=== PATIENT | female | born 1945 | race Caucasian/White ===

== ENCOUNTER → 2017-07-20 09:05 | Outpatient (CLI) | payer MEDICARE, OTHER, SELFPAY ==
[2017-07-20 10:31] LABS: Hemoglobin 14.6 g/dl (12.0-15.0); Mean Corp Hgb Conc 34.8 g/gl (32-36); Mean Corpuscular Hgb 29.7 pg (27.0-32.0); Mean Corpuscular Volume 85.4 fL (81-99); Mean Platelet Vol. 10.3 fl (6.2-12.0); Platelet Count 289 K/mm3 (150-450); RBC Distribution Width CV 12.9 % (11.6-14.6); RBC Distribution Width SD 39.8 fl (35.1-43.9); Red Blood Count 4.92 M/mm3 (4.2-5.4); White Blood Count 4.9 K/mm3 (4.4-11.0)
[2017-07-20 10:41] LABS: Scan Indicated on CBC? Y/N NO
[2017-07-20 10:46] LABS: Microalbumin,Random Urine 11.8 mg/L (NO RANGE EST.); Microalbumin:Creatinine Ratio 19.4 mg/g CRE (<30 mg/g CRE)
[2017-07-20 11:09] LABS: ALB/GLOB Ratio 1.1 RATIO (0.9-2.4); AST(SGOT) 16 U/L (15-37); Alanine Aminotransfer ALT/SGPT 22 U/L (13-56); Alkaline Phosphatase 84 U/L (45-117); Anion Gap 7 (5-15); BUN 14 mg/dL (7-18); BUN/Creat Ratio 17.1 RATIO (10-20); Calcium,Total 8.9 mg/dL (8.5-10.1); Chloride 107 mmol/L (98-107); Cholesterol 189 mg/dL (200); Creatinine, Serum 0.82 mg/dL (0.55-1.02); EST Glomerular Filtration Rate 73 mL/min (>60); Est Glom Filt Rate - Afr Amer 89 mL/min (>60); Globulin 3.8 g/dL (2.2-4.2); Glucose 94 mg/dL (74-106); High Density Lipoprotein 56 mg/dL; Potassium 3.6 mmol/L (3.5-5.1); Protein, Total 7.8 g/dL (6.4-8.2); Sodium Level 140 mmol/L (136-145); Thyroid Stim Hormone (TSH) 3.98 uIU/mL (0.358-3.74); Triglycerides 124 mg/dL; Very Low Density Lipoprotein 25 mg/dL (5-40)
[2017-07-21 10:49] LABS: Vitamin D,25 Hydroxy 72.8 ng/mL (29.95-100.01)
== END ==
PROVIDERS: Family Provider Family Medicine; PCP Family Medicine; Visit Provider Family Medicine
DX: Z00.00 Encounter for general adult medical examination without abnormal findings (principal); M85.80 Other specified disorders of bone density and structure, unspecified site
CPT/HCPCS: 36415; 80053; 80061; 82043; 82306; 82570; 84443; 85027

== ENCOUNTER → 2017-08-26 08:15 | Outpatient (CLI) | payer MEDICARE, OTHER, SELFPAY ==
--- NOTE | 2017-08-26 08:19 | US_ITS ---
STUDY: ABDOMINAL ULTRASOUND - RIGHT UPPER QUADRANT REASON FOR VISIT: Female, 72 years old. Epigastric pain. TECHNIQUE: Ultrasound evaluation of the right upper quadrant was performed with real-time and static post-scale imaging. TECHNICAL QUALITY: Adequate. COMPARISON: Comparison is made with prior examination dated February 05, 2009. FINDINGS: Liver: The liver measures 14.6 cm. There is normal echogenicity of the liver. The bile ducts are within normal limits. There is hepatic color flow. The direction of portal flow is hepatopetal. 2 cysts are seen in the right lobe. The larger measures 7.8 cm x 6.2 cm x 7 cm. This has increased in size as compared to prior study.. Gallbladder: Normal distended gallbladder. The gallbladder wall measures 2.1 mm. There is a negative sonographic Rondon's sign. There is no pericholecystic fluid. There are no gallstones. Sludge is seen within the gallbladder lumen. There is evidence of a 5 mm x 5 mm x 4 mm polyp. Common Bile Duct (C.B.D.): The common bile duct measures 8.2 mm. Pancreas: Normal size of the head, body and tail of the pancreas. There is normal echogenicity of the pancreas. There is no demonstrated pancreatic mass or cyst. Right Kidney: Normal size of the right kidney. The right kidney measures 11.1 cm x 4.1 cm x 3.7 cm. Normal renal cortex. The right cortex measures 1.4 cm. There is a 1 cm x 1 cm x 1 cm cyst. There is no right hydronephrosis. US/Abdomen Limited IMPRESSION: Dominant cyst in the right lobe of the liver. Small amount of sludge within the gallbladder lumen. Gallbladder polyp. Small right renal cyst. Mild dilatation of the common bile duct. Electronically Signed: Carlos Manuel Jamison MD at 15:33 EDT Tel [phone], Service support ,
== END ==
PROVIDERS: Family Provider Family Medicine; PCP Family Medicine; Visit Provider Family Medicine
DX: R10.13 Epigastric pain (principal)
CPT/HCPCS: 76705

== ENCOUNTER 2017-09-09 09:24 | Day surgery (SDC) | payer MEDICARE, OTHER, SELFPAY ==
[2017-09-09] VITALS (10 sets, daily range): BP systolic 147–172; BP diastolic 80–92; PULSE 51–66; RESP 14–18; TEMP 36.1–36.4; O2SAT 95–100; BMI 26.6
--- NOTE | 2017-09-09 | GALL_PTH ---
PATIENT: ZAID ALARCON LOC: [facility] [place] U#:[id number] AGE/SX: 72/F ROOM: RE09/09/[address]: Dr. Jean Velazquez MD : [id number] BED: DIS: 09/09/2017 SPEC #: [id number] RECD: 09/10/17 08:52 STATUS: NOE EUGENIO #: [id number] JOHN: 09/09/17 00:[address]: Jean Velazquez DEPT: SURGICAL PATHOLOGY RECD BY: Castillo Lou ENTERED: 09/10/17 08:52 SP TYPE: CHLOÉ VERGARA DR: Dr. Juvencio Velazquez MD Tissues: Gallbladder, NOS Procedures: Surgery Specimen Level III HEADER OPERATION: Laparoscopic cholecystectomy PRE-OP DIAGNOSIS: Sludge in gallbladder, polyp of gallbladder, right upper quadrant abdominal pain TISSUE SUBMITTED: Gallbladder MICROSCOPIC DIAGNOSIS Gallbladder: Chronic cholecystitis, cholelithiasis and focal cholesterolosis. SJ:abran 09/13/17 COMMENT The polypoid lesion is consistent with cholesterolosis. MICROSCOPIC DESCRIPTION Slides are reviewed. GROSS DESCRIPTION Received is one container labeled with the patient's name and designated gallbladder. The specimen consists of a gallbladder measuring 8 cm in length and 3 cm in diameter. The external surface is pink-brady, smooth and glistening for the most part. Focally it is granular, hemorrhagic and contains cautery artifact. The gallbladder contains green-yellow mucoid bile and multiple black stones and sludge material measuring in aggregate 1 x 1 x 0.3 cm and 0.1 to 0.3 cm in greatest dimension. The mucosa shows a polypoid lesion measuring 0.2 cm in greatest dimension consistent with cholesterolosis. The gallbladder wall measures up to 0.2 cm in thickness. Brass Burnisher sections from the gallbladder and the cystic duct are submitted in one cassette. / SJ:rg 09/10/17 TC:3 CPT: 88906
--- NOTE | 2017-09-09 09:36 | EKG12_ITS ---
Test Reason : POST OP Blood Pressure : / mmHG Vent. Rate : 056 BPM Atrial Rate : 056 BPM P-R Int : 152 ms QRS Dur : 114 ms QT Int : 522 ms P-R-T Axes : 030 -07 100 degrees QTc Int : 503 ms Sinus bradycardia Left ventricular hypertrophy with repolarization abnormality Prolonged QT Abnormal ECG When compared with ECG of 09-SEP-2017 09:50, MANUAL COMPARISON REQUIRED, DATA IS UNCONFIRMED Confirmed by STEVO ENGEL, PONCE ([id number]), scientific editor NATALIE TOUSSAINT ([id number]) on 09/13/2017 2:18:26 PM Referred By: Jean Velazquez Confirmed By:PONCE WHITESIDE MD
[2017-09-09] MEDS: Bupivacaine Mpf 0.5% 30 ML VIAL (10:42)
[2017-09-09] MEDS: Cefazolin 2 GM in 0.9% Normal Saline 100 ML IV (11:00)
--- NOTE | 2017-09-09 11:11 | OP.PCM_ITS ---
Problem List (1) Sludge in gallbladder Status: Acute (2) Gallbladder polyp Status: Acute (3) Right upper quadrant pain Status: Acute Report of Operation Date of Procedure: 09/09/17 Pre-Operative Diagnosis: r82.8 sludge in gall bladder. k82.4 gallbladder polyp. r10.11 ruq abd pain Post-Operative Diagnosis: same Surgery/Procedure Performed:: Laparoscopic cholecystectomy Type of Anesthesia:: General Anesthesiologist: Juvencio Arellano Description of Procedure: Patient was brought into the operating room. Placed in supine position. Under excellent general endotracheal intubation the abdomen was sterilely prepped and draped in the usual fashion. Local was injected infraumbilically. Previous incision was opened. Dissection was carried down to the fascia. Fascia was grasped with Mariama. Varies needle was placed inside the abdomen. The abdomen was insufflated to 15 torr. A 10/12 trocar was placed. Patient was placed in the head up and rotated to the left position. A subxiphoid #5 trocar was placed , inferior to this another #5 trocar was placed, and laterally a #5 trocar was placed. All these under direct visualization without injury to underlying structures. Fundus of the gallbladder was grasped and retracted in a cephalad direction. Moderate amount of adhesions were taken down with electrocautery. I grasped the infundibulum and retracted laterally dissected out the cystic duct and the cystic artery. I placed hemoclips proximally and distally on the duct and proximally and distally on the artery and ligated in between. I deliver the gallbladder from the gallbladder bed with use of electrocautery at small spillage of bile which I was able to retrieve very easily. I placed a specimen a specimen bag delivered through the umbilical port with out difficulty. I irrigated the right upper quadrant used electrocautery for good hemostasis on the liver bed once I had achieved this and retrieved all the irrigant I then remove the trochars under direct visualization. The fascia the umbilical port was closed with figure 8 stitch of 0 Vicryl. Skin incisions were closed with subcuticular stitches of 4-0 Monocryl. Steri-Strips are applied sterile dressings were applied and the patient tolerated the procedure well. - Admit VTE Documentation VTE Present on Admission: No VTE Mechan Device Prophylaxis: SCD's VTE Pharm Prophylaxis ordered?: No Reason prophylaxis not ordered:: Treatment Not Indicated
--- NOTE | 2017-09-09 11:11 | PCM.DC.GB ---
Discharge Diet: Light diet - advance as tolerated Discharge Activity: May Not Drive - for 2-3 days or while taking narcotic pain medications., - - Do not drive, work heavy equipment or sign legal documents for 24 hours. May shower in (days): 1 - with the bandage in place. Additional Activity Instructions:: Pain medication may cause nausea. You should typically eat light foods as you take your pain medications. Pain medication may also cause constipation. If this is a problem for you, please discuss with your doctor. Call your doctor if your incision/area has: Continuous Slow Oozing, Sudden Increased Bleeding, Increased Pain/ Swelling, Increased Redness, Foul Smelling Discharge Call your doctor if you observe: Fever of 101 or Higher Suture Line Care: Avoid Pulling/Pushing, Avoid Pinching/Bending Additional Dressing/Incision Instructions:: Leave operative bandaids on for 2 days. When you remove dressing, leave Steri-Strips on until your follow-up appointment, or until the Steri-Strips fall off on their own. Allergies/Adverse Reactions: Allergies adhesive Allergy (Verified 09/08/17 08:17) Rash hydrocodone bitartrate [From Vicodin] Allergy (Verified 09/07/17 08:34) Other NUMBNESS ON ONE SIDE OF BODY shellfish derived Allergy (Verified 09/08/17 08:17) Swelling Sulfa (Sulfonamide Antibiotics) Allergy (Verified 09/08/17 08:17) Swelling aspartame Adverse Reaction (Verified 09/08/17 08:17) Other MIGRAINE MORLEY Medications to take at Discharge Aspirin E.C. [Ecotrin] 81 mg PO DAILY 01/16/13 Multivitamins,Ther W-Minerals [Multivitamin With Minerals] 1 tab PO DAILY 01/16/13 calcium citrate 200 mg (950 mg) tablet 200 mg PO BID tab 09/07/17 carvedilol 6.25 mg tablet 6.25 mg PO BID 09/07/17 cholecalciferol (vitamin D3) 1,000 unit capsule 1,000 unit PO QDAY 09/07/17 irbesartan 150 mg tablet 75 mg PO QDAY 09/07/17 magnesium oxide 400 mg capsule 400 mg PO DAILY cap 09/07/17 Ascorbic Acid [Vitamin C] 1,000 mg PO DAILY 09/08/17 Anastrozole [Arimidex] 1 mg PO DAILY 09/09/17 L. Acidophilus/Pectin, [place] [Acidophilus-Pectin Captab] 1 each PO DAILY 09/09/17 Oxycodone HCl/Acetaminophen [Percocet 5/325] 1 - 2 tab PO Q4H PRN PRN 5 Days #30 tab 09/09/17 The following prescriptions were given: Oxycodone HCl/Acetaminophen [Percocet 5/325] 1 - 2 tab PO Q4H PRN PRN 5 Days #30 tab PRN Reason: Pain Primary Care Physician: Juvencio Velazquez MD [Primary Care Provider] - Test Results: Test results from this visit will be discussed in further detail at your follow-up appointment, if applicable. Please Follow Up With: Jean Velazquez MD - Please call [phone] to schedule an appointment. When: 7 days after your surgery.
--- NOTE | 2017-09-09 12:41 | EKG12_ITS ---
Test Reason : PRE OP Blood Pressure : / mmHG Vent. Rate : 050 BPM Atrial Rate : 050 BPM P-R Int : 146 ms QRS Dur : 104 ms QT Int : 506 ms P-R-T Axes : 013 -06 096 degrees QTc Int : 461 ms Sinus bradycardia Left ventricular hypertrophy with repolarization abnormality Abnormal ECG When compared with ECG of 16-JAN-2013 15:19, Nonspecific T wave abnormality, improved in Anterior leads Confirmed by STEVO ENGEL, PONCE ([id number]), film editor NATALIE TOUSSAINT ([id number]) on 09/13/2017 2:18:58 PM Referred By: Jean Velazquez Confirmed By:PONCE WHITESIDE MD
[2017-09-09] MEDS: oxyCODONE 5 MG Tablet PO (15:02)
== END 2017-09-09 18:03 | disposition home or self-care (01) ==
LOC: SDC 09:24 → AC 09:25
PROVIDERS: Anesthesiology; Family Provider Family Medicine; PCP Family Medicine; Visit Provider Surgery
PROC: (CPT 47562; principal; 2017-09-09 11:10)
DX: K80.10 Calculus of gallbladder with chronic cholecystitis without obstruction (principal); K82.8 Other specified diseases of gallbladder; K21.9 Gastro-esophageal reflux disease without esophagitis; M79.7 Fibromyalgia; I10 Essential (primary) hypertension; M10.9 Gout, unspecified; Z85.3 Personal history of malignant neoplasm of breast; Z79.82 Long term (current) use of aspirin; Z79.899 Other long term (current) drug therapy
CPT/HCPCS: 47562; 84484; 88304; 93005; J7120; J2405

== ENCOUNTER → 2018-06-23 12:42 | Outpatient (CLI) | payer MEDICARE, OTHER, SELFPAY ==
--- NOTE | 2018-06-23 13:04 | BI_ITS ---
MAMMOGRAPHY - BILATERAL SCREENING 3-D TOMOSYNTHESIS REASON FOR EXAM: Female, 73 years old. Bilateral Screening 3-D tomosynthesis PERTINENT HISTORY: Personal history of breast cancer with previous left lumpectomy. TECHNIQUE: 2-D mammograms and 3-D Tomosynthesis of the breast (s) were performed. CAD was performed. COMPARISON: 03/05/2017 FINDINGS: The breast composition is heterogeneously dense that can obscure small breast masses. Stable architectural distortion in the left breast from previous surgery stable popcorn like calcification in the lower inner left breast. Scattered benign calcifications are seen. No dense spiculated masses or suspicious microcalcifications are identified. No architectural distortion is identified in the right breast. There is no skin thickening or retraction. There has been no significant change since the prior study. BI/SCREENING MAMM (CAD), BILAT IMPRESSION: No mammographic signs of malignancy. Routine yearly mammograms recommended. ASSESSMENT CATEGORY: BIRADS Category 2: Benign. A letter regarding these results will be sent to the patient by the facility within 30 days. FOLLOW UP RECOMMENDATION: Yearly follow up mammogram recommended. (A) Approximately 10% of breast cancers are not detected by mammography. A normal mammogram should not delay biopsy of a clinically suspicious abnormality. Electronically Signed: Mariano Puri MD at 14:51 EDT , Service support ,
== END ==
PROVIDERS: Family Provider Family Medicine; PCP Family Medicine; Referring Provider Family Medicine; Visit Provider Family Medicine
DX: Z12.31 Encounter for screening mammogram for malignant neoplasm of breast (principal); C50.912 Malignant neoplasm of unspecified site of left female breast
CPT/HCPCS: 77063; 77067

== ENCOUNTER → 2019-03-14 11:13 | Outpatient (CLI) | payer MEDICARE, OTHER, SELFPAY ==
[2017-09-09 09:49] VITALS: BMI 26.6
--- NOTE | 2019-03-14 11:21 | RAD_ITS ---
STUDY: X-RAY CHEST REASON FOR EXAM: Female, 73 years old. Hypertension. Breast cancer. TECHNIQUE: Frontal and lateral views of the chest. COMPARISON: None. FINDINGS: The lungs are clear and expanded. There is no demonstrated pleural abnormality. Normal size heart. Normal mediastinum and rick. Normal visualized pulmonary arteries. There is atherosclerotic tortuosity of the aortic arch and descending thoracic aorta. Normal visualized thoracic spine. Normal visualized ribs, clavicles, and shoulders. There is no demonstrated abnormality of the visualized soft tissue structures of the upper abdomen. RAD/Chest PA and Lateral IMPRESSION: No acute chest disease. Electronically Signed: Rafi Plaza MD at 22:51 EST , Service support ,
== END ==
PROVIDERS: Family Provider Family Medicine; PCP Family Medicine; Referring Provider Family Medicine; Visit Provider Family Medicine
DX: I10 Essential (primary) hypertension (principal)
CPT/HCPCS: 71046

== ENCOUNTER → 2019-03-17 08:03 | Outpatient (CLI) | payer MEDICARE, OTHER, SELFPAY ==
[2019-03-17 10:20] LABS: Absolute Neutrophil Count 4.2 X10^3/uL (2.0-7.7); Basophil# 0.02 X10^3/uL; Basophil% 0.3 % (0-1); Eosinophil# 0.05 X10^3/uL; Eosinophils% 0.8 % (0-5); Hematocrit 46.7 % (37-47); Hemoglobin 15.3 g/dL (12.0-15.0); Lymphocyte % 20.1 % (19-41); Mean Corp Hgb Conc 32.8 g/dL (32-36); Mean Corpuscular Hgb 28.5 pg (27.0-32.0); Mean Platelet Vol. 10.2 fl (6.2-12.0); Monocyte# 0.47 X10^3/uL; Monocyte% 7.9 % (0-10); NRBC Flagged by Analyzer 0 % (0-5); Neutrophil # 4.22 X10^3/uL (2.7-7.7); Neutrophil % 70.7 % (47-70); Platelet Count 291 K/mm3 (150-450); RBC Distribution Width CV 12.6 % (11.6-14.6); RBC Distribution Width SD 39.8 fl (35.1-43.9); Red Blood Count 5.37 M/mm3 (4.2-5.4)
[2019-03-17 10:44] LABS: Microalbumin,Random Urine 13.6 mg/L (NO RANGE EST.); Microalbumin:Creatinine Ratio 10.2 mg/g CRE (<30 mg/g CRE)
[2019-03-17 10:46] LABS: AST(SGOT) 13 U/L (15-37); Alanine Aminotransfer ALT/SGPT 25 U/L (13-56); Albumin, Serum 3.8 g/dL (3.2-5.0); Alkaline Phosphatase 91 U/L (45-117); Anion Gap 5 (5-15); BUN 14 mg/dL (7-18); BUN/Creat Ratio 14.8 RATIO (10-20); Calcium,Total 9.5 mg/dL (8.5-10.1); Chloride 109 mmol/L (98-107); Cholesterol 211 mg/dL (200); Creatinine, Serum 0.95 mg/dL (0.55-1.02); EST Glomerular Filtration Rate 61 mL/min (>60); Est Glom Filt Rate - Afr Amer 74 mL/min (>60); Globulin 3.8 g/dL (2.2-4.2); Glucose 107 mg/dL (74-106); High Density Lipoprotein 54 mg/dL; Protein, Total 7.6 g/dL (6.4-8.2); Sodium Level 141 mmol/L (136-145); T4 Free Direct 1.27 ng/dL (0.76-1.46); Thyroid Stim Hormone (TSH) 3.09 uIU/mL (0.358-3.74); Triglycerides 118 mg/dL; Very Low Density Lipoprotein 24 mg/dL (5-40)
== END ==
PROVIDERS: PCP Family Medicine; Referring Provider Family Medicine; Visit Provider Family Medicine
DX: I10 Essential (primary) hypertension (principal)
CPT/HCPCS: 36415; 80053; 80061; 82043; 82570; 84439; 84443; 85025

== ENCOUNTER → 2019-03-25 08:17 | Outpatient (CLI) | payer MEDICARE, OTHER, SELFPAY ==
[2017-09-09 09:49] VITALS: BMI 26.6
[2019-03-31 13:24] LABS: Aldosterone, Serum 6.4 ng/dL (0.0-30.0)
== END ==
PROVIDERS: PCP Family Medicine; Referring Provider Family Medicine; Visit Provider Family Medicine
DX: E87.0 Hyperosmolality and hypernatremia (principal)
CPT/HCPCS: 36415; 82088; 84244

== ENCOUNTER 2019-03-31 14:18 | Inpatient (IN) | payer MEDICARE, OTHER, SELFPAY ==
[2019-03-31] VITALS (8 sets, daily range): BP systolic 106–150; BP diastolic 69–94; PULSE 61–84; RESP 16–20; TEMP 36.2–37.2; O2SAT 94–98; BMI 30.1; BMI 28.9
--- NOTE | 2019-03-31 14:44 | EKG12_ITS ---
Test Reason : SYNCOPE Blood Pressure : / mmHG Vent. Rate : 065 BPM Atrial Rate : 065 BPM P-R Int : 150 ms QRS Dur : 104 ms QT Int : 446 ms P-R-T Axes : 039 -06 080 degrees QTc Int : 463 ms Normal sinus rhythm Left ventricular hypertrophy with repolarization abnormality Abnormal ECG Confirmed by WAQAS ENGEL, RAUL ([id number]), state editor SANDHYA ADKINS ([id number]) on 04/03/2019 3:29:26 PM Referred By: ROBLES Confirmed By:RAUL ALAN MD
--- NOTE | 2019-03-31 14:50 | ED.VIS.GEN ---
History of Present Illness Chief Complaint: Syncope Informant: Patient, Significant Other Onset: Today Narrative: Patient is a 73-year-old female with history of difficult to control hypertension as well as fibromyalgia presenting after syncopal episode. Patient states she was eating lunch when she was sitting at the table and started to feel lightheaded. She states she was having tunnel vision. Patient thought she put her head down on a table but then states the next thing she knew EMS was there. said that she passed out in the chair and initially was slumped to the side and then her head fell backwards. There is no report of any seizure activity. Patient did not bite her tongue or urinate on herself. Patient notes his last week she has felt like she has had the flu. She had aches, fever and myalgias. She also notes that 1 week ago she was put on 2 new blood pressure medications. She thinks 1 is isosorbide mononitrate. She does not recall the name of the other medication. Patient did not take her afternoon medication but did take her morning meds. She states yesterday when she was lying in bed and she felt so sick that she could get out of bed she checked her blood pressure and it was 74 systolic. Per EMS report patient's blood pressure was in the 80s on their arrival. Patient states that she currently feels a little better but still feels ill. Patient, she is had a dry cough that is been nonproductive. She denies any other complaints or concerns at this time. Past Medical History - Allergies and Home Meds Allergies/Adverse Reactions: Allergies adhesive Allergy (Verified 03/31/19 14:29) Rash hydrocodone bitartrate [From Vicodin] Allergy (Verified 03/31/19 16:25) NUMBNESS ON ONE SIDE OF BODY NUMBNESS ON ONE SIDE OF BODY shellfish derived Allergy (Verified 03/31/19 16:37) Angioedema Sulfa (Sulfonamide Antibiotics) Allergy (Verified 03/31/19 16:37) Swelling/hives aspartame Adverse Reaction (Verified 03/31/19 16:25) MIGRAINE MORLEY MIGRAINE MORLEY Past Medical History: - - Hypertension, fibromyalgia, coronary artery disease Surgical History: - - Cardiac catheterization, femoral artery surgery Smoking Status: Never smoker - Family History Maternal Family History: Family History (Last Reviewed 03/31/19 @ 15:58 by ZAMZAM More) Mother Arthritis Hypertension Heart disease High cholesterol Osteoporosis Father Skin cancer Sister Kidney disease lupus/autoimmune disease Paternal Family History: Family History (Last Reviewed 03/31/19 @ 15:58 by ZAMZAM More) Mother Arthritis Hypertension Heart disease High cholesterol Osteoporosis Father Skin cancer Sister Kidney disease lupus/autoimmune disease Review of Systems General: Reports: Chills, Fever, Malaise. Denies: Sweats Eyes: Reports: Blurred Vision - bilaterally - Just prior to syncopal episode. Denies: Visual changes - bilaterally, Diplopia ENT: Denies: Rhinorrhea, Sore throat Cardiovascular: Denies: Chest pain, Palpitations Respiratory: Reports: Cough. Denies: Dyspnea, Dyspnea on exertion Gastrointestinal: Denies: Abdominal pain, Nausea, Vomiting, Diarrhea, Melena, Hematochezia Genitourinary: Denies: Dysuria, Hematuria, Frequency Musculoskeletal: Reports: Myalgias. Denies: Back pain, Extremity Pain Skin: Denies: Rash, Wounds Neurological: Denies: Headache, Weakness, Numbness Physical Exam Vital Signs/Narrative: Vital Signs Temp Pulse Resp BP Pulse Ox 03/31/19 14:21 97.2 F L 64 16 117/76 98 Inital Vital Signs reviewed: Yes General: Well nourished, Well developed, No Acute Distress Head: Normocephalic, Atraumatic Eyes: Perrl, EOMI ENT: Moist mucous membranes, No rhinorrhea, TM's clear Neck: Supple, Nontender, No JVD Cardiovascular: Regular rate, Regular rhythm, No murmurs Respiratory: No distress, CTA bilaterally, Chest nontender Abdomen: Soft, Nontender, Nondistended, Normal bowel sounds Back: Nontender, Normal Inspection Extremities: Nontender, No edema Skin: Normal color, No rash Neurological: Alert, Oriented x3, Cranial nerves II-XII grossly intact, Normal Strength, Normal Sensation Psychological: Normal affect, Normal Mood Diagnostic/Tx/Re-eval Clinical Impression(s) from Imaging Studies Chest X-Ray 03/31/19 14:57 IMPRESSION: No acute abnormality is seen. Electronically Signed: Carlos Manuel Jamison, at 15:34 EST , Service support , Laboratory Data 03/31/19 03/31/19 03/31/19 14:26 14:26 14:26 WBC 4.5 RBC 4.10 L Hgb 11.8 L Hct 35.2 L MCV 85.9 MCH 28.8 MCHC 33.5 RDW Std Deviation 39.2 RDW Coeff of Smiley 12.6 Plt Count 122 L MPV 11.6 Immature Gran % (Auto) 0.200 Neut % (Auto) 73.4 H Lymph % (Auto) 10.8 L Morrison % (Auto) 11.9 H Eos % (Auto) 3.5 Baso % (Auto) 0.2 Absolute Neuts (auto) 3.3 Absolute Lymphs (auto) 0.49 L Nucleated RBC % 0 Differential Comment SCANNED Sodium 142 Potassium 2.3 L* Chloride 116 H Carbon Dioxide 20.0 L Anion Gap 6 BUN 15 Creatinine 0.53 L Estim Creat Clear Calc 43.91 Est GFR (MDRD) Af Amer 146 Est GFR (MDRD) Non-Af 121 BUN/Creatinine Ratio 28.4 H Glucose 118 H Lactic Acid Calcium 5.8 L* Magnesium 1.4 L Troponin I 0.019 Urine Color Urine Clarity Urine pH Ur Specific [place] Urine Protein Urine Glucose (UA) Urine Ketones Urine Occult Blood Urine Nitrite Urine Bilirubin Urine Urobilinogen Ur Leukocyte Esterase 03/31/19 03/31/19 15:26 15:35 WBC RBC Hgb Hct MCV MCH MCHC RDW Std Deviation RDW Coeff of Smiley Plt Count MPV Immature Gran % (Auto) Neut % (Auto) Lymph % (Auto) Morrison % (Auto) Eos % (Auto) Baso % (Auto) Absolute Neuts (auto) Absolute Lymphs (auto) Nucleated RBC % Differential Comment Sodium Potassium Chloride Carbon Dioxide Anion Gap BUN Creatinine Estim Creat Clear Calc Est GFR (MDRD) Af Amer Est GFR (MDRD) Non-Af BUN/Creatinine Ratio Glucose Lactic Acid 1.2 Calcium Magnesium Troponin I Urine Color Yellow Urine Clarity Sl. Cloudy Urine pH 6.5 Ur Specific [place] 1.015 Urine Protein 30 H Urine Glucose (UA) Normal Urine Ketones Negative Urine Occult Blood 25 H Urine Nitrite Negative Urine Bilirubin Negative Urine Urobilinogen 1 H Ur Leukocyte Esterase 25 H - Rhythm Strip Rhythm Strip: Sinus Rhythm Rate: 65 Ectopy: None - EKG Initial EKG Interpretation: Sinus Rhythm, - - Sinus rhythm at a rate of 65 LVH Left axis deviation Normal intervals Normal ST segments - Medical Decision Making Patient is evaluated for an episode of syncope that occurred at home. She was sitting down when it happened. She did feel lightheaded and have some type of prodrome before it. No report of any seizure activity. EKG is normal. Flu swab is negative. Physical exam is benign. Chest x-rays not show any acute process. She was found to have significant electrolyte derangement. Her potassium was 2.3. Her calcium was 5.3. Her lactate is normal. Her kidney function and CBC are normal. I did add on a ionized calcium as well as a magnesium level. Her magnesium is also low. Oral and IV potassium replacement are started in the emergency room. Patient be admitted for further evaluation of her syncope which I suspect is related to her electrolyte abnormalities. Patient's troponin is within normal limits. Magnesium will be replaced per admitting physician. Patient is agreeable with this plan. She stable for PCU at time of disposition. Is possible that her electrolyte derangement might be from her multiple blood pressure medications. Her syncope could be related to her new medication as well and intermittent hypotension. This will be evaluated further. ED Disposition - Plan for ED Patient: Diagnosis: Syncope, Hypocalcemia, Hypokalemia, Low magnesium level
[2019-03-31] MEDS: 0.9% Normal Saline 1,000 ML 1000 ML IV (14:53)
--- NOTE | 2019-03-31 14:57 | RAD_ITS ---
STUDY: X-RAY CHEST REASON FOR EXAM: Female, 73 years old. SYNCOPE EPISODE TODAY, PT WITH COUGH AND WEAKNESS, FLU-LIKE SYMPTOMS SINCE WEDNESDAY -- HX OF HTN AND BREAST CANCER TECHNIQUE: PA and lateral views of the chest. COMPARISON: Comparison is made with prior study dated September 29, 2019. FINDINGS: EKG electrodes are seen. The lungs are clear and expanded. There is no demonstrated pleural abnormality. Normal size heart. Normal mediastinum and rick. Normal visualized pulmonary arteries. There is atherosclerotic calcification of the aortic arch with tortuosity. There are degenerative changes of the visualized thoracic spine. Normal visualized ribs, clavicles, and shoulders. There is no demonstrated abnormality of the visualized soft tissue structures of the upper abdomen. RAD/Chest PA and Lateral IMPRESSION: No acute abnormality is seen. Electronically Signed: Carlos Manuel Jamison, at 15:34 EST , Service support ,
[2019-03-31 15:04] LABS: Absolute Lymphocyte Count 0.49 X10^3/uL (0.83-4.51); Absolute Neutrophil Count 3.3 X10^3/uL (2.0-7.7); Basophil# 0.01 X10^3/uL; Basophil% 0.2 % (0-1); Eosinophil# 0.16 X10^3/uL; Eosinophils% 3.5 % (0-5); Hematocrit 35.2 % (37-47); Hemoglobin 11.8 g/dL (12.0-15.0); Lymphocyte # 0.49 X10^3/ul (4.0); Lymphocyte % 10.8 % (19-41); Mean Corp Hgb Conc 33.5 g/dL (32-36); Mean Corpuscular Hgb 28.8 pg (27.0-32.0); Mean Corpuscular Volume 85.9 fL (81-99); Mean Platelet Vol. 11.6 fl (6.2-12.0); Monocyte# 0.54 X10^3/uL; Monocyte% 11.9 % (0-10); NRBC Flagged by Analyzer 0 % (0-5); Neutrophil # 3.32 X10^3/uL (2.7-7.7); Neutrophil % 73.4 % (47-70); POSITIVE DIFFERENTIAL YES; Platelet Count 122 K/mm3 (150-450); RBC Distribution Width CV 12.6 % (11.6-14.6); RBC Distribution Width SD 39.2 fl (35.1-43.9); White Blood Count 4.5 K/mm3 (4.4-11.0)
[2019-03-31 15:06] LABS: Differential Indicated SCAN CRITERIA MET
[2019-03-31 15:19] LABS: Anion Gap 6 (5-15); BUN 15 mg/dL (7-18); BUN/Creat Ratio 28.4 RATIO (10-20); Calcium,Total 5.8 mg/dL (8.5-10.1); Chloride 116 mmol/L (98-107); Creatinine, Serum 0.53 mg/dL (0.55-1.02); EST Glomerular Filtration Rate 121 mL/min (>60); Est Glom Filt Rate - Afr Amer 146 mL/min (>60); Estimated Creatinine Clearance 43.91 ml/min; Glucose 118 mg/dL (74-106); Potassium 2.3 mmol/L (3.5-5.1); Sodium Level 142 mmol/L (136-145)
[2019-03-31 15:44] LABS: Mucous, Urine 0 SEEN /hpf (<or=2+)
[2019-03-31 15:46] LABS: Color, Urine Yellow (Yellow); Glucose, Dipstick Normal (Normal); Ketone-Dipstick Negative (Negative); Leukocyte Esterase-Dipstick 25 /ul (Negative); Nitrite-Dipstick Negative (Negative); Occult Blood-Urine 25 /ul (Negative); Protein-Dipstick 30 mg/dl (Negative); Specific Gravity, Urine 1.015 (1.002-1.030); Urine Bilirubin Dipstick Negative (Negative); Urine Clarity Sl. Cloudy (Clear); Urine Urobilinogen 1 mg/dl (Normal); Urine pH 6.5 (5.0 - 8.0)
--- NOTE | 2019-03-31 15:53 | PCM.HP.STD ---
Problem List (1) Sludge in gallbladder Status: Chronic (2) Gallbladder polyp Status: Chronic (3) HTN (hypertension) Status: Chronic History of Present Illness Date of Admission: 03/31/19 Chief Complaint: Syncope. The patient is a 73 year old F who presents emergency room due to episode of syncope as well as general malaise. Patient was eating lunch with her when she developed tunnel vision and subsequently passed out. witnessed event. He reports her tongue was sticking out of her mouth and turned blue. He states she lost consciousness for approximately 3 to 4 minutes. He notes she had heavy breathing during that time. He denies any jerking movements or other abnormal observations. Patient reports she has felt generally unwell for the past week and 1/2 to 2 weeks. Her blood pressure regimen was recently adjusted due to uncontrolled hypertension. She reports poor appetite, general malaise, lightheadedness and subjective fever. She has a past medical history of left breast cancer, hypertension and fibromyalgia. Past Medical History Past Medical History (Chronic Problems): Chronic Problems (Last Updated 09/16/17 @ 09:58 by Lo Sosa) HTN (hypertension) (Chronic) Sludge in gallbladder (Chronic) Gallbladder polyp (Chronic) Medical History: Medical History (Last Updated 09/16/17 @ 09:58 by Lo Sosa) Abdominal pain R10.9 Acid reflux K21.9 Breast cancer, left C50.912 Chronic cholecystitis K81.1 Diarrhea R19.7 Gout M10.9 Nausea & vomiting R11.2 Hypertension I10 Allergies adhesive Allergy (Verified 03/31/19 14:29) Rash hydrocodone bitartrate [From Vicodin] Allergy (Verified 03/31/19 14:29) Other NUMBNESS ON ONE SIDE OF BODY shellfish derived Allergy (Verified 03/31/19 14:29) Swelling Sulfa (Sulfonamide Antibiotics) Allergy (Verified 03/31/19 14:29) Swelling aspartame Adverse Reaction (Verified 03/31/19 14:29) Other MIGRAINE MORLEY Home Medications: Ambulatory Orders Medication Instructions Recorded Aspirin E.C. [Ecotrin] 81 mg PO DAILY 01/16/13 Multivitamins,Ther W-Minerals 1 tab PO DAILY 01/16/13 [Multivitamin With Minerals] calcium citrate 200 mg (950 mg) 200 mg PO DAILY tab 09/07/17 tablet irbesartan 150 mg tablet 150 mg PO BID 09/07/17 Anastrozole [Arimidex] 1 mg PO DAILY 09/09/17 Carvedilol 12.5 mg PO BID 03/31/19 Cholecalciferol (VIT D3) [Vitamin 1,000 unit PO DAILY 03/31/19 D] Isosorbide Mononitrate [Isosorbide 30 mg PO DAILY 03/31/19 Mononitrate ER] hydrALAZINE [Apresoline] 50 mg PO TID 03/31/19 Surgical History: Surgical History (Last Updated 09/16/17 @ 09:58 by Lo Sosa) History of abdominal hysterectomy Z90.710 History of laparoscopic cholecystectomy Onset Date: ~09/09/17 Z90.49 History of lumpectomy of left breast Z98.890 Surgical History: - - Cardiac catheterization, femoral artery surgery, lap crow, hysterectomy, left breast lumpectomy Psychiatric History: No pertinent psych hx ORTHOPEDIC ASSISTANT History: No pertinent ORTHOPEDIC ASSISTANT history Lives: Spouse/ Significant Other Smoking Status: Never smoker Alcohol: Rare Drugs: None - *Family History Maternal Family History: Family History (Last Reviewed 03/31/19 @ 15:58 by ZAMZAM More) Mother Arthritis Hypertension Heart disease High cholesterol Osteoporosis Father Skin cancer Sister Kidney disease lupus/autoimmune disease Paternal Family History: Family History (Last Reviewed 03/31/19 @ 15:58 by ZAMZAM More) Mother Arthritis Hypertension Heart disease High cholesterol Osteoporosis Father Skin cancer Sister Kidney disease lupus/autoimmune disease Review of Systems Constitutional: Reports: Fever, Malaise, Fatigue. Denies: Chills, Weight Change HEENT: Denies: Head Aches, Sinus Congestion, Sinus Drainage Cardiovascular: Reports: Syncope. Denies: Chest Pain, Palpitations Respiratory: Denies: Cough, Shortness of breath at rest, Sputum production Gastrointestinal: Denies: Abdominal Pain, Nausea, Vomiting Genitourinary: Denies: Dysuria Musculoskeletal: Denies: Joint Pain, Joint Tenderness Skin: Denies: Rash, Wounds Neurological: Denies: Numbness, Tingling, Focal weakness Psychiatric: Denies: Anxiety, Depression, Homicidal Ideations, Suicidal Ideations Hematologic/ Lymphatic: Denies: Easy Bruising, Easy Bleeding VTE Information - Inpt Only VTE Present on Admission: No VTE Mechan Device Prophylaxis: None VTE Pharm Prophylaxis ordered?: Yes - Physical Exam Vitals/I&O's: Vital Signs Temp Pulse Resp BP Pulse Ox 97.2 F L 65 16 113/69 98 03/31/19 14:21 03/31/19 14:45 03/31/19 14:21 03/31/19 14:45 03/31/19 14:21 Oxygen Delivery Method Room Air Weight: 175 lb 4.28 oz Body Mass Index (BMI) 30.0 General: Alert, Oriented x3, Cooperative HEENT: Atraumatic, PERRLA, EOMI, Normocephalic Oral: Dry Mucosa Neck: Supple, No JVD, Negative Carotid Bruits Lungs: Clear to auscultation, Normal air movement Cardiovascular: Regular rate, Regular Rhythm, Normal S1, Normal S2, No murmurs Abdomen: Bowel Sounds Present, Soft, Non Tender, Non-Distended Extremities: No clubbing, No cyanosis, No edema, Capillary Refill Less than 3 Seconds Skin: No rashes, No breakdown Musculoskeletal: No Tenderness to Palpation of Joints or Extremities Neurological: Cranial nerves II-XII grossly intact, Neuro grossly intact Psych/Mental Status: Normal Affect, Appropriate Laboratory Results 03/31/19 14:26: WBC 4.5, RBC 4.10 L, Hgb 11.8 L, Hct 35.2 L, MCV 85.9, MCH 28.8, MCHC 33.5, RDW Std Deviation 39.2, RDW Coeff of Smiley 12.6, Plt Count 122 L, MPV 11.6, Immature Gran % (Auto) 0.200, Neut % (Auto) 73.4 H, Lymph % (Auto) 10.8 L, Bailey % (Auto) 11.9 H, Eos % (Auto) 3.5, Baso % (Auto) 0.2, Absolute Neuts (auto) 3.3, Absolute Lymphs (auto) 0.49 L, Nucleated RBC % 0 03/31/19 14:26: Sodium 142, Potassium 2.3 L*, Chloride 116 H, Carbon Dioxide 20.0 L, Anion Gap 6, BUN 15, Creatinine 0.53 L, Estim Creat Clear Calc 43.91, Est GFR (MDRD) Af Amer 146, Est GFR (MDRD) Non-Af 121, BUN/Creatinine Ratio 28.4 H, Glucose 118 H, Calcium 5.8 L*, Troponin I 0.019 03/31/19 14:26: Magnesium Pending 03/31/19 15:26: Lactic Acid Pending 03/31/19 15:35: Urine Color Yellow, Urine Clarity Sl. Cloudy, Urine pH 6.5, Ur Specific [place] 1.015, Urine Protein 30 H, Urine Glucose (UA) Normal, Urine Ketones Negative, Urine Occult Blood 25 H, Urine Nitrite Negative, Urine Bilirubin Negative, Urine Urobilinogen 1 H, Ur Leukocyte Esterase 25 H, Urine RBC Pending, Urine WBC Pending, Ur Squamous Epith Cells Pending, Urine Bacteria Pending, Urine Mucus Pending Current Medications Potassium Chloride () 10 meq in 100 mls @ 100 mls/hr IV BOLUS Q1H GEOFF Stop: 03/31/19 19:44 Assessment/Plan 1. Syncope-orthostatic vitals negative. Troponin negative. Obtain echocardiogram. Repeat in a.m. IV fluids. 2. Hypokalemia, hypocalcemia, hypomagnesia-replace per protocol, trend BMP, mag. Check phosphorus, TSH, vitamin D. 3. Hypertension-hold BP regimen given current hypotension. PRN hydralazine. Recently placed on hydralazine and isosorbide and patient reports not feeling well since that time. 4. History of breast cancer-on Arimidex. Mammogram May 2018 reported to be normal. DVT prophylaxis-Lovenox subcu This patient was seen by ZAMZAM More under the supervision of Dr. Cope.
[2019-03-31 15:59] LABS: Magnesium 1.4 mg/dL (1.6-2.6)
[2019-03-31 16:00] LABS: Lactic Acid 1.2 mmol/L (0.4-1.9)
[2019-03-31] MEDS: Potassium Chloride 10mEq/100mL 10 MEQ/100 ML IV.SOLN. 100 MEQ IV BOLUS (16:03)
[2019-03-31 16:08] LABS: Differential Comment SCANNED
--- NOTE | 2019-03-31 16:33 | NURSING ---
PCU WHITE HYPOKALEMIA, SYNCOPE
[2019-03-31 17:14] LABS: Bacteria 2+ /hpf (None Seen); Red Blood Cells-Urine 0-5 SEEN /hpf (0-5); Squamous Epithelial Cells - UA 0-5 SEEN /hpf (5-10); White Blood Cells 5-10 SEEN /hpf (0-5)
--- NOTE | 2019-03-31 17:41 | ECHOD_ITS ---
Reason For Study: Syncope/Near Syncope Procedure This was a 2D Doppler, Color Flow transthoracic echocardiogram. Myocardial strain analysis was performed in this exam to aid in the assessment of cardiac function. The exam was of adequate technical quality. Exam performed portable in patient room. Left Ventricle Normal LV size. Left ventricular systolic function is normal. The estimated ejection fraction is 65 %. The global longitudinal strain = -18 % (normal). There is evidence of diastolic dysfunction. No regional wall motion abnormalities noted. Right Ventricle Normal RV size. Normal systolic function. Atria The left atrium is moderately enlarged. Normal right atrium. No doppler evidence for ASD. Mitral Valve There is no mitral annular calcification. Normal mitral valve. Moderate (2+) mitral valve insufficiency. Tricuspid Valve Normal tricuspid valve. Moderate (2+) tricuspid valve insufficiency. Right ventricular systolic pressure estimated to be 33 mmHg. Aortic Valve Trisinus/trileaflet aortic valve. Normal aortic valve. Mild (1+) aortic valve insufficiency. Pulmonic Valve The pulmonic valve is not well visualized. Trivial pulmonic valve insufficiency. Great Vessels The ascending aorta is mild-moderately dilated. Pericardium/Pleural Epicardial fat. No pericardial effusion. MMode/2D Measurements & Calculations LVIDd: 4.9 cm IVSd: 1.2 cm Ao root diam: 4.3 cm LVIDs: 3.5 cm LVPWd: 1.2 cm RVDd: 3.1 cm FS: 27.9 % LAV(MOD-bp): 76.7 ml LVAd ap4: 25.9 cm2 SV(MOD-sp4): 40.3 ml LAV(MOD-bp) Indexed: 41.5 ml/m2 EDV(MOD-sp4): 73.2 ml LAV(MOD-sp2): 82.3 ml EDV(sp4-el): 74.6 ml LAV(MOD-sp4): 68.5 ml LVAs ap4: 15.2 cm2 ESV(MOD-sp4): 32.9 ml ESV(sp4-el): 31.2 ml EF(MOD-sp4): 55.1 % EF(sp4-el): 58.2 % SV(sp4-el): 43.4 ml LA A4 area: 22.4 cm2 LA dimension(2D): 4.3 cm RA A4 area: 17.2 cm2 Doppler Measurements & Calculations MV E max dandre: 79.3 cm/sec Lat Peak E' Dandre: 7.0 cm/sec Med Peak E' Dandre: 3.9 cm/sec MV A max dandre: 82.5 cm/sec E/E' lat: 11.4 E/E' med: 20.5 MV E/A: 0.96 Ao V2 max: 160.8 cm/sec AI max dandre: 412.4 cm/sec LV V1 max: 113.5 cm/sec Ao max P.3 mmHg AI max P.1 mmHg LV V1 max P.2 mmHg Ao V2 mean: 110.3 cm/sec Ao mean P.4 mmHg AI dec slope: 227.9 cm/sec2 Ao V2 VTI: 32.9 cm AI P1/2t: 530.0 msec PA V2 max: 84.7 cm/sec TR max dandre: 272.3 cm/sec TR max P.6 mmHg Interpretation Summary Left ventricular systolic function is normal. The estimated ejection fraction is 65 %. The global longitudinal strain = -18 % (normal). The left atrium is moderately enlarged. Moderate (2+) mitral valve insufficiency. Moderate (2+) tricuspid valve insufficiency. Mild (1+) aortic valve insufficiency. Trivial pulmonic valve insufficiency. The ascending aorta is mild-moderately dilated. Epicardial fat. Right ventricular systolic pressure estimated to be 33 mmHg. There is evidence of diastolic dysfunction. Ordering Physician: Macarena Cope Referring Physician: Juvencio Velazquez Performed By: Irene Mg, [place], RVT
[2019-03-31 18:19] LABS: PTHIN 16.9 pg/mL (18.4-80.1)
[2019-03-31 18:31] LABS: Vitamin B12 487 pg/mL (211-911)
[2019-03-31] MEDS: Potassium Chloride 10mEq/100mL 10 MEQ/100 ML IV.SOLN. 50 MEQ IV BOLUS ×2 (18:32→19:35)
[2019-03-31] MEDS: 0.9% Normal Saline 1,000 ML 100 ML IV (18:33)
[2019-03-31 18:51] LABS: Ferritin 647 ng/mL (8-252); Iron 21 ug/dL (50-170); Iron Binding Capacity,Total 179 ug/dL (250-450); PERCENT IRON SATURATION 11.7 % (15.0-55.0); Phosphorus 1.8 mg/dL (2.5-4.9); Thyroid Stim Hormone (TSH) 2.09 uIU/mL (0.358-3.74)
[2019-03-31] MEDS: Magnesium Sulfate 4gm/100mL 4 GM/100 ML IV.SOLN. IV (19:31)
[2019-03-31] MEDS: Potassium Chloride 10mEq/100mL 10 MEQ/100 ML IV.SOLN. 75 MEQ IV BOLUS (21:25)
[2019-03-31 22:25] LABS: Anion Gap 4 (5-15); BUN 17 mg/dL (7-18); BUN/Creat Ratio 20.1 RATIO (10-20); Calcium,Total 9.1 mg/dL (8.5-10.1); Chloride 109 mmol/L (98-107); Creatinine, Serum 0.85 mg/dL (0.55-1.02); EST Glomerular Filtration Rate 70 mL/min (>60); Est Glom Filt Rate - Afr Amer 85 mL/min (>60); Estimated Creatinine Clearance 51.66 ml/min; Glucose 155 mg/dL (74-106); Potassium 3.8 mmol/L (3.5-5.1); Sodium Level 138 mmol/L (136-145)
[2019-04-01] VITALS (8 sets, daily range): BP systolic 140–166; BP diastolic 78–98; PULSE 65–88; RESP 16–20; TEMP 36.6–36.9; O2SAT 95–97
[2019-04-01] MEDS: 0.9% Normal Saline 1,000 ML 100 ML IV (03:55)
--- NOTE | 2019-04-01 05:55 | EKG12_ITS ---
Test Reason : AM EKG Blood Pressure : / mmHG Vent. Rate : 074 BPM Atrial Rate : 074 BPM P-R Int : 146 ms QRS Dur : 110 ms QT Int : 408 ms P-R-T Axes : 027 009 082 degrees QTc Int : 452 ms Normal sinus rhythm Normal ECG When compared with ECG of 31-MAR-2019 15:08, MANUAL COMPARISON REQUIRED, DATA IS UNCONFIRMED Confirmed by STEVO ENGEL, PONCE ([id number]), video tape editor PATRICK WESLEY ([id number]) on 04/04/2019 8:39:59 AM Referred By: DR VEGA Confirmed By:PONCE WHITESIDE MD
[2019-04-01 07:06] LABS: Absolute Lymphocyte Count 0.66 X10^3/uL (0.83-4.51); Basophil# 0.01 X10^3/uL; Basophil% 0.2 % (0-1); Eosinophil# 0.22 X10^3/uL; Eosinophils% 4.8 % (0-5); Hematocrit 32.6 % (37-47); Lymphocyte # 0.66 X10^3/ul (4.0); Lymphocyte % 14.5 % (19-41); Mean Corp Hgb Conc 33.7 g/dL (32-36); Mean Corpuscular Hgb 28.6 pg (27.0-32.0); Mean Corpuscular Volume 84.7 fL (81-99); Mean Platelet Vol. 11.2 fl (6.2-12.0); Monocyte# 0.67 X10^3/uL; Monocyte% 14.7 % (0-10); NRBC Flagged by Analyzer 0 % (0-5); Neutrophil # 2.98 X10^3/uL (2.7-7.7); Neutrophil % 65.4 % (47-70); Platelet Count 130 K/mm3 (150-450); RBC Distribution Width SD 40.2 fl (35.1-43.9); Red Blood Count 3.85 M/mm3 (4.2-5.4); White Blood Count 4.6 K/mm3 (4.4-11.0)
[2019-04-01 07:25] LABS: ALB/GLOB Ratio 0.8 RATIO (0.9-2.4); AST(SGOT) 37 U/L (15-37); Alanine Aminotransfer ALT/SGPT 70 U/L (13-56); Albumin, Serum 2.4 g/dL (3.2-5.0); Alkaline Phosphatase 74 U/L (45-117); Anion Gap 4 (5-15); BUN 11 mg/dL (7-18); BUN/Creat Ratio 16.8 RATIO (10-20); Chloride 110 mmol/L (98-107); Creatinine, Serum 0.65 mg/dL (0.55-1.02); EST Glomerular Filtration Rate 95 mL/min (>60); Est Glom Filt Rate - Afr Amer 114 mL/min (>60); Estimated Creatinine Clearance 43.91 ml/min; Glucose 99 mg/dL (74-106); Magnesium 2.2 mg/dL (1.6-2.6); Potassium 3.6 mmol/L (3.5-5.1); Protein, Total 5.4 g/dL (6.4-8.2); Sodium Level 139 mmol/L (136-145)
[2019-04-01] MEDS: Multivitamins,Ther W-Minerals Tablet 1 TABLET PO (09:44)
[2019-04-01] MEDS: Anastrozole 1 MG Tablet PO (09:44)
[2019-04-01] MEDS: Enoxaparin 40 MG/0.4 ML Syringe SC (09:44)
--- NOTE | 2019-04-01 11:36 | PCM.DC ---
- Discharge Diagnoses Current Active Problems: Current Active and Chronic Problems (Last Updated 09/16/17 @ 09:58 by Lo Sosa) HTN (hypertension) (Chronic) Syncope (Acute) Hypocalcemia (Acute) Hypokalemia (Acute) Low magnesium level (Acute) You will use the following diet at home:: No restrictions Discharge Activity: Return to Normal Activity Call your doctor if you observe: Shortness of breath, Dizziness, Fainting spells, Chest pain Allergies/Adverse Reactions: Allergies adhesive Allergy (Verified 03/31/19 14:29) Rash hydrocodone bitartrate [From Vicodin] Allergy (Verified 03/31/19 16:25) NUMBNESS ON ONE SIDE OF BODY NUMBNESS ON ONE SIDE OF BODY shellfish derived Allergy (Verified 03/31/19 16:37) Angioedema Sulfa (Sulfonamide Antibiotics) Allergy (Verified 03/31/19 16:37) Swelling/hives aspartame Adverse Reaction (Verified 03/31/19 16:25) MIGRAINE MORLEY MIGRAINE MORLEY Medications to take at Discharge Aspirin E.C. [Ecotrin] 81 mg PO DAILY 01/16/13 Multivitamins,Ther W-Minerals [Multivitamin With Minerals] 1 tab PO DAILY 01/16/13 calcium citrate 200 mg (950 mg) tablet 200 mg PO DAILY tab 09/07/17 irbesartan 150 mg tablet 150 mg PO BID 09/07/17 Anastrozole [Arimidex] 1 mg PO DAILY 09/09/17 Carvedilol 12.5 mg PO BID 03/31/19 Cholecalciferol (VIT D3) [Vitamin D3] 1,000 unit PO DAILY 03/31/19 Amlodipine [Norvasc] 5 mg PO DAILY #30 tab 04/01/19 The following prescriptions were given: Amlodipine [Norvasc] 5 mg PO DAILY #30 tab Transmission Status: Pending to [facility]/pharmacy #[id number] Primary Care Physician: Juvencio Velazquez MD [Primary Care Provider] - Please follow up with your Primary Care Physician in: 3-5 Days Test Results: Test results from this visit will be discussed in further detail at your follow-up appointment, if applicable. Proposed Discharge Date: 04/01/19
--- NOTE | 2019-04-01 11:38 | DS.PCM_ITS ---
Discharge Date and Diagnosis Date of Admission: 03/31/19 Date of Discharge: 04/01/19 - Primary Discharge Diagnosis Active and Suspected Problems (Last Updated 09/16/17 @ 09:58 by Lo Sosa) 1. Syncope-suspect secondary to electrolyte disturbances. 2. Electrolyte disturbances with hypokalemia, hypocalcemia, hypomagnesia, hypophosphatemia 3. Hypertension 4. History of breast cancer-on Arimidex. Mammogram May 2018 reported to be normal. 5. Normocytic anemia/iron deficiency anemia - Secondary Discharge Diagnosis Chronic Problems (Last Updated 09/16/17 @ 09:58 by Lo Sosa) HTN (hypertension) (Chronic) Sludge in gallbladder (Chronic) Gallbladder polyp (Chronic) Hospital Course and Treatment Imaging Results: Diagnostic Data Chest X-Ray 03/31/19 14:57 IMPRESSION: No acute abnormality is seen. Electronically Signed: Carlos Manuel Yaquelin, at 15:34 EST , Service support , Operations: None Procedures: 2-D Echocardiogram Summary of Care Provided: The patient is a 73 year old F admitted 03/31/2019 due to syncope. 1. Syncope-orthostatic vitals negative. Troponin negative. Suspect syncope secondary to electrolyte disturbances. Echocardiogram pending and will be reviewed prior to discharge. 2. Electrolyte disturbances with hypokalemia, hypocalcemia, hypomagnesia, hypophosphatemia-electrolyte disturbances resolved with replacement. PTH low, 16.9. TSH normal. Vitamin D level pending at discharge. Patient will need further follow-up as outpatient regarding abnormal PTH. 3. Hypertension-blood pressure regimen held during admission due to hypotension and blood pressure remained stable. Isosorbide and hydralazine recently added and these were discontinued at discharge. Added on amlodipine 5 mg daily. Recommend patient check blood pressure twice daily at home and document findings to report to primary care provider for further adjustment. 4. History of breast cancer-on Arimidex. Mammogram May 2018 reported to be normal. Follow-up with oncology for routine follow-up. 5. Normocytic anemia/iron deficiency anemia-IV Venofer x1. Discharged on ferrous sulfate 325 mg p.o. twice daily. General: Alert, Oriented x3, Cooperative HEENT: Atraumatic, PERRLA, EOMI, Normocephalic Oral: Moist Mucosa Neck: Supple, No JVD, Negative Carotid Bruits Lungs: Clear to auscultation, Normal air movement Cardiovascular: Regular rate, Regular Rhythm, Normal S1, Normal S2, No murmurs Abdomen: Bowel Sounds Present, Soft, Non Tender, Non-Distended Extremities: No clubbing, No cyanosis, No edema, Capillary Refill Less than 3 Seconds Skin: No rashes, No breakdown Musculoskeletal: No Tenderness to Palpation of Joints or Extremities Neurological: Cranial nerves II-XII grossly intact, Neuro grossly intact Psych/Mental Status: Normal Affect, Appropriate Patient seen and examined prior to discharge. Physical assessment as noted above. Patient is stable for discharge with follow up recommendations as noted above. This patient was seen by ZAMZAM More under the supervision of Dr. Cope. - Physical Exam Vitals/I&O's: Vital Signs Temp Pulse Resp BP Pulse Ox 98.2 F 74 16 151/84 H 96 04/01/19 09:34 04/01/19 09:34 04/01/19 09:34 04/01/19 09:34 04/01/19 09:34 Oxygen Delivery Method Room Air Weight: 168 lb 6.4 oz Body Mass Index (BMI) 28.9 Orthostatic Vital Signs Start: 03/31/19 19:58 Freq: q24h Status: Active Protocol: Activity Type Activity Date Activity User E-Sign Co-Sign Detail Recorded Client Recorded Date Recorded By Document 04/01/19 06:08 PAL [id number] 04/01/19 06:18 PAL 04/01/19 06:08 Orthostatic Vitals Standing -Blood Pressure (90/60-120/80) 147/93 H -Extremity Use Left Arm -Pulse Rate (60-100) 88 Sitting -Blood Pressure (90/60-120/80) 166/98 H -Extremity Use Left Arm -Pulse Rate (60-100) 85 Lying -Blood Pressure (90/60-120/80) 140/78 H -Extremity Use Left Arm -Pulse Rate (60-100) 73 Intake and Output for Last 24 Hours 03/30/19 03/31/19 04/01/19 23:59 23:59 23:59 Intake Total 1752.91 / 1752.91 1816.66 / 1816.66 Output Total 800 / 800 650 / 650 Balance 952.91 / 952.91 1166.66 / 1166.66 Microbiology Past 72 Hours 03/31/19 15:25 Mucosa - Nose Influenza Types A,B Direct FA ([facility]) - Final Laboratory Results 03/31/19 14:26: WBC 4.5, RBC 4.10 L, Hgb 11.8 L, Hct 35.2 L, MCV 85.9, MCH 28.8, MCHC 33.5, RDW Std Deviation 39.2, RDW Coeff of Smiley 12.6, Plt Count 122 L, MPV 11.6, Immature Gran % (Auto) 0.200, Neut % (Auto) 73.4 H, Lymph % (Auto) 10.8 L, [place] % (Auto) 11.9 H, Eos % (Auto) 3.5, Baso % (Auto) 0.2, Absolute Neuts (auto) 3.3, Absolute Lymphs (auto) 0.49 L, Nucleated RBC % 0, Differential Comment SCANNED 03/31/19 14:26: Sodium 142, Potassium 2.3 L*, Chloride 116 H, Carbon Dioxide 20.0 L, Anion Gap 6, BUN 15, Creatinine 0.53 L, Estim Creat Clear Calc 43.91, Est GFR (MDRD) Af Amer 146, Est GFR (MDRD) Non-Af 121, BUN/Creatinine Ratio 28.4 H, Glucose 118 H, Calcium 5.8 L*, Troponin I 0.019 03/31/19 14:26: Magnesium 1.4 L 03/31/19 14:26: Phosphorus 1.8 L, Iron 21 L, TIBC 179 L, Iron Saturation 11.7 L, Ferritin 647 H, Folate 26.50, TSH 2.09 03/31/19 14:26: PTH Intact 16.9 L 03/31/19 14:26: Vitamin B12 487 03/31/19 15:26: Lactic Acid 1.2 03/31/19 15:35: Urine Color Yellow, Urine Clarity Sl. Cloudy, Urine pH 6.5, Ur Specific [place] 1.015, Urine Protein 30 H, Urine Glucose (UA) Normal, Urine Ketones Negative, Urine Occult Blood 25 H, Urine Nitrite Negative, Urine Bilirubin Negative, Urine Urobilinogen 1 H, Ur Leukocyte Esterase 25 H, Urine RBC 0-5 SEEN, Urine WBC 5-10 SEEN, Ur Squamous Epith Cells 0-5 SEEN, Urine Bacteria 2+, Urine Mucus 0 SEEN 03/31/19 15:55: Ionized Calcium Pending 03/31/19 15:55: Vit D 1,25-Dihydroxy Pending 03/31/19 19:05: Troponin I < 0.015 03/31/19 20:00: Sodium 138, Potassium 3.8, Chloride 109 H, Carbon Dioxide 25.0, Anion Gap 4 L, BUN 17, Creatinine 0.85, Estim Creat Clear Calc 51.66, Est GFR (MDRD) Af Amer 85, Est GFR (MDRD) Non-Af 70, BUN/Creatinine Ratio 20.1 H, Glucose 155 H, Calcium 9.1 03/31/19 21:32: Troponin I < 0.015 04/01/19 00:48: Troponin I < 0.015 04/01/19 05:55: WBC 4.6, RBC 3.85 L, Hgb 11.0 L, Hct 32.6 L, MCV 84.7, MCH 28.6, MCHC 33.7, RDW Std Deviation 40.2, RDW Coeff of Smiley 13.0, Plt Count 130 L, MPV 11.2, Immature Gran % (Auto) 0.400, Neut % (Auto) 65.4, Lymph % (Auto) 14.5 L, [place] % (Auto) 14.7 H, Eos % (Auto) 4.8, Baso % (Auto) 0.2, Absolute Neuts (auto) 3.0, Absolute Lymphs (auto) 0.66 L, Nucleated RBC % 0 04/01/19 05:55: Sodium 139, Potassium 3.6, Chloride 110 H, Carbon Dioxide 25.0, Anion Gap 4 L, BUN 11, Creatinine 0.65, Estim Creat Clear Calc 43.91, Est GFR (MDRD) Af Amer 114, Est GFR (MDRD) Non-Af 95, BUN/Creatinine Ratio 16.8, Glucose 99, Calcium 8.0 L, Magnesium 2.2, Total Bilirubin 0.40, AST 37, ALT 70 H, Alkaline Phosphatase 74, Total Protein 5.4 L, Albumin 2.4 L, Globulin 3.0, Albumin/Globulin Ratio 0.8 L Current Medications Acetaminophen (Tylenol) 650 mg PO Q6H PRN PRN PRN Reason: Pain Score 1-3/Temp > 100.7 F Al Hydroxide/Mg Hydroxide (Mylanta Ii) 30 ml PO Q6H PRN PRN PRN Reason: Gastric Burning Albuterol Sulfate (Ventolin Aerosols) 2.5 mg INHALATION Q2H PRN PRN PRN Reason: SOB/Wheezing Anastrozole (Arimidex) 1 mg PO DAILY [facility] Last Admin: 04/01/19 09:44 Dose: 1 mg Documented by: Calcium Carbonate (Os-Rony 500) 500 mg PO DAILY@1200 [facility] Cholecalciferol (Vitamin D) 1,000 unit PO DAILY [facility] Last Admin: 04/01/19 09:44 Dose: 1,000 unit Documented by: Enoxaparin Sodium (Lovenox) 40 mg SC DAILY [facility] Last Admin: 04/01/19 09:44 Dose: 40 mg Documented by: Glucagon () 1 mg IM .X1 PRN PRN Reason: Hypoglycemia Guaifenesin (Robitussin) 20 ml PO Q4H PRN PRN PRN Reason: COUGH Hydralazine HCl (Apresoline Iv) 10 mg IV Q4H PRN PRN PRN Reason: SBP > 160 Sodium Chloride () 1,000 mls @ 100 mls/hr IV .Q10H [facility] Last Infusion: 04/01/19 09:45 Dose: 0 mls/hr Documented by: Dextrose (Dextrose 10%-Water) 250 mls @ 999 mls/hr IV .Q16M PRN; Protocol PRN Reason: HYPOGLYCEMIA Magnesium Hydroxide (Milk Of Magnesia) 30 ml PO DAILY PRN PRN PRN Reason: Constipation Melatonin (Melatonin) 3 mg PO QHS PRN PRN PRN Reason: INSOMNIA Multivitamins/Minerals (Multivitamin With Minerals) 1 tablet PO DAILY@0800 [facility] Last Admin: 04/01/19 09:44 Dose: 1 tablet Documented by: Nitroglycerin (Nitrostat) 0.4 mg SUBLINGUAL Q5M PRN PRN Reason: CARDIAC/CHEST PAIN Ondansetron HCl (Zofran) 4 mg IV Q8H PRN PRN PRN Reason: NAUSEA/VOMITING Prochlorperazine Edisylate (Compazine Iv) 5 mg IV Q4H PRN PRN PRN Reason: Breakthrough Nausea/Vomiting Sodium Chloride () 10 - 40 ml IV UD PRN PRN Reason: SALINE FLUSH Throat Lozenges (Cepacol Sore Throat Lozenge) 1 lozenge MUCOUS MEM Q2H PRN PRN PRN Reason: Sore Throat/Cough Discharge Diet: No Restrictions Discharge Activity: Return to Normal Activity Call your doctor if you observe: Shortness of breath, Dizziness, Fainting spells, Chest pain Home Medications: Medications to take at Discharge Aspirin E.C. [Ecotrin] 81 mg PO DAILY 01/16/13 Multivitamins,Ther W-Minerals [Multivitamin With Minerals] 1 tab PO DAILY 01/16/13 calcium citrate 200 mg (950 mg) tablet 200 mg PO DAILY tab 09/07/17 irbesartan 150 mg tablet 150 mg PO BID 09/07/17 Anastrozole [Arimidex] 1 mg PO DAILY 09/09/17 Carvedilol 12.5 mg PO BID 03/31/19 Cholecalciferol (VIT D3) [Vitamin D3] 1,000 unit PO DAILY 03/31/19 Amlodipine [Norvasc] 5 mg PO DAILY #30 tab 04/01/19 Ferrous Sulfate 325 mg PO BID #60 tab 04/01/19 Following Prescrptions Were Given to Patient: Ferrous Sulfate 325 mg PO BID #60 tab Transmission Status: Received by [facility]acy [facility][id number] Amlodipine [Norvasc] 5 mg PO DAILY #30 tab Transmission Status: Pending to [id number] Primary Care Physician: Juvencio Velazquez MD [Primary Care Provider] - Please follow up with your Primary Care Physician in: 3-5 Days Disposition: Home Minutes spent on discharge:: 35 Patient Condition:: Stable Medical Necessity - Tobacco Use Smoking Status: Never smoker Meaningful Use Info Meaningful Use Diagnoses (Choose all that apply): None applicable
[2019-04-01] MEDS: Calcium (Elemental) 500 MG Tablet PO (11:45)
[2019-04-01] MEDS: Mag Hydrox/Al Hydrox/Simeth 30 ML UDC PO (15:29)
--- NOTE | 2019-04-03 14:41 | CASEMGMT ---
KAMILA WHITAKER DC PHONE CALL DC DATE: 04.01.2019 DC Disposition: Home Diagnosis on Discharge: Syncopal event LACE/STRATA: 11/01 Intro role of CM to patient via phone. Pt states she understands her instructions. F/U appts were not made, but pt states she will make appts this afternoon. No concerns at this time, pt states she is feeling better. No care improvement suggestions were given, and pt states her care @ [facility] was very good. KAMILA WHITAKER thanked pt for using [facility]. Himanshu GUZMANN VENICE CM
== END 2019-04-01 16:57 | disposition home or self-care (01) | DRG 642 ==
LOC: ED 14:44 → PCU 17:01
PROVIDERS: Admitting Provider Family Medicine; Emergency Provider Emergency Medicine; PCP Family Medicine; Visit Provider Family Medicine
DX: E83.39 Other disorders of phosphorus metabolism (principal); E87.6 Hypokalemia; E83.42 Hypomagnesemia; E83.51 Hypocalcemia; I95.2 Hypotension due to drugs; T46.5X5A Adverse effect of other antihypertensive drugs, initial encounter; T46.3X5A Adverse effect of coronary vasodilators, initial encounter; Y92.000 Kitchen of unspecified non-institutional (private) residence as the place of occurrence of the external cause; R55 Syncope and collapse; D50.9 Iron deficiency anemia, unspecified; I77.819 Aortic ectasia, unspecified site; I34.0 Nonrheumatic mitral (valve) insufficiency; I35.1 Nonrheumatic aortic (valve) insufficiency; I37.1 Nonrheumatic pulmonary valve insufficiency; I10 Essential (primary) hypertension; C50.912 Malignant neoplasm of unspecified site of left female breast; M79.7 Fibromyalgia; K82.4 Cholesterolosis of gallbladder; K82.8 Other specified diseases of gallbladder; R94.6 Abnormal results of thyroid function studies; Z79.82 Long term (current) use of aspirin; Z79.811 Long term (current) use of aromatase inhibitors; Z79.899 Other long term (current) drug therapy
CPT/HCPCS: 36415; 71046; 80048; 80053; 81001; 82330; 82607; 82652; 82728; 82746; 83540; 83550; 83605; 83735; 83970; 84100; 84443; 84484; 85025; 87804; 93005; 93306; 97802; 99251; 99285; J1756; J7030; J7040; J7050; A4216; G0463; J0610

== ENCOUNTER → 2019-04-10 16:31 | Outpatient (CLI) | payer MEDICARE, OTHER, SELFPAY ==
[2019-03-31 17:42] VITALS: BMI 28.9
[2019-04-10 18:40] LABS: Anion Gap 6 (5-15); BUN 19 mg/dL (7-18); BUN/Creat Ratio 23.5 RATIO (10-20); Calcium,Total 10.1 mg/dL (8.5-10.1); Chloride 104 mmol/L (98-107); Creatinine, Serum 0.81 mg/dL (0.55-1.02); EST Glomerular Filtration Rate 74 mL/min (>60); Est Glom Filt Rate - Afr Amer 89 mL/min (>60); Glucose 103 mg/dL (74-106); Magnesium 2.6 mg/dL (1.6-2.6); Sodium Level 137 mmol/L (136-145)
== END ==
PROVIDERS: PCP Family Medicine; Referring Provider Nurse Practitioner Adult Health; Visit Provider Nurse Practitioner Adult Health
DX: E87.6 Hypokalemia (principal); E83.42 Hypomagnesemia
CPT/HCPCS: 36415; 80048; 83735

== ENCOUNTER → 2019-05-15 13:40 | Outpatient (CLI) | payer MEDICARE, OTHER, SELFPAY ==
[2019-05-11 16:09] VITALS: BMI 28.7
--- NOTE | 2019-05-15 13:41 | CT_ITS ---
STUDY: CT CHEST WITH CONTRAST REASON FOR EXAM: Female, 73 years old. THORACIC ANEURYSM, AORTIC ROOT DIGITATION RADIATION DOSAGE (If Supplied By Facility): CTDIvol = ( 12.21 ) mGy, DLP = ( 465.25 ) mGycm TECHNIQUE: Transaxial imaging was performed following intravenous administration of IV 100mL Isovue-300. Multiplanar coronal and sagittal images were reformatted. Individualized dose optimization techniques were used for this CT. COMPARISON: Comparison is made with prior CT scan of the thorax dated October 10, 2012. FINDINGS: Stable 3 mm noncalcified nodule in the peripheral lateral aspect of the right upper lobe as seen on axial image #48. There is no demonstrated pleural abnormality. There are calcifications of the coronary arteries. There are multiple small lymph nodes within the mediastinum, which are normal in size and morphology most compatible with reactive lymph hyperplasia. Normal hilar regions. Normal enhanced pulmonary arteries. There is aneurysmal dilatation of the ascending thoracic aorta with a transverse dimension of 4.6 cm. There are degenerative changes of the thoracic spine. Diffuse fatty infiltration of the liver. Multiple hepatic cysts are seen. The largest measures 7.7 cm x 6.1 cm. This is in the inferior aspect of the right lobe of the liver. This has increased in size as compared to prior study. The patient is status post cholecystectomy. CT/Chest WITH Contrast IMPRESSION: Aneurysmal dilatation of the ascending thoracic aorta. This measures 4.6 cm. Multiple hepatic cysts. Hiatal hernia. Electronically Signed: Carlos Manuel Jamison, at 14:59 EDT , Service support ,
== END ==
PROVIDERS: PCP Family Medicine; Referring Provider Internal Medicine Cardiovascular Disease; Visit Provider Internal Medicine Cardiovascular Disease
DX: I77.810 Thoracic aortic ectasia (principal); I10 Essential (primary) hypertension; I38 Endocarditis, valve unspecified; R55 Syncope and collapse
CPT/HCPCS: 71260; Q9967

== ENCOUNTER → 2019-05-19 07:35 | Outpatient (CLI) | payer MEDICARE, OTHER, SELFPAY ==
[2019-05-11 16:09] VITALS: BMI 28.7
--- NOTE | 2019-05-19 07:36 | RDU_ITS ---
Reason For Study: HTN Right Renal Artery Left Renal Artery Right renal artery ostium 72.4/24.2 Left renal artery ostium 84.6/29.4 RSV/EDV. PSV/EDV. Right renal artery proximal 89.2/40 Left renal artery proximal PSV/EDV PSV/EDV. 68.7/26.9 . Right renal artery mid 94.8/38.2 Left renal artery mid 72.3/26.9 PSV/EDV. PSV/EDV . Right renal artery distal 106.4/34 Left renal artery distal 74/28 PSV/EDV. PSV/EDV. Right RAR 1.77. Left RAR 1.41. Right Renal Parenchyma Left Renal Parenchyma Upper Pole Medula 26.3/8.2 PSV/EDV. Left upper pole medulla 24.7/8.2 Right upper pole medulla EDR 0.31 . PSV/EDV . Right upper pole medulla R.I. Left upper pole medulla EDR 0.33 . 0.69 . Left upper pole medulla R.I. 0.67 . Upper Guy Cortx 21.4/8.2 PSV/EDV. UP Cortex 20.8/7.1 PSV/EDV. Right upper pole cortex EDR 0.38 . Left upper pole cortex EDR 0.34 . Right upper pole cortex R.I. 0.62 . Left upper pole cortex R.I. 0.66 . Right lower Pole medulla 21.9/8.7 Left lower Pole medulla 21.4/8.2 PSV/EDV . PSV/EDV . Right lower pole medulla EDR 0.38 . Left lower pole medulla EDR 0.38 . Right lower pole medulla R.I. Left lower pole medulla R.I. 0.62 . 0.60 . Lower Pole Cortx 17/8.2 PSV/EDV. Lower Pole Cortex 18.6/8.2 PSV/EDV. Left lower pole cortex EDR 0.48 . Right lower pole cortex EDR 0.44 . Left lower pole cortex R.I. 0.52 . Right lower pole cortex R.I. 0.56 . Left Renal Hilar Right Renal Hilar LT Hilar avg 40.1/12.7 PSV/EDV . Right Hilar avg 36.8/15.3 PSV/EDV. Left hilar acceleration time 40 Right hilar acceleration time 40 m/sec. m/sec. Left Renal Dimensions Right Renal Dimensions Left kidney size 10.54 cm . Right kidney size 11.11 cm . Left cortical dimension 1.39 cm . Right cortical dimension 1.51 cm . Aorta Proximal abdominal aorta 1.60 x 1.60 cm . Proximal abdominal aorta peak systolic velocity is 60 cm/sec . Distal abdominal aorta 1.45 x 1.42 cm . Distal abdominal aorta peak systolic velocity is 73.2 cm/sec . Interpretation Summary Bilateral no significant renal artery stenosis with bilateral <60%. Ordering Physician: Geo Medina Referring Physician: Juvencio Velazquez Performed By: Chelsey High RVT
== END ==
PROVIDERS: PCP Family Medicine; Referring Provider Internal Medicine Cardiovascular Disease; Visit Provider Internal Medicine Cardiovascular Disease
DX: I77.810 Thoracic aortic ectasia (principal); I10 Essential (primary) hypertension; I38 Endocarditis, valve unspecified; R55 Syncope and collapse
CPT/HCPCS: 93975

== ENCOUNTER → 2020-02-08 12:28 | Outpatient (CLI) | payer MEDICARE, OTHER, SELFPAY ==
[2019-12-22 14:50] VITALS: BMI 27.8
--- NOTE | 2020-02-08 12:30 | BI_ITS ---
MAMMOGRAPHY - BILATERAL SCREENING REASON FOR EXAM: Female, 74 years old. Routine annual screening examination. PERTINENT HISTORY: Personal history of breast cancer. Prior left lumpectomy and stereotactic biopsy. Prior right breast reduction. Grandmother with breast cancer. TECHNIQUE: Digital bilateral breast lola (3D mammographic acquisition) in the CC and MLO projections. 2-D mediolateral oblique (MLO) and craniocaudad (CC) views of both breasts were obtained. CAD: Full Field Digital Mammography with Computer Added Detection was performed. COMPARISON: Comparison is made with prior study dated 06/23/2018 and 03/05/2017. FINDINGS: Breast Composition: The breasts are heterogeneously dense, which may obscure small masses. There are no dominant masses or suspicious calcifications. Stable 1.2 cm x 1.2 cm densely calcified nodule in the deep mid medial portion of the left breast. Once again, there are 2 tissue markers in the inferior aspect of the left breast. No other significant abnormalities are identified. There has been no significant change since the prior study. BI/SCREEN MAMM (CAD) W/LOLA BILAT IMPRESSION: Stable bilateral screening mammogram. Yearly follow-up mammogram recommended. (A) ASSESSMENT CATEGORY: BIRADS Category 2: Benign. A letter regarding these results will be sent to the patient by the facility within 30 days. Approximately 10% of breast cancers are not detected by mammography. A normal mammogram should not delay biopsy of a clinically suspicious abnormality. [id number] Electronically Signed: Carlos Manuel Jamison, at 14:06 EST , Service support ,
--- NOTE | 2020-02-08 12:30 | BD_ITS ---
STUDY: DUAL ENERGY X-RAY ABSORPTIOMETRY / DXA REASON FOR EXAM: Female, 74 years old. Age of surgical ulices 39. Pat is 160.2# and 62.25 and quot; a loss of 1.75 and quot; per pat. Hx of taking Evista and Foxamax. Takes Arimidex for hx of breast CA with a lumpectomy. Takes 1200 mg of Calcium and a multi-vit. Exercises a little. Mother has osteo. Hx of a rib fx. TECHNIQUE: Bone Mineral Density (BMD) measurements of lumbar spine and bilateral hips were obtained. COMPARISON: Comparison is made with prior study dated 01/02/2016. FINDINGS: Lumbar Spine (L1-L4): g/cm2 (0.961) / T-score (-2.0) / Z-score (-0.3) Findings are suggestive of osteopenia with a moderate fracture risk. Increased kyphosis. Left Femur Total: g/cm2 (0.805) / T-score (-1.6) / Z-score (0.0) Left Femoral Neck: g/cm2 (0.730) / T-score (-2.2) / Z-score (-0.4) Right Femur Total: g/cm2 (0.757) / T-score (-2.0) / Z-score (-0.3) Right Femoral Neck: g/cm2 (0.709) / T-score (-2.4) / Z-score (-0.5) The T-Scores on the most recent prior examination were: Lumbar Spine (L1-L4): There has been improvement of bone density since the previous examination. Left Femur Total: which represents a worsening of 6.5%. Right Femur Total: which represents a worsening of 5.1%. BD/Dexa Bone Density Study IMPRESSION: The patient is considered osteopenic as outlined below according to World Rashi Organization (WHO) criteria with a high fracture risk. There has been worsening of bone density since the previous examination. Reference Information: The T-score is the number of standard deviations above or below the standard which is normal for young adults at their peak bone mineral density. The World Health Organization (WHO) interprets the T-scores as follows: Above -1 Normal bone density Between -1 and -2.5 Osteopenia Equal to / or below -2.5 Osteoporosis As a practical clinical guideline, osteopenia may be graded as follows: Mild -1 through -1.5 Moderate -1.6 through -2.0 Severe -2.1 through -2.4 The Z-score is the number of standard deviations above or below age-matched controls. A Z-score of less than -1.5 would be considered abnormal. References: 1. NIH Osteoporosis and Related Bone Diseases www osteo.org 2. International Society for Clinical Densitometry www iscd.org 3. National Osteoporosis Foundation www nof.org Electronically Signed: Carlos Manuel Jamison, at 14:23 EST , Service support ,
== END ==
PROVIDERS: PCP Family Medicine; Referring Provider Family Medicine; Visit Provider Family Medicine
DX: Z78.0 Asymptomatic menopausal state (principal); Z12.31 Encounter for screening mammogram for malignant neoplasm of breast; Z85.3 Personal history of malignant neoplasm of breast
CPT/HCPCS: 77063; 77067; 77080

== ENCOUNTER → 2020-05-16 12:49 | Outpatient (CLI) | payer MEDICARE, OTHER, SELFPAY ==
[2019-12-22 14:50] VITALS: BMI 27.8
--- NOTE | 2020-05-16 12:51 | CT_ITS ---
STUDY: CT CHEST WITH CONTRAST REASON FOR EXAM: Female, 74 years old. TAA monitoring. Follow-up for thoracic aortic aneurysm. History of left-sided breast cancer and prior lumpectomy. RADIATION DOSAGE (If Supplied By Facility): CTDIvol = ( 12.9 ) mGy, DLP = ( 341.06 ) mGycm TECHNIQUE: Transaxial imaging was performed following intravenous administration of IV 100mL Isovue-300. Multiplanar coronal and sagittal images were reformatted. Individualized dose optimization techniques were used for this CT. COMPARISON: Comparison is made with prior study dated 05/15/2019. FINDINGS: Mild heterogeneous appearance of the posterior aspect of the lower pole of the left lobe of the thyroid. Stable 3 mm noncalcified nodule in the lateral aspect of the right upper lobe as seen on axial image #52. There is no demonstrated pleural abnormality. There are calcifications of the coronary arteries. There are multiple small lymph nodes within the mediastinum, which are normal in size and morphology most compatible with reactive lymph hyperplasia. Normal hilar regions. Normal enhanced pulmonary arteries. Stable dilatation of the root of the ascending thoracic aorta with a transverse dimension of 45 mm. There are multi-level degenerative changes of the thoracic spine. Diffuse fatty infiltration of the liver. Stable hepatic cysts. The largest measures 7.5 cm x 6.1 cm. Small hiatal hernia. CT/Chest WITH Contrast IMPRESSION: Stable examination. Electronically Signed: Carlos Manuel Jamison MD at 13:47 EDT , Service support ,
== END ==
PROVIDERS: PCP Family Medicine; Referring Provider Physician Assistant Medical; Visit Provider Physician Assistant Medical
DX: I77.810 Thoracic aortic ectasia (principal)
CPT/HCPCS: 71260; Q9967

== ENCOUNTER 2021-06-03 07:43 | Outpatient (CLI) | payer MEDICARE, OTHER, SELFPAY ==
--- NOTE | 2021-06-03 07:53 | CT_ITS ---
STUDY: CT CHEST WITH CONTRAST REASON FOR EXAM: Female, 76 years old. Aortic root dilatation RADIATION DOSAGE (If Supplied By Facility): CTDIvol = ( 8.16 ) mGy, DLP = ( 269.6 ) mGycm TECHNIQUE: Transaxial imaging was performed following intravenous administration of IV 100mL Isovue-300. Multiplanar coronal and sagittal images were reformatted. Individualized dose optimization techniques were used for this CT. COMPARISON: Comparison is made with prior examination of 05/16/2020. FINDINGS: Mild heterogeneity of the left lobe of the thyroid gland. Mild degree of emphysematous changes. Stable 3 mm noncalcified nodule in the lateral aspect of the right upper lobe as seen on image #50. There is no demonstrated pleural abnormality. There are calcifications of the coronary arteries. Normal mediastinum. Normal hilar regions. Normal enhanced pulmonary arteries. Dilatation of the ascending thoracic aorta. Transverse dimension measuring 4.61 cm. There are multi-level degenerative changes of the thoracic spine. Stable hepatic cysts. The largest cyst is in the inferior aspect of the right dome of the liver and measures 7.8 cm x 6.[address]/Chest WITH Contrast IMPRESSION: Dilatation of the root of the ascending thoracic aorta with a transverse dimension of 4.61 cm. Electronically Signed: Carlos Manuel Jamison MD at 14:25 EDT ,
[2021-06-03 08:05] LABS: CREATININE FINGERSTICK < 0.6 mg/dL (0.55-1.02); EGFR FINGERSTICK > 60.0000 mL/min (>60)
== END 2021-06-03 23:59 | disposition home or self-care (01) ==
PROVIDERS: PCP Family Medicine; Referring Provider Internal Medicine Cardiovascular Disease; Visit Provider Internal Medicine Cardiovascular Disease
DX: I10 Essential (primary) hypertension (principal); I77.810 Thoracic aortic ectasia
CPT/HCPCS: 71260; Q9967

== ENCOUNTER 2021-06-05 08:11 | Outpatient (CLI) | payer MEDICARE, OTHER, SELFPAY ==
--- NOTE | 2021-06-05 08:16 | BI_ITS ---
MAMMOGRAPHY - BILATERAL SCREENING REASON FOR EXAM: Female, 76 years old. Routine annual screening examination. PERTINENT HISTORY: Personal history of breast cancer. Prior left lumpectomy with radiation treatment. Grandmother with breast cancer. TECHNIQUE: Digital bilateral breast lola (3D mammographic acquisition) in the CC and MLO projections. 2-D mediolateral oblique (MLO) and craniocaudad (CC) views of both breasts were obtained. CAD: Full Field Digital Mammography with Computer Added Detection was performed. COMPARISON: Comparison is made with prior examination of 02/08/2020 and 06/23/2018. FINDINGS: Breast Composition: The breasts are heterogeneously dense, which may obscure small masses. 2 tissue markers are seen within calcifications in the inferior central portion of the left breast. There has been no change. There is evidence of a 1.1 cm densely calcified nodule in the deep inferior medial portion of the left breast. There has been no change. No other significant abnormalities are identified. There has been no significant change since the prior study. BI/SCRN MAMM (CAD)W/LOLA BILAT IMPRESSION: Stable bilateral screening mammogram. Yearly follow-up mammogram recommended. (A) ASSESSMENT CATEGORY: BIRADS Category 2: Benign. A letter regarding these results will be sent to the patient by the facility within 30 days. Approximately 10% of breast cancers are not detected by mammography. A normal mammogram should not delay biopsy of a clinically suspicious abnormality. [id number] Electronically Signed: Carlos Manuel Jamison MD at 9:04 EDT ,
== END 2021-06-05 23:59 | disposition home or self-care (01) ==
LOC: OPBI 08:13
PROVIDERS: PCP Family Medicine; Referring Provider Family Medicine; Visit Provider Family Medicine
DX: Z12.31 Encounter for screening mammogram for malignant neoplasm of breast (principal); Z85.3 Personal history of malignant neoplasm of breast; Z80.3 Family history of malignant neoplasm of breast
CPT/HCPCS: 77063; 77067

== ENCOUNTER → 2021-09-04 | Outpatient (CLI) | payer MEDICARE, OTHER, SELFPAY ==
--- NOTE | 2021-09-04 12:59 | ECHOD_ITS ---
Reason For Study: MURMUR Procedure This was a 2D Doppler, Color Flow transthoracic echocardiogram. The study was technically difficult. Exam performed in department. Left Ventricle Normal LV size. Left ventricular systolic function is normal. The estimated ejection fraction is 60 %. No evidence for diastolic dysfunction. No regional wall motion abnormalities noted. Right Ventricle Normal RV size. Normal systolic function. Atria The left atrium is mildly enlarged. Normal right atrium. No doppler evidence for ASD. Mitral Valve There is no mitral annular calcification. Normal mitral valve. Mild-Moderate (1-2+) mitral valve insufficiency. Tricuspid Valve Normal tricuspid valve. Mild to moderate (1-2+) tricuspid valve insufficiency. Right ventricular systolic pressure estimated to be 28 mmHg. Aortic Valve Trisinus/trileaflet aortic valve. Normal aortic valve. Trivial aortic valve insufficiency. Pulmonic Valve The pulmonic valve is not well visualized. Great Vessels Mild to moderately dilated aortic root. Pericardium/Pleural No pericardial effusion. MMode/2D Measurements & Calculations LVIDd: 3.8 cm IVSd: 0.94 cm Ao root diam: 3.8 cm LVIDs: 2.6 cm LVPWd: 1.0 cm RVDd: 3.5 cm FS: 32.0 % LAV(MOD-bp): 52.3 ml LVAd ap4: 29.1 cm2 SV(MOD-sp4): 53.4 ml LAV(MOD-bp) Indexed: 29.4 ml/m2 LVLd ap4: 7.7 cm LAV(MOD-sp2): 53.0 ml EDV(MOD-sp4): 90.8 ml LAV(MOD-sp4): 48.0 ml EDV(sp4-el): 93.9 ml LVAs ap4: 16.9 cm2 LVLs ap4: 6.5 cm ESV(MOD-sp4): 37.4 ml ESV(sp4-el): 37.0 ml EF(MOD-sp4): 58.8 % EF(sp4-el): 60.5 % SV(sp4-el): 56.8 ml LA A4 area: 17.0 cm2 LA dimension(2D): 3.6 cm RA A4 area: 15.7 cm2 Time Measurements MV dec time: 0.19 sec Doppler Measurements & Calculations MV E max dandre: 41.6 cm/sec Lat Peak E' Dandre: 3.4 cm/sec Med Peak E' Dandre: 3.2 cm/sec MV A max dandre: 90.3 cm/sec E/E' lat: 12.1 E/E' med: 13.1 MV E/A: 0.46 Ao V2 max: 134.6 cm/sec AI max dandre: 458.4 cm/sec LV V1 max: 117.1 cm/sec Ao max P.2 mmHg AI max P.0 mmHg LV V1 max P.5 mmHg AI dec slope: 286.9 cm/sec2 AI P1/2t: 467.9 msec PA V2 max: 94.1 cm/sec TR max dandre: 249.4 cm/sec TR max P.0 mmHg ECHO/Echo Complete Interpretation Summary The study was technically difficult. Left ventricular systolic function is normal. The estimated ejection fraction is 60 %. The left atrium is mildly enlarged. Mild-Moderate (1-2+) mitral valve insufficiency. Mild to moderate (1-2+) tricuspid valve insufficiency. Trivial aortic valve insufficiency. Mild to moderately dilated aortic root. Right ventricular systolic pressure estimated to be 28 mmHg. No evidence for diastolic dysfunction. Ordering Physician: Geo Medina Referring Physician: MIRTA KEY Performed By: Iliana Hernandez RDCS
== END | disposition home or self-care (01) ==
LOC: CVS 12:57
PROVIDERS: PCP Family Medicine; Referring Provider Internal Medicine Cardiovascular Disease; Visit Provider Internal Medicine Cardiovascular Disease
DX: R55 Syncope and collapse (principal); I77.810 Thoracic aortic ectasia; R01.1 Cardiac murmur, unspecified; I08.3 Combined rheumatic disorders of mitral, aortic and tricuspid valves; I10 Essential (primary) hypertension
CPT/HCPCS: 93306

== ENCOUNTER → 2023-01-14 | Outpatient (CLI) | payer MEDICARE, OTHER, SELFPAY ==
--- NOTE | 2023-01-14 10:00 | BI_ITS ---
MAMMOGRAPHY - BILATERAL SCREENING REASON FOR EXAM: Female, 77 years old. Routine annual screening examination. PERTINENT HISTORY: Personal history of breast cancer. Prior left lumpectomy with right breast reduction TECHNIQUE: Digital bilateral breast lola (3D mammographic acquisition) in the CC and MLO projections. 2-D mediolateral oblique (MLO) and craniocaudad (CC) views of both breasts were obtained. CAD: Full Field Digital Mammography with Computer Added Detection was performed. COMPARISON: Comparison is made with prior study dated June 05, 2021 and February 08, 2020. FINDINGS: Breast Composition: The breasts are heterogeneously dense, which may obscure small masses. There are no dominant masses or suspicious calcifications. The patient is status post lumpectomy in the inferior central portion of the left breast. Stable densely calcified nodule in the inferior medial aspect of the left breast. No other significant abnormalities are identified. There has been no significant change since the prior study. BI/SCRN MAMM (CAD)W/LOLA BILAT IMPRESSION: Stable bilateral screening mammogram. Yearly follow-up mammogram recommended. (A) ASSESSMENT CATEGORY: BIRADS Category 2: Benign. A letter regarding these results will be sent to the patient by the facility within 30 days. Approximately 10% of breast cancers are not detected by mammography. A normal mammogram should not delay biopsy of a clinically suspicious abnormality. [id number] Electronically Signed: Carlos Manuel Jamison MD at 11:11 EST ,
== END | disposition home or self-care (01) ==
LOC: OPBI 09:59
PROVIDERS: PCP Family Medicine; Referring Provider Nurse Practitioner Family; Visit Provider Nurse Practitioner Family
DX: Z12.31 Encounter for screening mammogram for malignant neoplasm of breast (principal)
CPT/HCPCS: 77063; 77067

== ENCOUNTER → 2024-04-18 | Outpatient (CLI) | payer MEDICARE, OTHER, SELFPAY ==
--- NOTE | 2024-04-18 13:18 | BI_ITS ---
PROCEDURE: SCRN MAMM (CAD)W/LOLA BILAT REASON FOR EXAM: F, Age 78 y/o, personal history of breast cancer. Prior left stereotactic breast biopsy and left lumpectomy with radiation. Bilateral breast reduction surgery. TECHNIQUE: Bilateral screening digital breast tomosynthesis with 2D and 3D images. Computer aided detection. COMPARISON: Prior exam(s) dating back to January 14, 2023.. FINDINGS: The breasts are heterogeneously dense which may obscure small masses. The patient is status post lumpectomy in the central portion of the right breast with resultant postoperative deformity and dystrophic calcification. No suspicious masses, areas of developing architectural distortion, or suspicious calcifications. Stable examination. BI/SCRN MAMM (CAD)W/LOLA BILAT IMPRESSION: BI-RADS 2: BENIGN. RECOMMEND ANNUAL MAMMOGRAPHIC SCREENING. Follow-up code: Routine Follow-up The patient will be notified of the results by letter. Reading Location: [place] [id number]
--- NOTE | 2024-04-18 13:22 | BD_ITS ---
EXAM: CLINICAL INDICATION: Determine bone density. CLINICAL HISTORY: Postmenopausal COMPARISON: 02/05/2015. TECHNIQUE: Bone densitometry of the lumbar spine and hips was performed using the HOLOGIC DEXA scanner. FINDINGS: Bone Density Measurements: SPINE AP Spine (L1-L4): 0.785 g/cm2 T-Score: -2.7 Z-Score: 0.0 WHO Classification: OSTEOPOROSIS There is -7.0 % change since the prior examination of 02/08/2020 LEFT FEMUR Femoral TOTAL (LEFT): 0.714 g/cm2 T-Score: -1.9 Z-Score: 0.0 WHO Classification: OSTEOPENIA Femoral NECK (LEFT): 0.558 g/cm2 T-Score: -2.6 Z-Score: -0.4 WHO Classification: OSTEOPOROSIS There is -4.2 % change since the prior examination of 02/08/2020 RIGHT FEMUR Femoral TOTAL (RIGHT): 0.684 g/cm2 T-Score: -2.1 Z-Score: -0.2 WHO Classification: OSTEOPENIA Femoral NECK (RIGHT): 0.532 g/cm2 T-Score: -2.9 Z-Score: -0.7 WHO Classification: Osteoporosis There is -2.0 % change since the prior examination of 02/08/2020 BD/Dexa Bone Density Study IMPRESSION: Osteoporosis World Health Organization criteria for BMD interpretation classify patients as: Normal (T-score at or above -1.0), Osteopenic (T-score between -1.0 and -2.5),or Osteoporotic (T-score at or below -2.5). The presence of vertebral abnormalities such as scoliosis or osteophytes, or ao rtic/ligamentous calcifications can alter readings of the lumbar spine. In such cases, readings of the hips are more reliable. Reading Location: [facility]
== END | disposition home or self-care (01) ==
LOC: OPBD 13:17
PROVIDERS: PCP Family Medicine; Referring Provider Family Medicine; Visit Provider Family Medicine
DX: Z12.31 Encounter for screening mammogram for malignant neoplasm of breast (principal); Z78.0 Asymptomatic menopausal state
CPT/HCPCS: 77063; 77067; 77080

== ENCOUNTER → 2025-01-23 | Outpatient (CLI) | payer MEDICARE, OTHER, SELFPAY ==
--- OUTSIDE RECORDS SUMMARY | 2025-01-23 08:35 | XMS RPT_ITS | CCD ---
Author Organization [facility] Care Team Providers [facility] Technician Name Role Phone Dr. Juvencio Velazquez Primary Care Provider Dr. Juvencio Velazquez Referring Provider Dr. Geo Medina Attending Provider [phone] Unavailable Primary Care Provider Unavailkrzysztof CHICAS Referring Unavailable CHRIS GUTIERREZ Attending Unavailable CHRIS GUTIERREZ Referring Unavailable JOSE ROCHA Attending Unavailable Unavailable Primary Care Provider UnavailJuvencio Chamorro Primary Care Unavailable Juvencio Velazquez Referring Unavailable Juvencio Velazquez Attending Unavailable Anjelica Raymundo Attending Unavailable Juvencio Velazquez Referring Unavailable Juvencio Velazquez Primary Care Unavailable JENNIFER VALLES Referring Unavailable BELTRAN, JENNIFER CARTER Attending Unavailable JENNIFER VALLES Referring Unavailable JENNIFER VALLES Referring Unavailable BELTRAN, JENNIFER CARTER Attending Unavailable JENNIFER VALLES Referring Unavailable Allergies Allergy Classification Reported Allergen(s) Allergy Type Date of Onset Reaction(s) Facility (17 sources) Adhesive agent; Translations: [ADHESIVE] Allergy to substance 0 Rash [facility] (3 sources) Aspartame Drug Allergy 1 MIGRAINE MORLEY [facility] (16 sources) carvedilol; Translations: [CARVEDILOL] Drug Allergy 1 Other: See Comments [facility] (4 sources) HYDROcodone; Translations: [hydrocodone bitartrate] Drug Allergy 1 NUMBNESS ON ONE SIDE OF BODY [facility] (17 sources) Shellfish; Translations: [SHELLFISH DERIVED] Allergy to substance 0 Angioedema [facility] (17 sources) Sulfonamides (Antibiotic); Translations: [SULFA (SULFONAMIDE ANTIBIOTICS)] Allergy to substance 5 Other: See Comments, Rash, Swelling [facility] (1 source) Aspartame Drug Allergy 4 [facility] (1 source) carvedilol Drug Allergy 4 [facility] Medications Current Medications Medication Drug Class(es) Dates Sig (Normalized) Sig (Original) amLODIPine 5 mg oral tablet (17 sources) Dihydropyridine Calcium Channel Romero Start: 04-01-2019 End: 01-31-2024 take 1 tablet by mouth once daily amLODIPine (NORVASC) 5 mg tablet Take 1 tablet by mouth once daily. 90 tablet 3 01/31/2024 Active Start: 01-16-2013 End: 09-07-2017 take 5 mg by mouth twice daily Amlodipine Discontinued 5 MG PO TWICE A DAY January 16, 2013 12:00am September 07, 2017 7:35am Comment on above: Take 5 mg by mouth o nce daily. anastrozole 1 mg oral tablet (13 sources) Aromatase Inhibitor Start: 8 take 1 tablet by mouth once daily anastrozole (ARIMIDEX) 1 mg tablet Take 1 mg by mouth once daily. 08/19/2022 Active Comment on above: Take 1 mg by mouth o nce daily. aspirin 81 mg delayed release oral tablet (13 sources) Platelet Aggregation Inhibitor, Nonsteroidal Anti-inflammatory Drug Start: 3 take 81 mg by mouth once daily Aspirin Active 81 MG PO DAILY January 16, 2013 12:00am Comment on above: Take 81 mg by mouth once daily. calcium citrate 950 mg oral tablet (3 sources) Start: 8 take 200 mg by mouth once daily Calcium Citrate Active 200 MG PO DAILY September 06, 2017 11:00pm doxazosin 4 mg oral tablet (20 sources) alpha-Adrenergic Romero Start: 4 take 1 tablet by mouth once daily doxazosin (CARDURA) 4 mg tablet Take 1 tablet by mouth once daily. 90 tablet 3 01/31/2024 Active Start: 06-01-2022 End: 01-31-2024 take 2 tablets by mouth once daily doxazosin (CARDURA) 2 mg tablet Take 4 mg by mouth once daily. 06/01/2022 01/31/2024 Discontinued Start: 06-23-2019 End: 05-31-2022 take 4 mg by mouth once daily Doxazosin Active 4 MG PO DAILY 180 May 31, 2022 7:53pm Start: 05-11-2019 End: 06-23-2019 take 1 tablet by mouth once daily Doxazosin (Cardura) 2 mg tablet Discontinued 2 MG PO DAILY 90 May 10, 2019 11:00pm June 23, 2019 9:50am Comment on above: Take 4 mg by mouth o nce daily. irbesartan 300 mg oral tablet (17 sources) Angiotensin 2 Receptor Romero Start: 01-31-2024 take 0.5 tablet by mouth twice daily irbesartan (AVAPRO) 300 mg tablet Take 0.5 tablets by mouth two times a day. 90 tablet 3 01/31/2024 Active Start: 08-19-2022 End: 01-31-2024 irbesartan (AVAPRO) 300 mg t ablet 150 mg twice daily. 08/19/2022 01/31/2024 Discontinued Start: 05-11-2019 take 150 mg by mouth twice daily Irbesartan Active 150 MG PO TWICE A DAY May 10, 2019 11:00pm Start: 09-07-2017 End: 05-11-2019 take 150 mg by mouth twice daily Irbesartan Discontinued 150 MG PO TWICE A DAY September 06, 2017 11:00pm May 11, 2019 3:10pm Comment on above: 150 mg twice daily. Lactobacillus Combination No.9 (Adult 50 Plus Probiotic) 4 billion cell capsule (2 sources) Start: take 4 capsules by mouth once daily Lactobacillus Combination No.9 (Adult 50 Plus Probiotic) 4 billion cell capsule Active 4000 MMU CELLS PO DAILY July 16, 2021 11:00pm administer with a meal Start: 07-17-2021 take 4 capsules by m outh once daily Lactobacillus Combination No.9 (Adult 50 Plus Probiotic) 4 billion cell capsule Active 4000 MMU CELLS PO DAILY July 17, 2021 12:00am administer with a meal Multivitamin capsule (10 sources) take 1 capsule by mo uth once daily Multivitamin capsule Take 1 capsule by mouth once daily. Active take 1 capsule by mouth once mojgan ly Multivitamin capsule Take 1 capsule by mouth once daily. 0 Active Comment on above: Take 1 capsule by mo uth once daily. Multivitamin,Tx-Iro n-Minerals (3 sources) Start: 01-16-2013 take 1 tablet by mouth once daily Multivitamin,Tx-Iro n-Minerals Active 1 TABLET PO DAILY January 16, 2013 3:47pm Start: 01-16-2013 take 1 tablet by arron th once daily Multivitamin,Nc-Pxdl-Itlgsowv Active 1 T ABLET PO DAILY January 16, 2013 12:00am Start: 01-16-2013 take 1 tablet by arron th once daily Multivitamin,Bs-Juqp-Vdrpngjx Active 1 T ABLET PO DAILY January 16, 2013 1:00am perflutren lipid microspheres 1.3 mL in NaCl (PF) 0.9% 10 mL injection (DEFINITY) (2 sources) Start: 11-09-2022 End: 02-08-2024 perflutren lipid microspheres 1.3 mL in NaCl (PF) 0.9% 10 mL injection (DEFINITY) predniSONE 10 mg oral tablet (4 sources) Start: 08-27-2022 End: 09-01-2022 take 1 tablet by mouth twice daily predniSONE (DELTASONE) 10 mg tablet Take 1 tablet by mouth twice daily for 5 days. 10 tablet 0 08/27/2022 09/01/2022 Active Comment on above: Take 1 tablet by arron th twice daily for 5 days. 125 ml sodium chloride 9 mg/ml prefilled syringe (2 sources) Start: 11-09-2022 End: 02-08-2024 sodium chloride 0.9 % (flush) 10 mL (BD POSIFLUSH) ubidecarenone 50 mg oral capsule (11 sources) Start: 01-15-2022 Coenzyme Q10 ( Co Q-10) 50 mg capsule Active 50 MG PO DAILY January 15, 2022 12:00am coenzyme Q10 (CO ENZYME Q-10) 100 mg cap capsule Take 100 mg by mouth once daily. Active Comment on above: Take 100 mg by mouth once daily. Completed/Discontinued Medications Medication Drug Class(es) Dates Sig (Normalized) Sig (Original) carvedilol 6.25 mg oral tablet (6 sources) alpha-Adrenergic Romero, beta-Adrenergic Romero Start: 05-11-2019 End: 12-22-2019 take 6.25 mg by mouth twice daily at mealtime Carvedilol Discontinued 6.25 MG PO TWICE A DAY May 10, 2019 11:00pm December 22, 2019 1:49pm must administer with a meal/food Start: 03-31-2019 End: 05-11-2019 take 12.5 mg by mouth twice daily Carvedilol Discontinued 12.5 MG PO TWICE A DAY March 31, 2019 12:00am May 11, 2019 3:11pm cephalexin 500 mg oral capsule (3 sources) Cephalosporin Antibacterial Start: 01-24-2013 End: 09-07-2017 take 500 mg by mouth three times daily Cephalexin Discontinued 500 MG PO THREE TIMES A DAY January 24, 2013 12:00am September 07, 2017 7:35am cholecalciferol 0.125 mg oral capsule (6 sources) Vitamin D Start: 12-22-2019 End: 10-04-2020 take 125 ug by mouth once daily Cholecalciferol (Vitamin D3) Discontinued 125 MCG PO DAILY December 21, 2019 11:00pm October 04, 2020 10:48am Start: 03-31-2019 End: 05-11-2019 take 1000 [IU] by mouth once daily Cholecalciferol (Vitamin D3) Discontinued 1000 UNIT PO DAILY March 31, 2019 12:00am May 11, 2019 3:11pm famotidine 20 mg oral tablet (3 sources) Histamine-2 Receptor Antagonist Start: 01-16-2013 End: 09-07-2017 take 20 mg by mouth at bedtime Famotidine Discontinued 20 MG PO AT BEDTIME January 16, 2013 12:00am September 07, 2017 7:35am ferrous sulfate 325 mg oral tablet (6 sources) Start: 05-11-2019 End: 10-04-2020 take 325 mg by mouth once daily Ferrous Sulfate Discontinued 325 MG PO DAILY May 11, 2019 3:11pm October 04, 2020 10:48am Start: 04-01-2019 End: 05-11-2019 take 325 mg by mouth twice daily Ferrous Sulfate Discontinued 325 MG PO TWICE A DAY April 01, 2019 12:00am May 11, 2019 3:12pm hydrALAZINE hydrochloride 25 mg oral tablet (3 sources) Arteriolar Vasodilator Start: 03-31-2019 End: 04-01-2019 take 50 mg by mouth three times daily Hydralazine Discontinued 50 MG PO THREE TIMES A DAY March 31, 2019 12:00am April 01, 2019 11:35am HYDROmorphone hydrochloride 2 mg oral tablet (3 sources) Opioid Agonist Start: 01-24-2013 End: 09-07-2017 take 2-4 mg by mouth four times daily as needed Hydromorphone Discontinued 2 - 4 MG PO 4 TIMES DAILY NEEDED January 24, 2013 12:35pm September 07, 2017 7:35am 24 hr isosorbide mononitrate 30 mg extended release oral tablet (3 sources) Nitrate Vasodilator Start: 03-31-2019 End: 04-01-2019 take 30 mg by mouth once daily Isosorbide Mononitrate Discontinued 30 MG PO DAILY March 31, 2019 12:00am April 01, 2019 11:35am lactobacillus acidophilus [id number] unt / pectin 100 mg oral tablet (3 sources) Start: 01-24-2013 End: 09-09-2017 Acidophilus-Pectin, [place] Discontinued 1 EACH PO TWICE A DAY January 24, 2013 12:00am September 09, 2017 8:48am olmesartan medoxomil 40 mg oral tablet (3 sources) Angiotensin 2 Receptor Romero Start: 01-16-2013 End: 09-07-2017 take 40 mg by mouth at bedtime Olmesartan Discontinued 40 MG PO AT BEDTIME January 16, 2013 12:00am September 07, 2017 7:36am Problems Active Problems Problem Classification Problem Date Documented Da te Episodic/Chronic Aortic; peripheral; and visceral artery aneurysms (20 sources) Ascending aorta dilatation; Translations: [Thoracic aortic ectasia] Onset: 07-17-2021 Chronic Biliary tract disease (10 sources) Biliary sludge; Translations: [Other specified diseases of biliary tract] Onset: 08-27-2022 08-27-2022 Chronic Cancer of breast (2 sources) Malignant neoplasm of female breast; Translations: [Malignant neoplasm of unspecified site of unspecified female breast] Onset: 08-27-2022 Chronic Cardiac dysrhythmias (12 sources) Cardiac arrhythmia; Translations: [Cardiac arrhythmia, unspecified] Onset: 01-15-2022 08-27-2022 Chronic Essential hypertension (20 sources) Essential hypertension; Translations: [Essential (primary) hypertension] Onset: 07-17-2021 Chronic Heart valve disorders (20 sources) Aortic incompetence, non-rheumatic ; Translations: [Nonrheumatic aortic (valve) insufficiency] Onset: 07-17-2021 Chronic Osteoarthritis (13 sources) Arthritis of wrist; Translations: [Primary osteoarthritis, unspecified wrist] Onset: 08-27-2022 Chronic Other circulatory disease (3 sources) Disorder of artery; Translations: [Disorder of arteries and arterioles, unspecified] 01-31-2024 Chronic Other circulatory disease (1 source) Disorder of aorta; Translations: [Disorder of arteries and arterioles, unspecified] 05-19-2024 Chronic Other circulatory disease (2 sources) Disorder of arteries and arterioles, unspecified; Translations: [Disorder of artery or arteriole] Onset: 05-23-2024 Chronic Other nutritional; endocrine; and metabolic disorders (13 sources) Hypocalcemia; Translations: [Hypocalcemia] Onset: 08-27-2022 08-27-2022 Chronic Other nutritional; endocrine; and metabolic disorders (10 sources) Hypomagnesemia; Translations: [Hypomagnesemia] Onset: 06-14-2021 08-27-2022 Chronic Other screening for suspected conditions (not mental disorders or infectious disease) (4 sources) Hypomagnesemia; Translations: [Abnormal level of blood mineral] Onset: 05-03-2024 04-01-2019 Episodic Residual codes; unclassified (1 source) Estrogen receptor positive status [ER+]; Translations: [Malignant neoplasm of breast in female, estrogen receptor positive, unspecified laterality, unspecified site of breast (HCC)] Onset: 08-27-2022 Episodic Syncope (4 sources) Syncope; Translations: [Syncope and collapse] Episodic Unclassified (1 source) New Onset: 11-13-2022 Past or Other Problems Problem Classification Problem Date Documented Da te Episodic/Chronic Biliary tract disease (10 sources) Polyp of gallbladder; Translations: [Cholesterolosis of gallbladder] Onset: 08-27-2022 08-27-2022 Episodic Fluid and electrolyte disorders (13 sources) Hypokalemia; Translations: [Hypokalemia] Onset: 08-27-2022 08-27-2022 Episodic Viral infection (1 source) Zoster without complications; Translations: [Zoster without complications] Onset: 09-04-2023 Episodic Results Test Name Value Interpretation Reference Range Facility [facility] 09-25-2024 CNOV Office Visit (ELSIEWS ) OLESYA CABALLERO ([id number]) 1945 F Date Time Provider Department 09/25/24 3:00 PM JENNIFER VALLES During your visit today, we recorded the following information about you: Pulse Respiration Blood pressure Weight 99/minute 12/minute 144/88 74.8 kg Height 1.626 m Jennifer Valles MD 09/25/2024 3:10 PM Signed [facility] Cardiology ([facility]) [address] [facility] [id number] OUTPATIENT VISIT DATE 09/25/2024 PRIMARY CARE PHYSICIAN: HISTORY OF PRESENT ILLNESS: Ms. Caballero is a 79 year old woman with a history of hypertension, fibromyalgia, and dilated ascending aorta who is here for routine follow-up. The patient reports feeling generally well but notes that heat significantly affects her, causing exhaustion even with minimal exertion, such as walking to the mailbox. She denies any new or worsening symptoms. A recent CT scan in April showed stable findings with an aortic diameter of 4.5 cm, consistent with previous echocardiogram measurements. She has a history of adverse reactions to multiple antihypertensive medications. She recalls a prior episode where her heart rate dropped to the 30s, rendering her unable to function, which she attributes to metoprolol. She also reports a severe cough with carvedilol. She has tried several beta blockers in the past, all of which reportedly caused significant functional impairment. History reviewed. No pertinent past medical history. History reviewed. No pertinent surgical history. SOCIAL HISTORY Social History Tobacco Use Smoking status: Never Smokeless tobacco: Never Substance Use Topics Alcohol use: Yes Comment: social Drug use: Never History reviewed. No pertinent family history. ALLERGIES: ALLERGIES Allergen Reactions Adhesive Rash Carvedilol Other: See Comments Shellfish Derived Angioedema Sulfa (Sulfonamide * Other: See Comments, Rash, Swelling Tongue swelling MEDICATIONS: amLODIPine (NORVASC) 5 mg tablet Take 1 tablet by mouth once daily. doxazosin (CARDURA) 4 mg tablet Take 1 tablet by mouth once daily. irbesartan (AVAPRO) 300 mg tablet Take 0.5 tablets by mouth two times a day. anastrozole (ARIMIDEX) 1 mg tablet Take 1 mg by mouth once daily. aspirin, enteric coated (ASPIR-81) 81 mg EC tablet Take 81 mg by mouth once daily. coenzyme Q10 (COENZYME Q-10) 100 mg cap capsule Take 100 mg by mouth once daily. Multivitamin capsule Take 1 capsule by mouth once daily. REVIEW OF SYSTEMS: Review of Systems Constitutional: Negative for chills, fever, malaise/fatigue and weight loss. HENT: Negative for hearing loss and sore throat. Eyes: Negative for blurred vision and double vision. Respiratory: Negative. Cardiovascular: Negative. Genitourinary: Negative for dysuria, frequency, hematuria and urgency. Musculoskeletal: Positive for joint pain. Skin: Negative. Neurological: Negative for dizziness, seizures, loss of consciousness, weakness and headaches. Endo/Heme/Allergies: Negative for environmental allergies. Does not bruise/bleed easily. Psychiatric/Behavioral: Negative for depression. PHYSICAL EXAMINATION: BP 144/88 Pulse 99 Resp 12 Ht 5' 4 (1.63m) Wt 165 lb (74.8kg) SpO2 98% BMI 28.31 kg/(m2). General: Pleasant woman sitting appears comfortable no apparent distress she is alert and oriented x3 HEENT: Carotid upstrokes are brisk without bruits no JVD appreciated. Pulmonary: Lungs are clear no rales, wheezes, rhonchi Cardiovascular: Normal S1, S2 with regular rate and rhythm. No murmurs, rubs, or gallops Extremities: Warm, well-perfused, no lower extremity edema. 2+ distal pulses CARDIOVASCULAR MEDICINE TESTING: ECG in the office 11/09/2022: Normal sinus rhythm with occasional conducted PACs. No significant ST or T wave changes Echocardiogram 05/18/2023: - Exam indication: Ascending aortic aneurysm - The left ventricle is normal in size. There is mild concentric left ventricular hypertrophy. Left ventricular systolic function is normal. EF = 55 ? 5% (2D biplane) Grade I left ventricular diastolic dysfunction. - The right ventricle is normal in size. Right ventricular systolic function is normal. - There are no significant valvular abnormalities. - The visualized aorta is dilated with a maximal dimension of 4.5 cm. Involves distal ascending aorta. - The patient has not had a prior CC echocardiographic exam for comparison. CTA Chest 05/25/2024: IMPRESSION: Moderate dilation of the ascending aorta, measuring 4.5 cm of the aortic root and 4.4 cm at the mid ascending aorta. CORONARY ANATOMY: normal origin of the coronary arteries. Mild calcified atherosclerotic changes of the coronary arteries. However, the current study is not optimized for coronary assessment. (more content not included)... Normal [facility] CTA CHEST (GATED) W IVCONon 05-25-2024 CTA CHEST (GATED) W IVCON * * *Final Report* * * DATE OF EXAM: May 25 2024 1:18PM [facility] 0125 - CTA CHEST (GATED) W IVCON / PROCEDURE REASON: multiple diagnoses * * * * Physician Interpretation * * * * CTA Aorta chest Direct Image Comparison: HISTORY: 78 years old Female with h/o dilated ascending aorta Evaluation for interval change. There is request to define thoracic and aortic anatomy TECHNIQUE: SCANNER: Multi-detector scanner PROTOCOL: Prospectively triggered helical high-pitch acquisitions (triggered Flash-mode) was performed following the intravenous administration of contrast material. Scan Range: thoracic inlet to the diaphragm CT Dose-Length Product (DLP): 214 mGy*cm CT Dose Reduction Employed: Automated exposure control(AEC) and iterative recon CONTRAST: IV administration of 80 ml Omnipaque 350 Scan acquisition: uncomplicated Macro Version: [id number] For optimization of anatomic evaluation, advanced 3-D off-line postprocessing was performed on a dedicated workstation by the interpreting physician. STUDY LIMITATIONS: Step artifact. RESULT: LINES, TUBES and DEVICES: None CHEST: Chest wall anatomy: unremarkable. LUNGS: unremarkable. There are scattered 5 mm noncalcified pulmonary nodule example in the left upper lobe (image 148). MEDIASTINUM: unremarkable. PERICARDIUM: unremarkable CENTRAL PULMONARY ARTERY: normal dimensions. Assessment is limited due to limited contrast enhancement. CARDIAC CHAMBERS: LEFT VENTRICLE: normal size. RIGHT VENTRICLE: normal size Left atrium: prominent. SHA: normal Right atrium: normal size CENTRAL VENOUS and PULMONARY VENOUS RETURN: normal. Coronary Sinus: normal size MITRAL VALVE: assessment is limited in the current study - no leaflet calcification. No annular calcification TRICUSPID and PULMONIC VALVE: appear unremarkable. CORONARY ANATOMY: normal origin of the coronary arteries. Mild calcified atherosclerotic changes of the coronary arteries. However, the current study is not optimized for coronary assessment. AORTIC VALVE: appears trileaflet. No leaflet calcification. AORTA: Pathology: No acute aortic pathology. Intervention: None Complications: n/a Aortic Size: Dilation. STJ: effaced. Wall Changes: Mild calcifications of the aortic arch and moderate opacification of the descending thoracic aorta Arch Branch Vessels: Patent, normal size proximal segments of the arch branch vessels, with mild partially calcified wall changes. AORTIC DIMENSIONS: AORTIC ROOT: 4.5 cm measured [id number] mid ASCENDING THORACIC AORTA: 4.4 cm 14.4 mid AORTIC ARCH: 3.8 cm mid DESCENDING THORACIC AORTA: 3.0 cm limited upper ABDOMEN: Multiple simple appearing cystic lesions of the liver BONES and SOFT TISSUES: Utilities Service Investigator (topogram) images: No additional findings. IMPRESSION: Moderate dilation of the ascending aorta, measuring 4.5 cm of the aortic root and 4.4 cm at the mid ascending aorta. Small pulmonary nodules. Incidental Finding: Follow-up Incidental Finding: Follow-up Acuity: Incidental Finding: Solid: <6 mm (solitary or multiple) Routing Code: N/A Recommendation: No imaging follow-up is recommended Time Frame: N/A Comments: If there are risk factors for lung malignancy, a follow-up chest CT exam could be obtained in 12 months --END OF FINDING-- Lining Maker: JUSTIN Transcribe Date/Time: May 25 2024 1:45P Dictated by : OSMAR KING MD This examination was interpreted and the report reviewed and electronically signed by: OSMAR KING MD on May 25 2024 5:20PM EST [id number] ACTIONABLE Invalid Interpretation Code [facility] CTA Chest vessels W contrast IVOrdered By: [facility] Provider on 05-25-2024 Interpretation and review of laboratory results Abnormal [facility] Radiology Result ACTIONABLE Abnormal [facility] Comment on above: This report contains an incidental or actionable finding. This finding may be a new finding separate from the reason your provider ordered the imaging test or it may be an already known finding that needs additional or continued follow-up. Because of this incidental or actionable finding, you may need another test (imaging or a different type of test). Please contact your provider for the next steps. [facility] CTA Chest vessels W contrast Keila 05-25-2024 IMPRESSION: Moderate dilation of the ascending aorta, measuring 4.5 cm of the aortic root and 4.4 cm at the mid ascending aorta. Small pulmonary nodules. Incidental Finding: Follow-up Incidental Finding: Follow-up Acuity: Incidental Finding: Solid: <6 mm (solitary or multiple) Routing Code: N/A Recommendation: No imaging follow-up is recommended Time Frame: N/A Comments: If there are risk factors for lung malignancy, a follow-up chest CT exam could be obtained in 12 months --END OF FINDING-- Lining Maker: JUSTIN Transcribe Date/Time: May 25 2024 1:45P Dictated by : OSMAR KING MD This examination was interpreted and the report reviewed and electronically signed by: OSMAR KING MD on May 25 2024 5:20PM [facility] RADIOLOGY * * *Final Report* * * DATE OF EXAM: May 25 2024 1:18PM [facility] 0125 - CTA CHEST (GATED) W IVCON / PROCEDURE REASON: multiple diagnoses * * * * Physician Interpretation * * * * CTA Aorta chest Direct Image Comparison: HISTORY: 78 years old Female with h/o dilated ascending aorta Evaluation for interval change. There is request to define thoracic and aortic anatomy TECHNIQUE: SCANNER: Multi-detector scanner PROTOCOL: Prospectively triggered helical high-pitch acquisitions (triggered Flash-mode) was performed following the intravenous administration of contrast material. Scan Range: thoracic inlet to the diaphragm CT Dose-Length Product (DLP): 214 mGy*cm CT Dose Reduction Employed: Automated exposure control(AEC) and iterative recon CONTRAST: IV administration of 80 ml Omnipaque 350 Scan acquisition: uncomplicated Macro Version: [id number] For optimization of anatomic evaluation, advanced 3-D off-line postprocessing was performed on a dedicated workstation by the interpreting physician. STUDY LIMITATIONS: Step artifact. RESULT: LINES, TUBES and DEVICES: None CHEST: Chest wall anatomy: unremarkable. LUNGS: unremarkable. There are scattered 5 mm noncalcified pulmonary nodule example in the left upper lobe (image 148). MEDIASTINUM: unremarkable. PERICARDIUM: unremarkable CENTRAL PULMONARY ARTERY: normal dimensions. Assessment is limited due to limited contrast enhancement. CARDIAC CHAMBERS: LEFT VENTRICLE: normal size. RIGHT VENTRICLE: normal size Left atrium: prominent. SHA: normal Right atrium: normal size CENTRAL VENOUS and PULMONARY VENOUS RETURN: normal. Coronary Sinus: normal size MITRAL VALVE: assessment is limited in the current study - no leaflet calcification. No annular calcification TRICUSPID and PULMONIC VALVE: appear unremarkable. CORONARY ANATOMY: normal origin of the coronary arteries. Mild calcified atherosclerotic changes of the coronary arteries. However, the current study is not optimized for coronary assessment. AORTIC VALVE: appears trileaflet. No leaflet calcification. AORTA: Pathology: No acute aortic pathology. Intervention: None Complications: n/a Aortic Size: Dilation. STJ: effaced. Wall Changes: Mild calcifications of the aortic arch and moderate opacification of the descending thoracic aorta Arch Branch Vessels: Patent, normal size proximal segments of the arch branch vessels, with mild partially calcified wall changes. AORTIC DIMENSIONS: AORTIC ROOT: 4.5 cm measured [id number] mid ASCENDING THORACIC AORTA: 4.4 cm 14.4 mid AORTIC ARCH: 3.8 cm mid DESCENDING THORACIC AORTA: 3.0 cm limited upper ABDOMEN: Multiple simple appearing cystic lesions of the liver BONES and SOFT TISSUES: Utilities Service Investigator (topogram) images: No additional findings. [facility] Provider, [facility] - 05/25/2024 * * *Final Report* * * DATE OF EXAM: May 25 2024 1:18PM [facility] 0125 - CTA CHEST (GATED) W IVCON / PROCEDURE REASON: multiple diagnoses * * * * Physician Interpretation * * * * CTA Aorta chest Direct Image Comparison: HISTORY: 78 years old Female with h/o dilated ascending aorta Evaluation for interval change. There is request to define thoracic and aortic anatomy TECHNIQUE: SCANNER: Multi-detector scanner PROTOCOL: Prospectively triggered helical high-pitch acquisitions (triggered Flash-mode) was performed following the intravenous administration of contrast material. Scan Range: thoracic inlet to the diaphragm CT Dose-Length Product (DLP): 214 mGy*cm CT Dose Reduction Employed: Automated exposure control(AEC) and iterative recon CONTRAST: IV administration of 80 ml Omnipaque 350 Scan acquisition: uncomplicated Macro Version: [id number] For optimization of anatomic evaluation, advanced 3-D off-line postprocessing was performed on a dedicated workstation by the interpreting physician. STUDY LIMITATIONS: Step artifact. RESULT: LINES, TUBES and DEVICES: None CHEST: Chest wall anatomy: unremarkable. LUNGS: unremarkable. There are scattered 5 mm noncalcified pulmonary nodule example in the left upper lobe (image 148). MEDIASTINUM: unremarkable. PERICARDIUM: unremarkable CENTRAL PULMONARY ARTERY: normal dimensions. Assessment is limited due to limited contrast enhancement. CARDIAC CHAMBERS: LEFT VENTRICLE: normal size. RIGHT VENTRICLE: normal size Left atrium: prominent. SHA: normal Right atrium: normal size CENTRAL VENOUS and PULMONARY VENOUS RETURN: normal. Coronary Sinus: normal size MITRAL VALVE: assessment is limited in the current study - no leaflet calcification. No annular calcification TRICUSPID and PULMONIC VALVE: appear unremarkable. CORONARY ANATOMY: normal origin of the coronary arteries. Mild calcified atherosclerotic changes of the coronary arteries. However, the current study is not optimized for coronary assessment. AORTIC VALVE: appears trileaflet. No leaflet calcification. AORTA: Pathology: No acute aortic pathology. Intervention: None Complications: n/a Aortic Size: Dilation. STJ: effaced. Wall Changes: Mild calcifications of the aortic arch and moderate opacification of the descending thoracic aorta Arch Branch Vessels: Patent, normal size proximal segments of the arch branch vessels, with mild partially calcified wall changes. AORTIC DIMENSIONS: AORTIC ROOT: 4.5 cm measured [id number] mid ASCENDING THORACIC AORTA: 4.4 cm 14.4 mid AORTIC ARCH: 3.8 cm mid DESCENDING THORACIC AORTA: 3.0 cm limited upper ABDOMEN: Multiple simple appearing cystic lesions of the liver BONES and SOFT TISSUES: Utilities Service Investigator (topogram) images: No additional findings. IMPRESSION IMPRESSION: Moderate dilation of the ascending aorta, measuring 4.5 cm of the aortic root and 4.4 cm at the mid ascending aorta. Small pulmonary nodules. Incidental Finding: Follow-up Incidental Finding: Follow-up Acuity: Incidental Finding: Solid: <6 mm (solitary or multiple) Routing Code: N/A Recommendation: No imaging follow-up is recommended Time Frame: N/A Comments: If there are risk factors for lung malignancy, a follow-up chest CT exam could be obtained in 12 months --END OF FINDING-- Lining Maker: JUSTIN Transcribe Date/Time: May 25 2024 1:45P Dictated by : OSMAR KING MD This examination was interpreted and the report reviewed and electronically signed by: OSMAR KING MD on May 25 2024 5:20PM EST [facility] Radiology Study observation (narrative) [facility] NURSING PROGon 05-25-2024 NURSING PROG HNO ID: [id number] Author: MIKA FRIEND RN Service: Radiology Author Type: Registered Nurse Type: Nursing Progress Note Filed: 05/25/2024 12:58 Note Text: Radiology Service Progress Note DATE OF SERVICE: May 25, 2024 TIME: 12:57 PM PATIENT WEIGHT: 173 LBS PATIENT IDENTITY VERIFICATION COMPLETED USING TWO (2) STANDARD IDENTIFIERS: Name and Date of confirmed by patient verbally. FALL SCREENING: Has the patient had 2 falls in the last year or 1 fall with injury or currently using an Ambulatory Assistive Device (Walker, Cane, Wheelchair, Crutches, etc.)? No PATIENT GENDER DATA: Assigned female at . status: : No status: NO. ALLERGIES: Reviewed and unchanged CONTRAST ALLERGY: No EXAM: CT -CONTRAST INDUCED NEPHROPATHY RISK FACTORS: Patient age > 60 years CREATININE: Creatinine Date Value Ref Range Status 05/23/2024 0.84 0.58 - 0.96 mg/dL Final Estimated Glomerular Filtration Rate Date Value Ref Range Status 05/23/2024 72 >=60 mL/min/1.73m? Final Comment: Estimated Glomerular Filtration Rate (eGFR) is calculated using the 2020 CKD-EPI creatinine equation. This equation utilizes serum creatinine, sex, and age as parameters. The creatinine assay has traceable calibration to isotope dilution-mass spectrometry. Refer to KDIGO guidelines for clinical interpretation. In patients with unstable renal function, e.g. those with acute kidney injury, the eGFR may not accurately reflect actual GFR. P.O.C.T. RESULTS: POC done: Yes, See Lab Tab May 25, 2024 TREATMENT: N/A IV SITE: Ambulatory: A peripheral IV was started in the Left antecubital site with a Angio cath: 20 gauge. IV SITE APPEARANCE: Clean,Dry and Intact SIGNATURE: Mika Friend RN PATIENT NAME: Olesya Caballero DATE: May 25, 2024 TIME: 12:57 PM Normal [facility] Basic metabolic 2000 panelon 05-23-2024 Anion gap [Moles/Vol] 9 mmol/L Normal 8-15 [facility] Comment on above: Order Comment: Speci men Type: BLOOD SPECIMEN Ordering Facility: [facility] Address: [address] [place] [address] Performed By: #### 2 4321-2 #### [facility] CLIA [id number] [address] [place] [address] [place] Calcium [Mass/Vol] 9.5 mg/dL Normal 8.5-10.2 [facility] Comment on above: Order Comment: Speci men Type: BLOOD SPECIMEN Ordering Facility: [facility] Address: [address] [place] [address] Performed By: #### 2 4321-2 #### [facility] CLIA [id number] [address] [place] [address] [place] Chloride [Moles/Vol] 106 mmol/L Normal 98-107 [facility] Comment on above: Order Comment: Speci men Type: BLOOD SPECIMEN Ordering Facility: [facility] Address: [address] [place] [address] Performed By: #### 2 4321-2 #### [facility] CLIA [id number] [address] [place] [address] [place] CO2 [Moles/Vol] 26 mmol/L Normal 22-30 [facility] Comment on above: Order Comment: Speci men Type: BLOOD SPECIMEN Ordering Facility: [facility] Address: [address] [place] [address] Performed By: #### 2 4321-2 #### [facility] [id number] [address] [place] [address] [place] Creatinine [Mass/Vol] 0.84 mg/dL Normal 0.58-0.96 [facility] Comment on above: Order Comment: Speci men Type: BLOOD SPECIMEN Ordering Facility: [facility] Address: [address] [place] [address] Performed By: #### 2 4321-2 #### [facility] CLIA [id number] [address] [place] [address] [place] Creatinine and Glomerular filtration rate.predicted panel (S/P/Bld) 72 mL/min/1.73m??? Normal >=60 [facility] Comment on above: Order Comment: Speci men Type: BLOOD SPECIMEN Ordering Facility: [facility] Address: [address] [place] [address] Result Comment: Lorraine mated Glomerular Filtration Rate (eGFR) is calculated using the 2020 CKD-EPI creatinine equation. This equation utilizes serum creatinine, sex, and age as parameters. The creatinine assay has traceable calibration to isotope dilution-mass spectrometry. Refer to KDIGO guidelines for clinical interpretation. In patients with unstable renal function, e.g. those with acute kidney injury, the eGFR may not accurately reflect actual GFR. Performed By: #### 2 4321-2 #### [facility] CLIA [id number] [address] [place] [address] [place] Glucose [Mass/Vol] 94 mg/dL Normal 74-99 [facility] Comment on above: Order Comment: Seth webster Type: BLOOD SPECIMEN Ordering Facility: [facility] Address: [address] [place] [address] Result Comment: The [place] Diabetes Association (ADA) provides guidance for cutoff values for fasting glucose and random glucose. The ADA defines fasting as no caloric intake for at least 8 hours. Fasting plasma glucose results between 100 to 125 mg/dL indicate increased risk for diabetes (prediabetes). Fasting plasma glucose results greater than or equal to 126 mg/dL meet the criteria for diagnosis of diabetes. In the absence of unequivocal hyperglycemia, results should be confirmed by repeat testing. In a patient with classic symptoms of hyperglycemia or hyperglycemic crisis, random plasma glucose results greater than or equal to 200 mg/dL meet the criteria for diagnosis of diabetes. Reference: Standards of Medical Care in Diabetes 2016, [place] Diabetes Association. Diabetes Care. 2016.39(Suppl 1). Performed By: #### 2 4321-2 #### [facility] [id number] [address] [place] [address] [place] Potassium [Moles/Vol] 3.9 mmol/L Normal 3.7-5.1 [facility] Comment on above: Order Comment: Seth webster Type: BLOOD SPECIMEN Ordering Facility: [facility] Address: [address] [place], [place] [id number] Performed By: #### 2 4321-2 #### [facility] [id number] [address] [place] [id number] [place] Sodium [Moles/Vol] 141 mmol/L Normal 136-144 [facility] Comment on above: Order Comment: Speci men Type: BLOOD SPECIMEN Ordering Facility: [facility] Address: [address] [place] [address] Performed By: #### 2 4321-2 #### [facility] CLIA [id number] [address] [place] [address] [place] Urea nitrogen [Mass/Vol] 18 mg/dL Normal 7-21 [facility] Comment on above: Order Comment: Speci men Type: BLOOD SPECIMEN Ordering Facility: [facility] Address: [address] [place] [address] Performed By: #### 2 4321-2 #### [facility] CLIA [id number] [address] [place] [address] [place] Dexa Bone Density Studyon Dexa Bone Density Study [facility] [address] [place] [address] Dexa Bone Density Study MR#: [id number] Acct: [id number] Name: OLESYA CABALLERO Rep #: [id number] : 1945 F 78 From: Geo Reyes MD PCP: Dr. Juvencio Velazquez MD Status: [facility] Study: Dexa Bone Density Study Date of Exam: 04/18/24 Exam# [id number] Ordering Dr: Juvencio Velazquez MD EXAM: CLINICAL INDICATION: Determine bone density. CLINICAL HISTORY: Postmenopausal COMPARISON: 02/05/2015. TECHNIQUE: Bone densitometry of the lumbar spine and hips was performed using the HOLOGIC DEXA scanner. FINDINGS: Bone Density Measurements: SPINE AP Spine (L1-L4): 0.785 g/cm2 T-Score: -2.7 Z-Score: 0.0 WHO Classification: OSTEOPOROSIS There is -7.0 % change since the prior examination of 02/08/2020 LEFT FEMUR Femoral TOTAL (LEFT): 0.714 g/cm2 T-Score: -1.9 Z-Score: 0.0 WHO Classification: OSTEOPENIA Femoral NECK (LEFT): 0.558 g/cm2 T-Score: -2.6 Z-Score: -0.4 WHO Classification: OSTEOPOROSIS There is -4.2 % change since the prior examination of 02/08/2020 RIGHT FEMUR Femoral TOTAL (RIGHT): 0.684 g/cm2 T-Score: -2.1 Z-Score: -0.2 WHO Classification: OSTEOPENIA Femoral NECK (RIGHT): 0.532 g/cm2 T-Score: -2.9 Z-Score: -0.7 WHO Classification: Osteoporosis There is -2.0 % change since the prior examination of 02/08/2020 BD/Dexa Bone Density Study IMPRESSION: Osteoporosis World Health Organization criteria for BMD interpretation classify patients as: Normal (T-score at or above -1.0), Osteopenic (T-score between -1.0 and -2.5),or Osteoporotic (T-score at or below -2.5). The presence of vertebral abnormalities such as scoliosis or osteophytes, or aortic/ligamentous calcifications can alter readings of the lumbar spine. In such cases, readings of the hips are more reliable. Reading Location: [facility] CC: Dr. Juvencio Velazquez MD Lining Maker: Signed Normal [facility] SCRN MAMM (CAD)W/LOLA BILATo n 04-18-2024 SCRN MAMM (CAD)W/LOLA BILAT [facility] [address] [place] [id number] SCRN MAMM (CAD)W/LOLA BILAT MR#: [id number] Acct: [id number] Name: OLESYA CABALLERO Rep #: [id number] : 1945 F 78 From: Carlos Manuel jimenez MD PCP: Dr. Juvencio Velazquez MD Status: [facility] Study: SCRN MAMM (CAD)W/LOLA BILAT Date of Exam: 04/01 10/23 Exam# [id number] Ordering Dr: Juvencio Velazquez MD PROCEDURE: SCRN MAMM (CAD)W/LOLA BILAT REASON FOR EXAM: F, Age 78 y/o, personal history of breast cancer. Prior left stereotactic breast biopsy and left lumpectomy with radiation. Bilateral breast reduction surgery. TECHNIQUE: Bilateral screening digital breast tomosynthesis with 2D and 3D images. Computer aided detection. COMPARISON: Prior exam(s) dating back to January 14, 2023.. FINDINGS: The breasts are heterogeneously dense which may obscure small masses. The patient is status post lumpectomy in the central portion of the right breast with resultant postoperative deformity and dystrophic calcification. No suspicious masses, areas of developing architectural distortion, or suspicious calcifications. Stable examination. BI/SCRN MAMM (CAD)W/LOLA BILAT IMPRESSION: BI-RADS 2: BENIGN. RECOMMEND ANNUAL MAMMOGRAPHIC SCREENING. Follow-up code: Routine Follow-up The patient will be notified of the results by letter. Reading Location: [place] [address] CC: Dr. Juvencio Velazquez MD Lining Maker: Signed Normal [facility] CNOVon 01-31-2024 CN Office Visit (CAWSTR ) OLESYA CABALLERO ([id number]) 1945 F Date Time Provider Department 01/31/24 2:40 PM [facility] During your visit today, we recorded the following information about you: Pulse Respiration Blood pressure Weight 68/minute 16/minute 116/78 78.8 kg Jennifer Valles MD 01/31/2024 2:51 PM Signed [facility] Cardiology ([facility]) [address] [facility] [id number] OUTPATIENT VISIT DATE 01/31/2024 PRIMARY CARE PHYSICIAN: HISTORY OF PRESENT ILLNESS: Ms. Caballero is a 78 year old woman with a history of hypertension, fibromyalgia, and dilated ascending aorta who is here for routine follow-up. She has no specific complaints since her last visit. She has difficulties due to her fibromyalgia and arthritis. She has not had chest pain, chest pressure, shortness of breath, or dyspnea on exertion. She denies symptoms concerning for congestive heart failure including PND, orthopnea, or lower extremity edema. No past medical history on file. No past surgical history on file. SOCIAL HISTORY Social History Tobacco Use Smoking status: Never Smokeless tobacco: Never Substance Use Topics Alcohol use: Yes Comment: social Drug use: Never No family history on file. ALLERGIES: ALLERGIES Allergen Reactions Adhesive Rash Carvedilol Other: See Comments Shellfish Derived Angioedema Sulfa (Sulfonamide * Other: See Comments, Rash, Swelling Tongue swelling MEDICATIONS: anastrozole (ARIMIDEX) 1 mg tabletTake 1 mg by mouth once daily.Disp: Rfl: aspirin, enteric coated (ASPIR-81) 81 mg EC tabletTake 81 mg by mouth once daily.Disp: Rfl: coenzyme Q10 (COENZYME Q-10) 100 mg cap capsuleTake 100 mg by mouth once daily.Disp: Rfl: Multivitamin capsuleTake 1 capsule by mouth once daily.Disp: Rfl: amLODIPine (NORVASC) 5 mg tabletTake 1 tablet by mouth once daily.Disp: 90 tabletRfl: 3 doxazosin (CARDURA) 4 mg tabletTake 1 tablet by mouth once daily.Disp: 90 tabletRfl: 3 irbesartan (AVAPRO) 300 mg tabletTake 0.5 tablets by mouth two times a day.Disp: 90 tabletRfl: 3 REVIEW OF SYSTEMS: Review of Systems Constitutional: Negative for chills, fever, malaise/fatigue and weight loss. HENT: Negative for hearing loss and sore throat. Eyes: Negative for blurred vision and double vision. Respiratory: Negative. Cardiovascular: Negative. Genitourinary: Negative for dysuria, frequency, hematuria and urgency. Musculoskeletal: Positive for joint pain. Skin: Negative. Neurological: Negative for dizziness, seizures, loss of consciousness, weakness and headaches. Endo/Heme/Allergies: Negative for environmental allergies. Does not bruise/bleed easily. Psychiatric/Behavioral: Negative for depression. PHYSICAL EXAMINATION: BP 116/78 Pulse 68 Resp 16 Wt 173 lb 11.6 oz (78.8kg) General: Pleasant woman sitting appears comfortable no apparent distress she is alert and oriented x3 HEENT: Carotid upstrokes are brisk without bruits no JVD appreciated. Pulmonary: Lungs are clear no rales, wheezes, rhonchi Cardiovascular: Normal S1, S2 with regular rate and rhythm. No murmurs, rubs, or gallops Extremities: Warm, well-perfused, no lower extremity edema. 2+ distal pulses CARDIOVASCULAR MEDICINE TESTING: ECG in the office 11/09/2022: Normal sinus rhythm with occasional conducted PACs. No significant ST or T wave changes Echocardiogram 05/18/2023: - Exam indication: Ascending aortic aneurysm - The left ventricle is normal in size. There is mild concentric left ventricular hypertrophy. Left ventricular systolic function is normal. EF = 55 ? 5% (2D biplane) Grade I left ventricular diastolic dysfunction. - The right ventricle is normal in size. Right ventricular systolic function is normal. - There are no significant valvular abnormalities. - The visualized aorta is dilated with a maximal dimension of 4.5 cm. Involves distal ascending aorta. - The patient has not had a prior CC echocardiographic exam for comparison. IMPRESSION: Ms. Caballero is a 77 year old woman with a history of hypertension and dilated aorta who is here to establish new cardiology follow-up PLAN AND RECOMMENDATIONS: 1. Nonrheumatic aortic valve insufficiency - ICD9: 424.1, ICD10: I35.1 (primary diagnosis) No significant valvular heart disease noted on most recent echocardiogram 2. Ascending aorta dilatation (HCC) - ICD9: 447.71, ICD10: I77.810 Related ascending aorta 4.[address] scan. Continue current medical therapy and aggressive treatment of her hypertension - CTA CHEST (GATED) W IVCON - BASIC METABOLIC PANEL 3. Essential hypertension - ICD9: 401.9, ICD10: I10 Well-controlled on current regimen - BASIC METABOLIC PANEL 4. Disorder of artery or arteriole (HCC) - ICD9: 447.9, ICD10: I77.9 - CTA C (more content not included)... Normal [facility] Urgent Care Visit Reporton 0 09-04-2023 Urgent Care Visit Report [facility] [address], [address] [place] [address] OFFICE VISIT Date of Service: 09/04/23 MR#: [id number] Acct: [id number] Name: OELSYA CABALLERO Rep #: [id number] : 1945 Provider: ZAMZAM Raymundo Age/Sex: 78/F Location: [facility] Status: Signed Intake Vital Signs 01/15/22 13:03 09/04/23 10:30 Height 5 ft 4 in 5 ft 3 in Weight: 172 lb 2 oz BMI 30.4 BP 162/90 H Blood Pressure Location Rt brachial Position Sitting Respiration 16 Pulse 103 H Pulse Source NIBP Temp 98.0 F Temp Source Temporal Pulse Oximetry (%) 96 Oxygen Delivery Method room air Intake Visit Reasons: BUG BITE/RASH Chief Complaint: rash Flash Designer Required: No Is patient in pain?: No Allergies adhesive Allergy (Verified 09/04/23 10:38) Rash hydrocodone bitartrate (From Vicodin) Allergy (Verified 09/04/23 10:38) NUMBNESS ON ONE SIDE OF BODY shellfish derived Allergy (Verified 09/04/23 10:38) Angioedema Sulfa (Sulfonamide Antibiotics) Allergy (Verified 09/04/23 10:38) Swelling/hives aspartame Adverse Reaction (Verified 09/04/23 10:38) MIGRAINE MORLEY carvedilol (From Coreg) Adverse Reaction (Verified 09/04/23 10:38) bradycardia Medications ???Medication ???Instructions ???Recorded ???Confirmed ???Type aspirin 81 mg tablet,delayed 81 mg PO DAILY 01/16/13 09/04/23 History release multivitamin,ju-tjfo-fykyrux s 27 1 tab PO DAILY SUPPLEMENT 01/16/13 09/04/23 History mg-0.4 mg tablet anastrozole 1 mg tablet 1 mg PO DAILY 09/09/17 09/04/23 History amlodipine 5 mg tablet 5 mg PO DAILY #30 tabs 04/01/19 09/04/23 Rx irbesartan 300 mg tablet 150 mg PO BID 05/11/19 09/04/23 History lactobacillus combination no.9 4 4,000 mmu cells PO DAILY 07/17/21 09/04/23 History billion cell capsule (Adult 50 Plus Probiotic) coenzyme Q10 50 mg capsule (Co 50 mg PO DAILY 01/15/22 09/04/23 History Q-10) doxazosin 2 mg tablet 4 mg (2 x 2 mg) PO DAILY #180 tabs 05/31/22 09/04/23 Rx valacyclovir 1 gram tablet 1,000 mg PO TID 7 days #21 tabs 09/04/23 09/04/23 Rx Is last menstrual period known: No Post menopausal: Yes Patient : No Have you fallen in the past year?: No Nurse's Note: rash to left breast x 3 days. slight itching, denies pain. hx left breast reconstruction and has significantly decreased sensation in that area. concern for shingles. [facility] Medical History (Updated 09/04/23 @ 10:49 by ZAMZAM Mcclure) Ascending aorta dilation Non-rheumatic mitral regurgitation Non-rheumatic tricuspid valve insufficiency Nonrheumatic aortic (valve) insufficiency Essential hypertension Chronic cholecystitis Gallbladder polyp Sludge in gallbladder Gout Acid reflux Diarrhea Nausea vomiting Abdominal pain Breast cancer, left Surgical History History of left heart catheterization (LHC) ( 08/20/95) History of laparoscopic cholecystectomy ( 09/09/17) History of lumpectomy of left breast History of abdominal hysterectomy Family History Mother Arthritis Hypertension Heart disease High cholesterol Osteoporosis Father Skin cancer Sister Kidney disease lupus/autoimmune disease Social History Smoking Status: Never smoker alcohol intake: current alcohol intake frequency: a few times a month substance use type: does not use caffeine: Yes Type: coffee Number of servings: 1 HPI HPI Chief Complaint: rash Details: OLESYA CABALLERO, is a 78 F who presents to the office today for rash -started 3 days ago -had a small red area- thought was bug bite under left breast- then started to get rash around it- spreading -Benadryl, topical silver ointment, alcohol -no fever or chills -on left breast- has hx breast cancer and radiation -denies itching or pain -BP elevated- did not take all her meds today - denies any cp, palpitations or sob -does not recall getting bit by anything but states that skin tissue does not have a lot of feeling so not sure she would have felt anyting ROS Const Constitutional: Positive for other (ROS negative x6 except what was placed in HPI) Exam Const General: cooperative and no acute distress Orientation: alert and oriented x3 Resp Effort Inspection: normal respiratory effort, able to speak in complete sentences and symmetric chest movement Auscultation: Bilateral: Clear to Auscultation, Left: Clear to Auscultation and Right: Clear to Auscultation Cardio Rate: regular rate Rhythm: regular rhythm Heart Sounds: S1 normal and S2 normal GI Auscultation: normal bowel sounds Palpation: soft and no hepatosplenomegaly Skin Other: -shingles rash to left breast dermatome T5-6 (more content not included)... [facility] OLESYA CABALLERO ([id number]) 1945 F Date Time Provider Department 11/13/22 10:30 AM JOSE ROCHA AGPOB3 During your visit today, we recorded the following information about you: Respiration Weight Height 18/minute 76.2 kg 1.626 m Jose Rocha MD 11/16/2022 11:37 AM Signed Patient presents with: Right Wrist - New HISTORY OF PRESENT ILLNESS Olesya Caballero is a 77 year old female right hand dominant who presents for evaluation of right wrist pain. Patient localizes the area of discomfort to the region of the STT pointing directly to the volar wrist. She has no history of trauma. Symptoms have been present for some time but over the past several months have been much more severe. No history of trauma. No prior treatment aside from oral anti-inflammatories and a brace. Location: Right wrist Severity: 5 on a scale of 0-10 Duration of symptoms: Worsening over the past several months Date of injury n/a Symptoms have Worsened Previous treatment: See above Context worse with Activity/Motion Occupation: food safety specialist Smoking status: Tobacco Use: Never REVIEW OF SYSTEMS Cardiovascular ROS:No history of chest pain, palpitation, orthopnea, cyanosis, pedal edema Neurologic ROS: Numbness and Tingling:No PAST MEDICAL HISTORY Past medical, surgical, family, and social histories have been reviewed and updated with the patient today and are located elsewhere in the medical record. Diabetes:No ALLERGIES ALLERGIES Allergen Reactions Adhesive Rash Carvedilol Other: See Comments Shellfish Derived Angioedema Sulfa (Sulfonamide * Other: See Comments, Rash, Swelling Tongue swelling PHYSICAL EXAMINATION Resp 18 Ht 162.6 cm (5' 4) Wt 76.2 kg (168 lb) BMI 28.84 kg/m? Body mass index is 28.84 kg/m?. General Appearance Well appearing, alert, in no acute distress, well-hydrated, well nourished. Alert and oriented times: 3 Normal affect times: 3 Appears stated age and well nourished Gait and station:normal Right Upper Extremity Exam: Inspection shows some volar swelling at the wrist. There is some slight synovitis of the FCR associated with this Skin: WNL No wounds or lacerations Tenderness to palpation: Tender with deep palpation along the scaphoid head/STT articulation ROM: Full composite fist Tolerates wrist flexion and extension Instability: none Sensation:Normal sensation Atrophy: None Brisk capillary refill Special tests: None with resisted wrist extension REVIEW OF STUDIES X-rays 08/27/2022 3 views of the right wrist: Severe osteoarthritis of the scaphotrapeziotrapezoidal joint. Mild osteoarthritis of the first CMC joint. Carpal alignment is normal. Accessory ossification center the ulnar styloid process. No other significant abnormality. ASSESSMENT AND PLAN ASSESSMENT/PLAN: 1. 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 Her symptoms and exam are consistent with severe STT arthritis and some associated tenosynovitis of the FCR tendon. We reviewed treatment options including anti-inflammatories, bracing, injections, surgery. She like to proceed with the injection today. Please see procedure note. We will follow-up in 1 month to assess her progress. All of her questions were answered to her satisfaction. Medium Joint Arthro/Inj: R intercarpal Informed Consent Consent Obtained: Verbal Alba Protocol A moment to CARE was completed. SIGN IN Personnel directly involved with the procedure wore the appropriate PPE. Patient/Surrogate Stated/Verified: Patient name, Date of , Relevant allergies and Intended procedure TIME OUT Intended patient and procedure match the source document(s). Relevant labs, photos, and/or imaging studies have been reviewed. Correct side/site marked and visible. Medications required for procedure verified. 11/13/2022 10:56 AM The procedure site was prepped in the usual sterile fashion. Medications: 12 mg betamethasone acetate-betamethasone sodium phosphate 6 mg/mL Anesthetics: 1 mL lidocaine (PF) 10 mg/mL (1 %) Outcome: tolerated well, no immediate complications Post-injection instructions were reviewed with the patient and the patient voiced understanding of these instructions. SIGN OUT All instruments, equipment, possible retained foreign bodies accounted for. Jose Rocha MD Patient educated on treatment options for STT arthritis. Patient instructed to call the office with questions or concerns. Allergies As of Date: 11/13/2022 Noted Allergy Reaction ADHESIVE 03/31/2019 2 - Rash CARVEDILOL 10/04/2020 14 - Other: See Comments SHELLFISH DERIVED 03/31/2019 18 - Angioedema SULFA (SULFONAMIDE ANTIBIOTICS) 01/25/2015 14 - Other: See Comments 2 - Rash 7 - Swelling Comments: To (more content not included)... Normal [facility] CNPNon 08-28-2022 CNPN Telephone (AGINTMAC) OLESYA CABALLERO ([id number]) 1945 F Date Time Provider Department 08/28/22 CHRIS GUTIERREZ During your visit today, we recorded the following information about you: Royer Alcantara 08/28/2022 8:41 AM Signed Referral to Orthopaedics entered into the [facility] portal on 08/28/2022. Confirmation number [id number]. Allergies As of Date: 08/28/2022 Noted Allergy Reaction ADHESIVE 03/31/2019 2 - Rash CARVEDILOL 10/04/2020 14 - Other: See Comments SHELLFISH DERIVED 03/31/2019 18 - Angioedema SULFA (SULFONAMIDE ANTIBIOTICS) 01/25/2015 14 - Other: See Comments 2 - Rash 7 - Swelling Comments: Tongue swelling Date Reviewed: 08/27/2022 Reviewed by: Chris Gutierrez DO - Fully Assessed Reason for Visit: Referral Information [1025] Cmt: Consult to Orthopaedics Prescriptions as of 08/28/2022 - doxazosin (CARDURA) 2 mg tablet Take 4 mg by mouth once daily. - irbesartan (AVAPRO) 300 mg tablet 150 mg twice daily. - amLODIPine (NORVASC) 5 mg tablet Take 5 mg by mouth once daily. - anastrozole (ARIMIDEX) 1 mg tablet Take 1 mg by mouth once daily. - aspirin, enteric coated (ASPIR-81) 81 mg EC tablet Take 81 mg by mouth once daily. - coenzyme Q10 (COENZYME Q-10) 100 mg cap capsule Take 100 mg by mouth once daily. - Multivitamin capsule Take 1 capsule by mouth once daily. - predniSONE (DELTASONE) 10 mg tablet Take 1 tablet by mouth twice daily for 5 days. Problem List As Of Date 08/28/2022 Noted Resolved Polyp of gallbladder [K82.4] 08/27/2022 Nonrheumatic aortic valve insufficiency [I35.1] 07/17/2021 Hypomagnesemia [E83.42] 06/14/2021 Hypokalemia [E87.6] 08/27/2022 Hypocalcemia [E83.51] 08/27/2022 Cardiac arrhythmia [I49.9] 01/15/2022 Biliary sludge [K83.8] 08/27/2022 Ascending aorta dilatation (HCC) [I77.810] 07/17/2021 Essential hypertension [I10] 07/17/2021 Wrist arthritis [M19.039] 08/27/2022 Encounter Status:Closed by ROYER ALCANTARA on 08/28/22 [facility] [place] 08-27-2022 [facility] OLESYA CABALLERO ([id number]) 1945 F Date Time Provider Department 08/27/22 10:00 AM CHRIS GUTIERREZ During your visit today, we recorded the following information about you: Temperature Pulse Respiration Blood pressure 97 degrees 106/minute 20/minute 130/80 Weight Height 76.2 kg 1.626 m Chris Gutierrez DO 08/27/2022 11:06 AM Signed Chris Gutierrez DO [facility] Date of Evaluation: 08/27/2022 Patient Name: Olesya Caballero : 1945 IMPRESSION: This is a 77 year old female with progressive right wrist pain and reduced ROM associated with notable enlargement of scaphoid. Suspect OA with associated tenosynovitis ASSESSMENT/PLAN 1. Malignant neoplasm of breast in female, estrogen receptor positive, unspecified laterality, unspecified site of breast (HCC) - ICD9: 174.9, V86.0, ICD10: C50.919, Z17.0 (primary diagnosis) - following with breast surgeon 2. Ascending aorta dilatation (HCC) - ICD9: 447.71, ICD10: I77.810 - following with cardiology 3. Essential hypertension - ICD9: 401.9, ICD10: I10 - Controlled - Continue current medications - Recommend home blood pressure monitoring, to bring results to next visit - Encouraged sodium restriction, DASH or Mediterranean diet - Recommend regular aerobic exercise 4. Nonrheumatic aortic valve insufficiency - ICD9: 424.1, ICD10: I35.1 5. Wrist arthritis - ICD9: 716.93, ICD10: M19.039 - Trial short course oral steroid - XR WRIST GENERAL 3V PA/LAT/OBL RIGHT - CONSULT TO ORTHOPAEDICS if no improvement with prednisone Chris Gutierrez DO Encounter Diagnosis ICD-10-CM 1. Malignant neoplasm of breast in female, estrogen receptor positive, unspecified laterality, unspecified site of breast (HCC) C50.919 Z17.0 2. Ascending aorta dilatation (HCC) I77.810 3. Essential hypertension I10 4. Nonrheumatic aortic valve insufficiency I35.1 5. Wrist arthritis M19.039 XR WRIST GENERAL 3V PA/LAT/OBL RIGHT CONSULT TO ORTHOPAEDICS Chief Complaint: No chief complaint on file. Subjective Ms. Caballero is a 77 year old female who presents for right wrist pain: HPI Reports long standing issues with episodic pain affecting right wrist. Reports progressive and worsening over past 6 weeks. Aggravated with use and improved with heat and rest. Reports no improvement with OTC therapy or splinting. Has noted gradual enlargement of right lateral aspect of wrist over past years. Presents for BP evaluation. Reports compliance with medication. Denies any issues with light head, dizziness, or overwhelming fatigue. Educated about need for following OP BP. Educated about maintaining low sodium meal plan along with reduced processed foods and starches. ALLERGIES Allergen Reactions Adhesive Rash Carvedilol Other: See Comments Shellfish Derived Angioedema Sulfa (Sulfonamide * Other: See Comments, Rash, Swelling Tongue swelling Social History Tobacco Use Smoking status: Never Smokeless tobacco: Never Substance Use Topics Alcohol use: Yes Comment: social Drug use: Never No past medical history on file. No past surgical history on file. Problem List Items Addressed This Visit Cardiovascular Nonrheumatic aortic valve insufficiency Ascending aorta dilatation (HCC) Essential hypertension Relevant Medications doxazosin (CARDURA) 2 mg tablet irbesartan (AVAPRO) 300 mg tablet amLODIPine (NORVASC) 5 mg tablet Rheumatology Wrist arthritis Relevant Orders XR WRIST GENERAL 3V PA/LAT/OBL RIGHT CONSULT TO ORTHOPAEDICS Other Visit Diagnoses Malignant neoplasm of breast in female, estrogen receptor positive, unspecified laterality, unspecified site of breast (HCC) - Primary Current Outpatient Medications Medication Sig doxazosin (CARDURA) 2 mg tablet Take 4 mg by mouth once daily. irbesartan (AVAPRO) 300 mg tablet 150 mg twice daily. amLODIPine (NORVASC) 5 mg tablet Take 5 mg by mouth once daily. anastrozole (ARIMIDEX) 1 mg tablet Take 1 mg by mouth once daily. aspirin, enteric coated (ASPIR-81) 81 mg EC tablet Take 81 mg by mouth once daily. coenzyme Q10 (COENZYME Q-10) 100 mg cap capsule Take 100 mg by mouth once daily. Multivitamin capsule Take 1 capsule by mouth once daily. predniSONE (DELTASONE) 10 mg tablet Take 1 tablet by mouth twice daily for 5 days. No current facility-administered medications for this visit. I have confirmed and edited as necessary the chief complaint, medications, past medical, family and social histories obtained by others. Objective BP 152/90 Pulse 106 Temp 97 Resp 20 Ht 5' 4 (1.63m) Wt 168 lb (76.2kg) SpO2 97% BMI 28.82 kg/(m2). Last BP 08/27/22 : 152/90 Last Wt 08/27/22 : 76.2 kg (168 lb) Physical Exam Constitutional: General: She is not in acute distress. Eyes: Extraocular Movements: Extrao (more content not included)... Normal [facility] 08-27-2022 CNPN Telephone (AGINT[facility]) OLESYA CABALLERO ([id number]) 1945 F Date Time Provider Department 08/27/22 CHRIS GUTIERREZ During your visit today, we recorded the following information about you: Royer Joselin 08/27/2022 12:08 PM Signed Referral to Orthopaedics entered into the [facility] portal on 08/27/2022. Confirmation number [id number]. Allergies As of Date: 08/27/2022 Noted Allergy Reaction ADHESIVE 03/31/2019 2 - Rash CARVEDILOL 10/04/2020 14 - Other: See Comments SHELLFISH DERIVED 03/31/2019 18 - Angioedema SULFA (SULFONAMIDE ANTIBIOTICS) 01/25/2015 14 - Other: See Comments 2 - Rash 7 - Swelling Comments: Tongue swelling Date Reviewed: 08/27/2022 Reviewed by: Chris Gutierrez DO - Fully Assessed Reason for Visit: Referral Information [5043] Cmt: Consult to Orthopaedics Prescriptions as of 08/27/2022 - doxazosin (CARDURA) 2 mg tablet Take 4 mg by mouth once daily. - irbesartan (AVAPRO) 300 mg tablet 150 mg twice daily. - amLODIPine (NORVASC) 5 mg tablet Take 5 mg by mouth once daily. - anastrozole (ARIMIDEX) 1 mg tablet Take 1 mg by mouth once daily. - aspirin, enteric coated (ASPIR-81) 81 mg EC tablet Take 81 mg by mouth once daily. - coenzyme Q10 (COENZYME Q-10) 100 mg cap capsule Take 100 mg by mouth once daily. - Multivitamin capsule Take 1 capsule by mouth once daily. - predniSONE (DELTASONE) 10 mg tablet Take 1 tablet by mouth twice daily for 5 days. Problem List As Of Date 08/27/2022 Noted Resolved Polyp of gallbladder [K82.4] 08/27/2022 Nonrheumatic aortic valve insufficiency [I35.1] 07/17/2021 Hypomagnesemia [E83.42] 06/14/2021 Hypokalemia [E87.6] 08/27/2022 Hypocalcemia [E83.51] 08/27/2022 Cardiac arrhythmia [I49.9] 01/15/2022 Biliary sludge [K83.8] 08/27/2022 Ascending aorta dilatation (HCC) [I77.810] 07/17/2021 Essential hypertension [I10] 07/17/2021 Wrist arthritis [M19.039] 08/27/2022 Encounter Status:Closed by ROYER ALCANTARA on 08/27/22 Normal [facility] XR WRIST 3V PA/LAT/OBL RTon 08-27-2022 XR WRIST 3V PA/LAT/OBL RT * * *Final Report* * * DATE OF EXAM: Aug 27 2022 12:13PM [id number] - XR WRIST 3V PA/LAT/OBL RT / PROCEDURE REASON: Wrist arthritis * * * * Physician Interpretation * * * * HISTORY (as given from clinical provider): Wrist arthritis . Additional history provided by the performing technologist (if any): RT WRIST PAIN 6 WEEKS TECHNIQUE: XR WRIST 3V PA/LAT/OBL RT COMPARISON: None RESULT: Severe osteoarthritis of the scaphotrapeziotrapezoidal joint. Mild osteoarthritis of the first CMC joint. Carpal alignment is normal. Accessory ossification center the ulnar styloid process. No other significant abnormality. IMPRESSION: OSTEOARTHRITIS Lining Maker: JUSTIN Transcribe Date/Time: Aug 28 2022 5:22P Dictated by : LISA JANE MD This examination was interpreted and the report reviewed and electronically signed by: LISA JANE MD on Aug 28 2022 5:23PM EST [id number] Normal [facility] Basophil percentageon 2021 Basophil percentage < 0.6 mg/dL 0.55-1.02 [facility] Work Phone: No Panel Informationon 06-03 Bedside Estimated GFR (eGFR) > 60.0000 mL/min >60 [facility] Work Phone: Vital Signs Date Time Vital Sign Value Performing Clinician Faci comfort 09-25-2024 14:49-0400 Body height 162.6 cm Jennifer Valles MD Work Phone: [facility] 09-25-2024 14:49-0400 Body mass index (BMI) [Ratio] 28.32 kg/m2 Jennifer Valles MD Work Phone: [facility] 09-25-2024 14:49-0400 Body weight 74.84 kg Jennifer Valles MD Work Phone: [facility] 09-25-2024 14:49-0400 Diastolic blood pressure 88 mm[Hg] Jennifer Valles MD Work Phone: [facility] 09-25-2024 14:49-0400 Heart rate 99 /min Jennifer Valles MD Work Phone: [facility] 09-25-2024 14:49-0400 Respiratory rate 12 /min Jennifer Valles MD Work Phone: [facility] 09-25-2024 14:49-0400 SaO2% (BldA) [Mass fraction] 98 % Jennifer Valles MD Work Phone: [facility] 09-25-2024 14:49-0400 Systolic blood pressure 144 mm[Hg] Jennifer Valles MD Work Phone: [facility] 01-31-2024 14:37-0500 Body mass index (BMI) [Ratio] 29.82 kg/m2 Jennifer Valles MD Work Phone: [facility] 01-31-2024 14:37-0500 Body weight 78.8 kg Jennifer Valles MD Work Phone: [facility] 01-31-2024 14:37-0500 Diastolic blood pressure 78 mm[Hg] Jennifer Valles MD Work Phone: [facility] 01-31-2024 14:37-0500 Heart rate 68 /min Jennifer Valles MD Work Phone: [facility] 01-31-2024 14:37-0500 Respiratory rate 16 /min Jennifer Valles MD Work Phone: [facility] 01-31-2024 14:37-0500 Systolic blood pressure 116 mm[Hg] Jennifer Valles MD Work Phone: [facility] 11-09-2022 13:45-0400 Body height 162.6 cm Jennifer Valles MD Work Phone: [facility] 11-09-2022 13:45-0400 Body weight 75.75 kg Jennifer Valles MD Work Phone: [facility] 11-09-2022 13:45-0400 Diastolic blood pressure 84 mm[Hg] Jennifer Valles MD Work Phone: [facility] 11-09-2022 13:45-0400 Heart rate 108 /min Jennifer Valles MD Work Phone: [facility] 11-09-2022 13:45-0400 SaO2% (BldA) [Mass fraction] 98 % Jennifer Valles MD Work Phone: [facility] 11-09-2022 13:45-0400 Systolic blood pressure 118 mm[Hg] Jennifer Valels MD Work Phone: [facility] 08-27-2022 09:59-0400 Body height 162.6 cm Chris Wiggers DO Work Phone: [facility] 08-27-2022 09:59-0400 Body temperature 97 [degF] Chris Wiggers DO Work Phone: [facility] 08-27-2022 09:59-0400 Body weight 76.2 kg Chris Wiggers DO Work Phone: [facility] 08-27-2022 09:59-0400 Diastolic blood pressure 80 mm[Hg] Chris Wiggers DO Work Phone: [facility] 08-27-2022 09:59-0400 Heart rate 106 /min Chris Wiggers DO Work Phone: [facility] 08-27-2022 09:59-0400 Respiratory rate 20 /min Chris Wiggers DO Work Phone: [facility] 08-27-2022 09:59-0400 SaO2% (BldA) [Mass fraction] 97 % Chris Wiggers DO Work Phone: [facility] 08-27-2022 09:59-0400 Systolic blood pressure 130 mm[Hg] Chris Wiggers DO Work Phone: [facility] 07-17-2021 13:01-0400 Body height 162.[address] Juvencio Velazquez Work Phone: [facility] Work Phone: 07-17-2021 13:01-0400 Body weight 77.[address] Juvencio Velazquez Work Phone: [facility] Work Phone: 07-17-2021 13:01-0400 Diastolic blood pressure 68 mm[Hg] Dr. Juvencio Velazquez Work Phone: [facility] Work Phone: 07-17-2021 13:01-0400 Heart rate 88 /min Dr. Juvencio Velazquez Work Phone: [facility] Work Phone: 07-17-2021 13:01-0400 Respiratory rate 16 /min Dr. Juvencio Velazquez Work Phone: [facility] Work Phone: 07-17-2021 13:01-0400 Systolic blood pressure 144 mm[Hg] Dr. Juvencio Velazquez Work Phone: [facility] Work Phone: 10-04-2020 11:44-0400 Body mass index (BMI) [Ratio] 28.3 kg/m2 Dr. Juvencio Velazquez Work Phone: [facility] Work Phone: Encounters Encounter Date Encounter Type Care Provider Facility Start: 09-25-2024 End: 09-25-2024 Patient encounter procedure Jennifer Valles MD Work Phone: Cardiology Comment on above: Ascending aorta dila tation (Primary Dx); Nonrheumatic aortic valve insufficiency; Essential hypertension Start: 09-25-2024 End: 09-25-2024 ambulatory JENNIFER VALLES Facility:[facility] Start: 05-31-2024 End: 05-31-2024 Follow-up encounter Jennifer Valles MD Work Phone: [facility] Cardiology [place] Comment on above: Results Start: 05-25-2024 [facility] Start: 05-25-2024 End: 05-25-2024 Subsequent hospital visit by physician Ct [facility] Comment on above: Ascending aorta dila tation [I77.810] Start: 05-23-2024 End: 05-23-2024 ambulatory JENNIFER VALLES Facility:[facility] Start: 05-19-2024 End: 05-19-2024 Orders Only Mika Friend RN [facility] Comment on above: Disease of the aorta (HCC) (Primary Dx) Start: 04-18-2024 End: 04-18-2024 ambulatory Juvencio Velazquez Facility:[facility] Start: 01-31-2024 End: 01-31-2024 ambulatory JENNIFER VALLES Facility:[facility] Start: 01-31-2024 End: 01-31-2024 Patient encounter procedure Jennifer Valles MD Work Phone: Cardiology Comment on above: Nonrheumatic aortic valve insufficiency (Primary Dx); Ascending aorta dilatation (HCC); Essential hypertension; Disorder of artery or arteriole (HCC) Start: 09-04-2023 End: 09-04-2023 ambulatory Anjleica Raymundo Facility:[facility] Start: 01-14-2023 End: 01-14-2023 ambulatory [facility] Work Phone: Start: 01-14-2023 End: 01-14-2023 Patient encounter procedure [facility] Work Phone: Start: 11-13-2022 End: 11-13-2022 ambulatory JOSE ROCHA Facility:[facility] Start: 11-09-2022 End: 11-09-2022 Patient encounter procedure Jennifer Valles MD Work Phone: Cardiology Comment on above: Cardiac arrhythmia, unspecified cardiac arrhythmia type (Primary Dx); Nonrheumatic aortic valve insufficiency; Ascending aorta dilatation (HCC); Essential hypertension Start: 08-28-2022 Telephone encounter Chris hodge DO Work Phone: [facility] ([facility]) Comment on above: Referral Information (Consult to Orthopaedics) Start: 08-27-2022 Telephone encounter Chris hodge DO Work Phone: [facility] ([facility]) Comment on above: Referral Information (Consult to Orthopaedics) Start: 08-27-2022 End: 08-27-2022 ambulatory CHRIS GUTIERREZ Facility:[facility] Start: 08-27-2022 End: 08-27-2022 Subsequent hospital visit by physician Xr [facility] Comment on above: Wrist arthritis [M19 .039] Start: 08-27-2022 End: 08-27-2022 Patient encounter procedure Chris Gutierrez DO Work Phone: [facility] ([facility]) Comment on above: Malignant neoplasm o f breast in female, estrogen receptor positive, unspecified laterality, unspecified site of breast (HCC) (Primary Dx); Ascending aorta dilatation (HCC); Essential hypertension; Nonrheumatic aortic valve insufficiency; Wrist arthritis Start: 09-04-2021 Non-patient / Non-visit Dr. Leonid Velazquez Work Phone: [facility] Start: 09-04-2021 End: 09-04-[address] Juvencio Velazquez Work Phone: [facility] Start: 07-17-2021 End: 07-17-[address] Juvencio Velazquez Work Phone: [facility] Start: 06-05-2021 End: 06-05-2021 Patient encounter procedure [facility] Start: 06-03-2021 End: 06-03-2021 Patient encounter procedure [facility], [facility] Procedures Date Procedure Procedure Detail Performing Clinician Start: 05-25-2024 Ct angiography chest w/contrast/noncontrast Jennifer Valles MD Work Phone: Start: 01-14-2023 Screening mammography Start: 06-05-2021 Screening mammography Start: 06-03-2021 CT of thorax with contrast Plan of Treatment Date Care Activity Detail Author Start: 06-08-2028 Urine microalbumin profile [facility] Start: 05-24-2027 Diabetes Screening Diabetes Screenin g [facility] Start: 07-02-2025 End: 07-02-2025 Patient encounter procedure 07/02/2025 3:40 PM EDT Office Visit Cardiology [address] [place] [address] Jennifer Valles MD [address] [facility] [address] [place], [place] [id number] 9 MONTH FOLLOW UP Cardiology Comment on above: 9 MONTH FOLLOW UP Start: 05-01-2025 End: 05-01-2025 Patient encounter procedure 05/01/2025 9:40 AM EST Office Visit Cardiology [address] [place] [address] Dx: Ascending aorta dilatation [I77.810]; Nonrheumatic aortic valve insufficiency [I35.1] Cardiology Comment on above: Dx: Ascending aorta dilatation [I77.810]; Nonrheumatic aortic valve insufficiency [I35.1] Start: 04-30-2025 End: 09-25-2025 Echocardiography ECHO Cardiology Routine Ascending aorta dilatation Nonrheumatic aortic valve insufficiency Expected: 04/30/2025, Expires: 09/25/2025 [facility] Work Phone: Comment on above: Expected: 04/30/2025 , Expires: 09/25/2025 Start: 01-30-2025 BP Controlled (<130/80) BP Controlle d (<130/80) [facility] Start: 10-30-2024 Influenza vaccination Influenza Vacc ine (#1) [facility] Start: 09-25-2024 End: 09-25-2024 Patient encounter procedure Cardiology Comment on above: 6 month follow up Start: 05-25-2024 End: 05-25-2024 Patient encounter procedure Radiology Comment on above: Ascending aorta dila tation (HCC) [I77.810] Left voicemail regar ding labs needed. Order in. SEND TO LAB, #20 IV Ascending aorta dilatation (HCC) [I77.810] Start: 05-19-2024 End: 08-18-2024 CREATININE BLD CREATININE BLD Lab STAT Disease of the aorta (HCC) Expected: 05/19/2024, Expires: 08/18/2024 [facility] Work Phone: Comment on above: Expected: 05/19/2024 , Expires: 08/18/2024 Start: 05-01-2024 End: 07-31-2024 Basic metabolic 2000 panel - Serum or Plasma BASIC METABOLIC PANEL Lab Routine Ascending aorta dilatation (HCC) Essential hypertension Expected: 05/01/2024, Expires: 07/31/2024 [facility] Comment on above: Expected: 05/01/2024 , Expires: 07/31/2024 Start: 05-01-2024 End: 03-01-2025 CTA Chest vessels W contrast IV CTA CHEST (GATED) W IVCON Radiology Routine Ascending aorta dilatation (HCC) Disorder of artery or arteriole (HCC) Expected: 05/01/2024, Expires: 03/01/2025 [facility] Work Phone: Comment on above: Expected: 05/01/2024 , Expires: 03/01/2025 Start: 03-01-2024 Advance Directive Discussion Advance Directive Discussion [facility] Start: 10-31-2023 Covid-19 Vaccine ( season) Covid-19 Vaccine () [facility] Start: 10-31-2023 Influenza vaccination Influenza Vacc ine (#1) [facility] Start: 08-28-2023 ANNUAL PCP TEAM CORPORATE SALES MANAGER GERONIMO DISEASE VISIT ANNUAL PCP TEAM CHRONIC DISEASE VISIT [facility] Start: 03-01-2023 Advance Directive Discussion Advance Directive Discussion [facility] Start: 10-30-2022 Influenza vaccination [facility] Start: 03-01-2022 ADVANCE DIRECTIVE DISCUSSION ADVANCE DIRECTIVE DISCUSSION [facility] Start: 03-01-2022 DEPRESSION ASSESSMENT DEPRESSION ASS ESSMENT [facility] Start: 2021 RSV Vaccine (1 - 1-d ose 75+ series) RSV Vaccine (1 - 1-dose 75+ series) [facility] Start: 02-21-2021 COVID-19 VACCINE (4 - Booster for Pfizer series) COVID-19 VACCINE (4 - Booster for Pfizer series) [facility] Start: 02-21-2021 COVID-19 VACCINE (4 - Pfizer series) COVID-19 VACCINE (4 - Pfizer series) [facility] Start: 05-05-2019 PNEUMOCOCCAL: 65+ (2 - PCV) PNEUMOCOCCAL: 65+ (2 - PCV) [facility] Start: 05-27-2011 BONE DENSITY BONE DENSITY [facility] Start: 05-27-2011 Screening for osteoporosis Bone Dens ity Screening [facility] Start: 04-30-2011 Medicare Annual Well ness Visit Medicare Annual Wellness Visit [facility] Start: 1996 SHINGRIX VACCINE (1 of 2) LERMA GRIX VACCINE (1 of 2) [facility] Start: 05-27-1991 DIABETES SCREEN DIABETES SCREEN [facility] Start: 05-27-1991 Diabetes Screening Diabetes Screenin g [facility] Start: 1964 Anxiety Screening Anxiety Screening [facility] Start: 1964 BP CONTROLLED (<130/80) BP CONTROLLE D (<130/80) [facility] Start: 1964 Depression Screening Depression Scre ening [facility] Start: 1964 HEPATITIS C SCREENING HEPATITIS C [facility] Start: 1964 Hepatitis C screening Hepatitis C [facility] End: 10-28-2023 ECG COMPLETE ECG COMPLETE ECG Routine Cardiac arrhythmia, unspecified cardiac arrhythmia type 1 Occurrences starting 10/27/2022 until 10/28/2023 [facility] Work Phone: Comment on above: 1 Occurrences starti ng 10/27/2022 until 10/28/2023 End: 11-10-2023 Echocardiography ECHO Cardiology Routine Nonrheumatic aortic valve insufficiency Ascending aorta dilatation (HCC) 1 Occurrences starting 11/09/2022 until 11/10/2023 [facility] Work Phone: Comment on above: 1 Occurrences starti ng 11/09/2022 until 11/10/2023 End: 09-26-2023 XR WRIST GENERAL 3V PA/LAT/OBL RIGHT XR WRIST GENERAL 3V PA/LAT/OBL RIGHT Radiology Routine Wrist arthritis 1 Occurrences starting 08/27/2022 until 09/26/2023 [facility] Work Phone: Comment on above: 1 Occurrences starti ng 08/27/2022 until 09/26/2023 End: 08-27-2022 XR WRIST GENERAL 3V PA/LAT/OBL RIGHT [facility] Work Phone: Comment on above: 1 Occurrences starti ng 08/27/2022 until 08/27/2022 [facility] Immunizations Immunization Date Immunization Notes Care Provider [facility] 12-03-2020 influenza (aIIV4) vaccine, age 65+ yr, quadrivalent, PF (FLUAD QUAD) Chris Gutierrez DO Work Phone: [facility] 12-03-2020 influenza virus vacc ine, unspecified formulation Jennifer Valles MD Work Phone: [facility] 11-11-2018 Influenza virus vaccine [facility] 11-11-2018 influenza, high dose seasonal, preservative-free Chris Gutierrez DO Work Phone: [facility] 06-08-2018 tetanus toxoid, redu gokul diphtheria toxoid, and acellular pertussis vaccine, adsorbed Chris Gutierrez DO Work Phone: [facility] 05-04-2018 hepatitis A vaccine, pediatric/adolescent dosage, 2 dose schedule Chris Wiggers DO Work Phone: [facility] 05-04-2018 pneumococcal polysaccharide vaccine, 23 valent Chris Wiggers DO Work Phone: [facility] 12-01-2017 influenza, high dose seasonal, preservative-free Chris Wiggers DO Work Phone: [facility] 08-04-2017 hepatitis A vaccine, pediatric/adolescent dosage, 2 dose schedule Chris Wiggers DO Work Phone: [facility] 01-19-2017 influenza, injectabl e, quadrivalent, contains preservative Chris Wiggers DO Work Phone: [facility] 12-04-2015 influenza, high dose seasonal, preservative-free Chris Wiggers DO Work Phone: [facility] 04-03-2014 pneumococcal conjuga te vaccine, 7 valent Chris Wiggers DO Work Phone: [facility] 11-29-2009 pneumococcal polysaccharide vaccine, 23 valent Chris Wiggers DO Work Phone: [facility] 11-09-2008 diphtheria, tetanus toxoids and acellular pertussis vaccine Chris Wiggers DO Work Phone: [facility] Payers Date Payer Category Payer Self-pay [id number] 2022 Private Health Insurance [id number] 2022 Unknown [id number] 2011 Medicare [id number] 2011 Medicare [id number] Unknown [id number] Unknown [id number] Social History Date Type Detail Facility Start: 10-04-2020 End: 01-15-2022 Tobacco smoking status NHIS Unknown if ever smoked [facility] Start: 03-31-2019 Rare [facility] Start: 03-31-2019 None [facility] Start: 03-31-2019 Spouse/ Signif icant Other [facility] Start: 09-08-2017 Non-smoker [facility] Start: 1945 Sex Assigned At Female [facility] Start: 08-27-2022 Tobacco smoking stat us NHIS Never smoked tobacco [facility] Start: 08-27-2022 Tobacco use and exposure Smokeless tobacco non-user [facility] Start: 08-27-2022 End: 09-25-2024 Alcohol intake Current drinker of alcohol (finding) [facility] Start: 08-27-2022 Alcohol Comment social [facility] Start: 1945 Sex Assigned At Not on file [facility] Start: 08-27-2022 End: 11-09-2022 History of Social function [facility] Work Phone: Start: 08-27-2022 End: 11-09-2022 Tobacco use panel [facility] Work Phone: Adult Depression Screening Assessment 0 [facility] Work Phone: Goals Date Patient Goal Desired Activity /State Personal health goal Clinical Notes 08-27-2022 to 09-25-2024 Patient InstructionsJennifer Valles MD - 09/25/2024 3:00 PM EDTTelephone Encounter - Rosa Saldivar LPN - 05/31/2024 3:14 PM EDTRBebo wynn TECHNOLOGIST - 05/25/2024 1:00 PM EDT Note Date & Type Note Facility 09-25-2024 Instructions Jennifer Valles MD - 09/25/2024 3:04 PM EDT We discussed your aortic aneurysm: - Your recent CAT scan and echocardiogram both showed the aneurysm is stable at 4.5 cm. No changes were noted, which is good news. - To help manage your heart rate and reduce the force of your heartbeat, I recommend starting a new medication. However, since you have had difficulty tolerating beta blockers in the past, we will not prescribe those. Instead, we will explore other options that are better suited for you. - We will plan for a follow-up echocardiogram in April to monitor the aneurysm without exposing you to additional radiation. I will see you after the echo to review the results. We discussed your overall health: - You mentioned feeling exhausted after minimal activity, such as walking to your mailbox. This may be related to the heat or your heart rate. The new medication we discussed may help improve this symptom. Follow-up plan: - Schedule an echocardiogram for April 2023. - Please contact our office if you experience any new or worsening symptoms, such as chest pain, shortness of breath, or dizziness. documented in this encounter [facility] 09-25-2024 History of Present illness Narrative Images from the original note were not included. [facility] Cardiology ([address]) [address] [facility] [id number] OUTPATIENT VISIT DATE 09/25/2024 PRIMARY CARE PHYSICIAN: HISTORY OF PRESENT ILLNESS: Ms. Caballero is a 79 year old woman with a history of hypertension, fibromyalgia, and dilated ascending aorta who is here for routine follow-up. The patient reports feeling generally well but notes that heat significantly affects her, causing exhaustion even with minimal exertion, such as walking to the mailbox. She denies any new or worsening symptoms. A recent CT scan in April showed stable findings with an aortic diameter of 4.5 cm, consistent with previous echocardiogram measurements. She has a history of adverse reactions to multiple antihypertensive medications. She recalls a prior episode where her heart rate dropped to the 30s, rendering her unable to function, which she attributes to metoprolol. She also reports a severe cough with carvedilol. She has tried several beta blockers in the past, all of which reportedly caused significant functional impairment. History reviewed. No pertinent past medical history. History reviewed. No pertinent surgical history. SOCIAL HISTORY Social History Tobacco Use Smoking status: Never Smokeless tobacco: Never Substance Use Topics Alcohol use: Yes Comment: social Drug use: Never History reviewed. No pertinent family history. ALLERGIES: ALLERGIES Allergen Reactions Adhesive Rash Carvedilol Other: See Comments Shellfish Derived Angioedema Sulfa (Sulfonamide * Other: See Comments, Rash, Swelling Tongue swelling MEDICATIONS: amLODIPine (NORVASC) 5 mg tablet Take 1 tablet by mouth once daily. doxazosin (CARDURA) 4 mg tablet Take 1 tablet by mouth once daily. irbesartan (AVAPRO) 300 mg tablet Take 0.5 tablets by mouth two times a day. anastrozole (ARIMIDEX) 1 mg tablet Take 1 mg by mouth once daily. aspirin, enteric coated (ASPIR-81) 81 mg EC tablet Take 81 mg by mouth once daily. coenzyme Q10 (COENZYME Q-10) 100 mg cap capsule Take 100 mg by mouth once daily. Multivitamin capsule Take 1 capsule by mouth once daily. REVIEW OF SYSTEMS: Review of Systems Constitutional: Negative for chills, fever, malaise/fatigue and weight loss. HENT: Negative for hearing loss and sore throat. Eyes: Negative for blurred vision and double vision. Respiratory: Negative. Cardiovascular: Negative. Genitourinary: Negative for dysuria, frequency, hematuria and urgency. Musculoskeletal: Positive for joint pain. Skin: Negative. Neurological: Negative for dizziness, seizures, loss of consciousness, weakness and headaches. Endo/Heme/Allergies: Negative for environmental allergies. Does not bruise/bleed easily. Psychiatric/Behavioral: Negative for depression. PHYSICAL EXAMINATION: BP 144/88 Pulse 99 Resp 12 Ht 5' 4 (1.63m) Wt 165 lb (74.8kg) SpO2 98% BMI 28.31 kg/(m^2). General: Pleasant woman sitting appears comfortable no apparent distress she is alert and oriented x3 HEENT: Carotid upstrokes are brisk without bruits no JVD appreciated. Pulmonary: Lungs are clear no rales, wheezes, rhonchi Cardiovascular: Normal S1, S2 with regular rate and rhythm. No murmurs, rubs, or gallops Extremities: Warm, well-perfused, no lower extremity edema. 2+ distal pulses CARDIOVASCULAR MEDICINE TESTING: ECG in the office 11/09/2022: Normal sinus rhythm with occasional conducted PACs. No significant ST or T wave changes Echocardiogram 05/18/2023: - Exam indication: Ascending aortic aneurysm - The left ventricle is normal in size. There is mild concentric left ventricular hypertrophy. Left ventricular systolic function is normal. EF = 55 5% (2D biplane) Grade I left ventricular diastolic dysfunction. - The right ventricle is normal in size. Right ventricular systolic function is normal. - There are no significant valvular abnormalities. - The visualized aorta is dilated with a maximal dimension of 4.5 cm. Involves distal ascending aorta. - The patient has not had a prior CC echocardiographic exam for comparison. CTA Chest 05/25/2024: IMPRESSION: Moderate dilation of the ascending aorta, measuring 4.5 cm of the aortic root and 4.4 cm at the mid ascending aorta. CORONARY ANATOMY: normal origin of the coronary arteries. Mild calcified atherosclerotic changes of the coronary arteries. However, the current study is not optimized for coronary assessment. IMPRESSION: Ms. Caballero is a 77 year old woman with a history of hypertension and dilated aorta who is here to establish new cardiology follow-up PLAN AND RECOMMENDATIONS: 1. Ascending aorta dilatation - ICD9: 447.71, ICD10: I77.810 (primary diagnosis) Stable at 4.[address] recent [address] scan April 2024. Plan to repeat echocardiogram before next office visit for repeat evaluation. Patient has had prior intolerance to all beta-romero therapy. Could consider changing amlodipine diltiazem for more chronotropic control - ECHO - PERFLUTREN LIPID MICROSPHERES 1.1 MG/ML INJECTION IN NS 10 ML - SODIUM CHLORIDE 0.9 % (FLUSH) INJECTION SYRINGE 2. Nonrheumatic aortic valve insufficiency - ICD9: 424.1, ICD10: I35.1 Not evident on most recent echocardiogram - ECHO - PERFLUTREN LIPID MICROSPHERES 1.1 MG/ML INJECTION IN NS 10 ML - SODIUM CHLORIDE 0.9 % (FLUSH) INJECTION SYRINGE 3. Essential hypertension - ICD9: 401.9, ICD10: I10 Well-controlled on current regimen. Jennifer Valles MD documented in this encounter [facility] 09-25-2024 Note HNO ID: [id number] Author: JENNIFER VALLES MD Service: ? Author Type: Physician Type: Progress Notes Filed: 09/25/2024 15:10 Note Text: [facility] Cardiology ([address]) [address] [facility] [id number] OUTPATIENT VISIT DATE 09/25/2024 PRIMARY CARE PHYSICIAN: HISTORY OF PRESENT ILLNESS: Ms. Caballero is a 79 year old woman with a history of hypertension, fibromyalgia, and dilated ascending aorta who is here for routine follow-up. The patient reports feeling generally well but notes that heat significantly affects her, causing exhaustion even with minimal exertion, such as walking to the mailbox. She denies any new or worsening symptoms. A recent CT scan in April showed stable findings with an aortic diameter of 4.5 cm, consistent with previous echocardiogram measurements. She has a history of adverse reactions to multiple antihypertensive medications. She recalls a prior episode where her heart rate dropped to the 30s, rendering her unable to function, which she attributes to metoprolol. She also reports a severe cough with carvedilol. She has tried several beta blockers in the past, all of which reportedly caused significant functional impairment. History reviewed. No pertinent past medical history. History reviewed. No pertinent surgical history. SOCIAL HISTORY Social History Tobacco Use Smoking status: Never Smokeless tobacco: Never Substance Use Topics Alcohol use: Yes Comment: social Drug use: Never History reviewed. No pertinent family history. ALLERGIES: ALLERGIES Allergen Reactions Adhesive Rash Carvedilol Other: See Comments Shellfish Derived Angioedema Sulfa (Sulfonamide * Other: See Comments, Rash, Swelling Tongue swelling MEDICATIONS: amLODIPine (NORVASC) 5 mg tablet Take 1 tablet by mouth once daily. doxazosin (CARDURA) 4 mg tablet Take 1 tablet by mouth once daily. irbesartan (AVAPRO) 300 mg tablet Take 0.5 tablets by mouth two times a day. anastrozole (ARIMIDEX) 1 mg tablet Take 1 mg by mouth once daily. aspirin, enteric coated (ASPIR-81) 81 mg EC tablet Take 81 mg by mouth once daily. coenzyme Q10 (COENZYME Q-10) 100 mg cap capsule Take 100 mg by mouth once daily. Multivitamin capsule Take 1 capsule by mouth once daily. REVIEW OF SYSTEMS: Review of Systems Constitutional: Negative for chills, fever, malaise/fatigue and weight loss. HENT: Negative for hearing loss and sore throat. Eyes: Negative for blurred vision and double vision. Respiratory: Negative. Cardiovascular: Negative. Genitourinary: Negative for dysuria, frequency, hematuria and urgency. Musculoskeletal: Positive for joint pain. Skin: Negative. Neurological: Negative for dizziness, seizures, loss of consciousness, weakness and headaches. Endo/Heme/Allergies: Negative for environmental allergies. Does not bruise/bleed easily. Psychiatric/Behavioral: Negative for depression. PHYSICAL EXAMINATION: BP 144/88 Pulse 99 Resp 12 Ht 5' 4 (1.63m) Wt 165 lb (74.8kg) SpO2 98% BMI 28.31 kg/(m2). General: Pleasant woman sitting appears comfortable no apparent distress she is alert and oriented x3 HEENT: Carotid upstrokes are brisk without bruits no JVD appreciated. Pulmonary: Lungs are clear no rales, wheezes, rhonchi Cardiovascular: Normal S1, S2 with regular rate and rhythm. No murmurs, rubs, or gallops Extremities: Warm, well-perfused, no lower extremity edema. 2+ distal pulses CARDIOVASCULAR MEDICINE TESTING: ECG in the office 11/09/2022: Normal sinus rhythm with occasional conducted PACs. No significant ST or T wave changes Echocardiogram 05/18/2023: - Exam indication: Ascending aortic aneurysm - The left ventricle is normal in size. There is mild concentric left ventricular hypertrophy. Left ventricular systolic function is normal. EF = 55 ? 5% (2D biplane) Grade I left ventricular diastolic dysfunction. - The right ventricle is normal in size. Right ventricular systolic function is normal. - There are no significant valvular abnormalities. - The visualized aorta is dilated with a maximal dimension of 4.5 cm. Involves distal ascending aorta. - The patient has not had a prior CC echocardiographic exam for comparison. CTA Chest 05/25/2024: IMPRESSION: Moderate dilation of the ascending aorta, measuring 4.5 cm of the aortic root and 4.4 cm at the mid ascending aorta. CORONARY ANATOMY: normal origin of the coronary arteries. Mild calcified atherosclerotic changes of the coronary arteries. However, the current study is not optimized for coronary assessment. IMPRESSION: Ms. Caballero is a 77 year old woman with a history of hypertension and dilated aorta who is here to establish new cardiology follow-up PLAN AND RECOMMENDATIONS: 1. Ascending aorta dilatation - ICD9: 447.71, ICD10: I77.810 (primary diagnosis) Stable at 4.5 cm on most recent CT sca (more content not included)... [facility] 05-31-2024 Telephone encounter Note Spoke with patient about test results and recommendation to continue yearly observation and no change in medical therapy at this time. Patient verbalizes understanding and is agreeable. Rosa Saldivar LPN [facility] 05-31-2024 Miscellaneous Notes Spoke with patient about test results and recommendation to continue yearly observation and no change in medical therapy at this time. Patient verbalizes understanding and is agreeable. Rosa Saldivar LPN Images from the original note were not included. Jennifer Valles MD to Olesya Caballero 05/31/24 3:12 PM Danny Dacosta reviewed your CT scan. Your aorta is enlarged at 4.5 cm. Your echocardiogram showed similar findings last year. We will need to continue yearly observation. No change in medical therapy at this time. I will review in more detail at your next office visit Felipe Valles This MyChart message has not been read. CTA CHEST (GATED) W IVCON documented in this encounter [facility] 05-31-2024 Telephone encounter Note Images from the original note were not included. Jennifer Valles MD to Olesya Caballero 05/31/24 3:12 PM Danny Dacosta reviewed your CT scan. Your aorta is enlarged at 4.5 cm. Your echocardiogram showed similar findings last year. We will need to continue yearly observation. No change in medical therapy at this time. I will review in more detail at your next office visit Felipe Valles This MyChart message has not been read. CTA CHEST (GATED) W IVCON [facility] 05-25-2024 History of Present illness Narrative Radiology Service Progress Note PATIENT NAME: Olesya Caballero DATE OF SERVICE: May 25, 2024 TIME: 1:04 PM PATIENT IDENTITY VERIFICATION COMPLETED USING TWO (2) IDENTIFIERS: Name and Date of confirmed by patient verbally and Name and Date of confirmed by identification band. FALL SCREENING: Has the patient had 2 falls in the last year or 1 fall with injury or currently using an Ambulatory Assistive Device (Walker, Cane, Wheelchair, Crutches, etc.)? No PATIENT GENDER DATA: Assigned female at . status: : No status: NO. PATIENT RELEVANT IMPLANT DATA REVIEWED: Yes PATIENT PRESENTS WITH AN IMPLANTABLE OR ATTACHED SAFETY PERSON: No RADIOLOGY DEPARTMENT: CT; Exam(s) Completed: Cardiac PERIPHERAL IV DATA: Site assessment: Clean,Dry and Intact, Site disposition Discontinued SIGNED BY: TECHNOLOGIST Liang May 25, 2024 1:04 PM documented in this encounter [facility] 05-25-2024 Note HNO ID: [id number] Author: BEBO MENDOZA TECHNOLOGIST Service: Radiology Author Type: Technologist Type: Progress Notes Filed: 05/25/2024 13:17 Note Text: Radiology Service Progress Note PATIENT NAME: Olesya Caballero DATE OF SERVICE: May 25, 2024 TIME: 1:04 PM PATIENT IDENTITY VERIFICATION COMPLETED USING TWO (2) IDENTIFIERS: Name and Date of confirmed by patient verbally and Name and Date of confirmed by identification band. FALL SCREENING: Has the patient had 2 falls in the last year or 1 fall with injury or currently using an Ambulatory Assistive Device (Walker, Cane, Wheelchair, Crutches, etc.)? No PATIENT GENDER DATA: Assigned female at . status: : No status: NO. PATIENT RELEVANT IMPLANT DATA REVIEWED: Yes PATIENT PRESENTS WITH AN IMPLANTABLE OR ATTACHED SAFETY PERSON: No RADIOLOGY DEPARTMENT: CT; Exam(s) Completed: Cardiac PERIPHERAL IV DATA: Site assessment: Clean,Dry and Intact, Site disposition Discontinued SIGNED BY: TECHNOLOGIST Liang May 25, 2024 1:04 PM [facility] 05-25-2024 Nurse Note Radiology Service Progress Note DATE OF SERVICE: May 25, 2024 TIME: 12:57 PM PATIENT WEIGHT: 173 LBS PATIENT IDENTITY VERIFICATION COMPLETED USING TWO (2) STANDARD IDENTIFIERS: Name and Date of confirmed by patient verbally. FALL SCREENING: Has the patient had 2 falls in the last year or 1 fall with injury or currently using an Ambulatory Assistive Device (Walker, Cane, Wheelchair, Crutches, etc.)? No PATIENT GENDER DATA: Assigned female at . status: : No status: NO. ALLERGIES: Reviewed and unchanged CONTRAST ALLERGY: No EXAM: CT -CONTRAST INDUCED NEPHROPATHY RISK FACTORS: Patient age > 60 years CREATININE: Creatinine Date Value Ref Range Status 05/23/2024 0.84 0.58 - 0.96 mg/dL Final Estimated Glomerular Filtration Rate Date Value Ref Range Status 05/23/2024 72 >=60 mL/min/1.73m Final Comment: Estimated Glomerular Filtration Rate (eGFR) is calculated using the 2020 CKD-EPI creatinine equation. This equation utilizes serum creatinine, sex, and age as parameters. The creatinine assay has traceable calibration to isotope dilution-mass spectrometry. Refer to KDIGO guidelines for clinical interpretation. In patients with unstable renal function, e.g. those with acute kidney injury, the eGFR may not accurately reflect actual GFR. P.O.C.T. RESULTS: POC done: Yes, See Lab Tab May 25, 2024 TREATMENT: N/A IV SITE: Ambulatory: A peripheral IV was started in the Left antecubital site with a Angio cath: 20 gauge. IV SITE APPEARANCE: Clean,Dry and Intact SIGNATURE: Mika Friend RN PATIENT NAME: Olesya Caballero DATE: May 25, 2024 TIME: 12:57 PM T [facility] 05-25-2024 Nurse Note Radiology Service Progress Note DATE OF SERVICE: May 25, 2024 TIME: 12:57 PM PATIENT WEIGHT: 173 LBS PATIENT IDENTITY VERIFICATION COMPLETED USING TWO (2) STANDARD IDENTIFIERS: Name and Date of confirmed by patient verbally. FALL SCREENING: Has the patient had 2 falls in the last year or 1 fall with injury or currently using an Ambulatory Assistive Device (Walker, Cane, Wheelchair, Crutches, etc.)? No PATIENT GENDER DATA: Assigned female at . status: : No status: NO. ALLERGIES: Reviewed and unchanged CONTRAST ALLERGY: No EXAM: CT -CONTRAST INDUCED NEPHROPATHY RISK FACTORS: Patient age > 60 years CREATININE: Creatinine Date Value Ref Range Status 05/23/2024 0.84 0.58 - 0.96 mg/dL Final Estimated Glomerular Filtration Rate Date Value Ref Range Status 05/23/2024 72 >=60 mL/min/1.73m Final Comment: Estimated Glomerular Filtration Rate (eGFR) is calculated using the 2020 CKD-EPI creatinine equation. This equation utilizes serum creatinine, sex, and age as parameters. The creatinine assay has traceable calibration to isotope dilution-mass spectrometry. Refer to KDIGO guidelines for clinical interpretation. In patients with unstable renal function, e.g. those with acute kidney injury, the eGFR may not accurately reflect actual GFR. P.O.C.T. RESULTS: POC done: Yes, See Lab Tab May 25, 2024 TREATMENT: N/A IV SITE: Ambulatory: A peripheral IV was started in the Left antecubital site with a Angio cath: 20 gauge. IV SITE APPEARANCE: Clean,Dry and Intact SIGNATURE: Mika Friend RN PATIENT NAME: Olesya Caballero DATE: May 25, 2024 TIME: 12:57 PM documented in this encounter [facility] 01-31-2024 Instructions Jennifer Valles MD - 01/31/2024 2:47 PM EST We will order a CT scan of your chest in You will need blood work one week prior to your CT documented in this encounter [facility] 01-31-2024 History of Present illness Narrative Images from the original note were not included. [facility] CARDIOLOGY Cardiology ([address]) [address] [facility] [address] OUTPATIENT VISIT DATE 01/31/2024 PRIMARY CARE PHYSICIAN: HISTORY OF PRESENT ILLNESS: Ms. Caballero is a 78 year old woman with a history of hypertension, fibromyalgia, and dilated ascending aorta who is here for routine follow-up. She has no specific complaints since her last visit. She has difficulties due to her fibromyalgia and arthritis. She has not had chest pain, chest pressure, shortness of breath, or dyspnea on exertion. She denies symptoms concerning for congestive heart failure including PND, orthopnea, or lower extremity edema. No past medical history on file. No past surgical history on file. SOCIAL HISTORY Social History Tobacco Use Smoking status: Never Smokeless tobacco: Never Substance Use Topics Alcohol use: Yes Comment: social Drug use: Never No family history on file. ALLERGIES: ALLERGIES Allergen Reactions Adhesive Rash Carvedilol Other: See Comments Shellfish Derived Angioedema Sulfa (Sulfonamide * Other: See Comments, Rash, Swelling Tongue swelling MEDICATIONS: anastrozole (ARIMIDEX) 1 mg tablet^Take 1 mg by mouth once daily.^Disp: ^Rfl: aspirin, enteric coated (ASPIR-81) 81 mg EC tablet^Take 81 mg by mouth once daily.^Disp: ^Rfl: coenzyme Q10 (COENZYME Q-10) 100 mg cap capsule^Take 100 mg by mouth once daily.^Disp: ^Rfl: Multivitamin capsule^Take 1 capsule by mouth once daily.^Disp: ^Rfl: amLODIPine (NORVASC) 5 mg tablet^Take 1 tablet by mouth once daily.^Disp: 90 tablet^Rfl: 3 doxazosin (CARDURA) 4 mg tablet^Take 1 tablet by mouth once daily.^Disp: 90 tablet^Rfl: 3 irbesartan (AVAPRO) 300 mg tablet^Take 0.5 tablets by mouth two times a day.^Disp: 90 tablet^Rfl: 3 REVIEW OF SYSTEMS: Review of Systems Constitutional: Negative for chills, fever, malaise/fatigue and weight loss. HENT: Negative for hearing loss and sore throat. Eyes: Negative for blurred vision and double vision. Respiratory: Negative. Cardiovascular: Negative. Genitourinary: Negative for dysuria, frequency, hematuria and urgency. Musculoskeletal: Positive for joint pain. Skin: Negative. Neurological: Negative for dizziness, seizures, loss of consciousness, weakness and headaches. Endo/Heme/Allergies: Negative for environmental allergies. Does not bruise/bleed easily. Psychiatric/Behavioral: Negative for depression. PHYSICAL EXAMINATION: BP 116/78 Pulse 68 Resp 16 Wt 173 lb 11.6 oz (78.8kg) General: Pleasant woman sitting appears comfortable no apparent distress she is alert and oriented x3 HEENT: Carotid upstrokes are brisk without bruits no JVD appreciated. Pulmonary: Lungs are clear no rales, wheezes, rhonchi Cardiovascular: Normal S1, S2 with regular rate and rhythm. No murmurs, rubs, or gallops Extremities: Warm, well-perfused, no lower extremity edema. 2+ distal pulses CARDIOVASCULAR MEDICINE TESTING: ECG in the office 11/09/2022: Normal sinus rhythm with occasional conducted PACs. No significant ST or T wave changes Echocardiogram 05/18/2023: - Exam indication: Ascending aortic aneurysm - The left ventricle is normal in size. There is mild concentric left ventricular hypertrophy. Left ventricular systolic function is normal. EF = 55 5% (2D biplane) Grade I left ventricular diastolic dysfunction. - The right ventricle is normal in size. Right ventricular systolic function is normal. - There are no significant valvular abnormalities. - The visualized aorta is dilated with a maximal dimension of 4.5 cm. Involves distal ascending aorta. - The patient has not had a prior CC echocardiographic exam for comparison. IMPRESSION: Ms. Caballero is a 77 year old woman with a history of hypertension and dilated aorta who is here to establish new cardiology follow-up PLAN AND RECOMMENDATIONS: 1. Nonrheumatic aortic valve insufficiency - ICD9: 424.1, ICD10: I35.1 (primary diagnosis) No significant valvular heart disease noted on most recent echocardiogram 2. Ascending aorta dilatation (HCC) - ICD9: 447.71, ICD10: I77.810 Related ascending aorta 4.[address] scan. Continue current medical therapy and aggressive treatment of her hypertension - CTA CHEST (GATED) W IVCON - BASIC METABOLIC PANEL 3. Essential hypertension - ICD9: 401.9, ICD10: I10 Well-controlled on current regimen - BASIC METABOLIC PANEL 4. Disorder of artery or arteriole (HCC) - ICD9: 447.9, ICD10: I77.9 - CTA CHEST (GATED) W IVCON Jennifer Valles MD documented in this encounter [facility] 01-31-2024 Note HNO ID: [id number] Author: JENNIFER VALLES MD Service: ? Author Type: Physician Type: Progress Notes Filed: 01/31/2024 14:51 Note Text: [facility] Cardiology ([facility] ) [address] [facility] [address] OUTPATIENT VISIT DATE 01/31/2024 PRIMARY CARE PHYSICIAN: HISTORY OF PRESENT ILLNESS: Ms. Caballero is a 78 year old woman with a history of hypertension, fibromyalgia, and dilated ascending aorta who is here for routine follow-up. She has no specific complaints since her last visit. She has difficulties due to her fibromyalgia and arthritis. She has not had chest pain, chest pressure, shortness of breath, or dyspnea on exertion. She denies symptoms concerning for congestive heart failure including PND, orthopnea, or lower extremity edema. No past medical history on file. No past surgical history on file. SOCIAL HISTORY Social History Tobacco Use Smoking status: Never Smokeless tobacco: Never Substance Use Topics Alcohol use: Yes Comment: social Drug use: Never No family history on file. ALLERGIES: ALLERGIES Allergen Reactions Adhesive Rash Carvedilol Other: See Comments Shellfish Derived Angioedema Sulfa (Sulfonamide * Other: See Comments, Rash, Swelling Tongue swelling MEDICATIONS: anastrozole (ARIMIDEX) 1 mg tabletTake 1 mg by mouth once daily.Disp: Rfl: aspirin, enteric coated (ASPIR-81) 81 mg EC tabletTake 81 mg by mouth once daily.Disp: Rfl: coenzyme Q10 (COENZYME Q-10) 100 mg cap capsuleTake 100 mg by mouth once daily.Disp: Rfl: Multivitamin capsuleTake 1 capsule by mouth once daily.Disp: Rfl: amLODIPine (NORVASC) 5 mg tabletTake 1 tablet by mouth once daily.Disp: 90 tabletRfl: 3 doxazosin (CARDURA) 4 mg tabletTake 1 tablet by mouth once daily.Disp: 90 tabletRfl: 3 irbesartan (AVAPRO) 300 mg tabletTake 0.5 tablets by mouth two times a day.Disp: 90 tabletRfl: 3 REVIEW OF SYSTEMS: Review of Systems Constitutional: Negative for chills, fever, malaise/fatigue and weight loss. HENT: Negative for hearing loss and sore throat. Eyes: Negative for blurred vision and double vision. Respiratory: Negative. Cardiovascular: Negative. Genitourinary: Negative for dysuria, frequency, hematuria and urgency. Musculoskeletal: Positive for joint pain. Skin: Negative. Neurological: Negative for dizziness, seizures, loss of consciousness, weakness and headaches. Endo/Heme/Allergies: Negative for environmental allergies. Does not bruise/bleed easily. Psychiatric/Behavioral: Negative for depression. PHYSICAL EXAMINATION: BP 116/78 Pulse 68 Resp 16 Wt 173 lb 11.6 oz (78.8kg) General: Pleasant woman sitting appears comfortable no apparent distress she is alert and oriented x3 HEENT: Carotid upstrokes are brisk without bruits no JVD appreciated. Pulmonary: Lungs are clear no rales, wheezes, rhonchi Cardiovascular: Normal S1, S2 with regular rate and rhythm. No murmurs, rubs, or gallops Extremities: Warm, well-perfused, no lower extremity edema. 2+ distal pulses CARDIOVASCULAR MEDICINE TESTING: ECG in the office 11/09/2022: Normal sinus rhythm with occasional conducted PACs. No significant ST or T wave changes Echocardiogram 05/18/2023: - Exam indication: Ascending aortic aneurysm - The left ventricle is normal in size. There is mild concentric left ventricular hypertrophy. Left ventricular systolic function is normal. EF = 55 ? 5% (2D biplane) Grade I left ventricular diastolic dysfunction. - The right ventricle is normal in size. Right ventricular systolic function is normal. - There are no significant valvular abnormalities. - The visualized aorta is dilated with a maximal dimension of 4.5 cm. Involves distal ascending aorta. - The patient has not had a prior CC echocardiographic exam for comparison. IMPRESSION: Ms. Caballero is a 77 year old woman with a history of hypertension and dilated aorta who is here to establish new cardiology follow-up PLAN AND RECOMMENDATIONS: 1. Nonrheumatic aortic valve insufficiency - ICD9: 424.1, ICD10: I35.1 (primary diagnosis) No significant valvular heart disease noted on most recent echocardiogram 2. Ascending aorta dilatation (HCC) - ICD9: 447.71, ICD10: I77.810 Related ascending aorta 4.[address] scan. Continue current medical therapy and aggressive treatment of her hypertension - CTA CHEST (GATED) W IVCON - BASIC METABOLIC PANEL 3. Essential hypertension - ICD9: 401.9, ICD10: I10 Well-controlled on current regimen - BASIC METABOLIC PANEL 4. Disorder of artery or arteriole (HCC) - ICD9: 447.9, ICD10: I77.9 - CTA CHEST (GATED) W IVCON Jennifer Valles MD [facility] 11-13-2022 Note HNO ID: [id number] Author: Jose Rocha MD Service: ? Author Type: Physician Type: Progress Notes Filed: 11/16/2022 11:37 AM Note Text: Patient presents with: Right Wrist - New HISTORY OF PRESENT ILLNESS Olesya Caballero is a 77 year old female right hand dominant who presents for evaluation of right wrist pain. Patient localizes the area of discomfort to the region of the STT pointing directly to the volar wrist. She has no history of trauma. Symptoms have been present for some time but over the past several months have been much more severe. No history of trauma. No prior treatment aside from oral anti-inflammatories and a brace. Location: Right wrist Severity: 5 on a scale of 0-10 Duration of symptoms: Worsening over the past several months Date of injury n/a Symptoms have Worsened Previous treatment: See above Context worse with Activity/Motion Occupation: food safety specialist Smoking status: Tobacco Use: Never REVIEW OF SYSTEMS Cardiovascular ROS:No history of chest pain, palpitation, orthopnea, cyanosis, pedal edema Neurologic ROS: Numbness and Tingling:No PAST MEDICAL HISTORY Past medical, surgical, family, and social histories have been reviewed and updated with the patient today and are located elsewhere in the medical record. Diabetes:No ALLERGIES ALLERGIES Allergen Reactions Adhesive Rash Carvedilol Other: See Comments Shellfish Derived Angioedema Sulfa (Sulfonamide * Other: See Comments, Rash, Swelling Tongue swelling PHYSICAL EXAMINATION Resp 18 Ht 162.6 cm (5' 4) Wt 76.2 kg (168 lb) BMI 28.84 kg/m? Body mass index is 28.84 kg/m?. General Appearance Well appearing, alert, in no acute distress, well-hydrated, well nourished. Alert and oriented times: 3 Normal affect times: 3 Appears stated age and well nourished Gait and station:normal Right Upper Extremity Exam: Inspection shows some volar swelling at the wrist. There is some slight synovitis of the FCR associated with this Skin: WNL No wounds or lacerations Tenderness to palpation: Tender with deep palpation along the scaphoid head/STT articulation ROM: Full composite fist Tolerates wrist flexion and extension Instability: none Sensation:Normal sensation Atrophy: None Brisk capillary refill Special tests: None with resisted wrist extension REVIEW OF STUDIES X-rays 08/27/2022 3 views of the right wrist: Severe osteoarthritis of the scaphotrapeziotrapezoidal joint. Mild osteoarthritis of the first CMC joint. Carpal alignment is normal. Accessory ossification center the ulnar styloid process. No other significant abnormality. ASSESSMENT AND PLAN ASSESSMENT/PLAN: 1. 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 Her symptoms and exam are consistent with severe STT arthritis and some associated tenosynovitis of the FCR tendon. We reviewed treatment options including anti-inflammatories, bracing, injections, surgery. She like to proceed with the injection today. Please see procedure note. We will follow-up in 1 month to assess her progress. All of her questions were answered to her satisfaction. Medium Joint Arthro/Inj: R intercarpal Informed Consent Consent Obtained: Verbal Alba Protocol A moment to CARE was completed. SIGN IN Personnel directly involved with the procedure wore the appropriate PPE. Patient/Surrogate Stated/Verified: Patient name, Date of , Relevant allergies and Intended procedure TIME OUT Intended patient and procedure match the source document(s). Relevant labs, photos, and/or imaging studies have been reviewed. Correct side/site marked and visible. Medications required for procedure verified. 11/13/2022 10:56 AM The procedure site was prepped in the usual sterile fashion. Medications: 12 mg betamethasone acetate-betamethasone sodium phosphate 6 mg/mL Anesthetics: 1 mL lidocaine (PF) 10 mg/mL (1 %) Outcome: tolerated well, no immediate complications Post-injection instructions were reviewed with the patient and the patient voiced understanding of these instructions. SIGN OUT All instruments, equipment, possible retained foreign bodies accounted for. Jose Rocha MD Patient educated on treatment options for STT arthritis. Patient instructed to call the office with questions or concerns. [facility] 11-09-2022 History of Present illness Narrative Images from the original note were not included. [facility] SECTION [facility] REGIONAL CARDIOLOGY Cardiology ([address]) [address] [facility] [id number] OUTPATIENT VISIT DATE 11/09/2022 PRIMARY CARE PHYSICIAN: REFERRING PHYSICIAN: No referring provider defined for this encounter. CHIEF COMPLAINT: Establish new cardiology follow-up HISTORY OF PRESENT ILLNESS: Ms. Caballero is a 77 year old woman with a history of hypertension, fibromyalgia, and dilated ascending aorta who is here to establish new cardiology follow-up. She is a prior patient of Dr. Medina. She does well from a functional standpoint and continues to work about 20 hours a week. She has not had symptoms of chest pain or pressure. Tells me her blood pressure is often fairly labile and affected by weather. She has not had symptoms concerning for CHF including PND, orthopnea, or lower extremity edema. She denies palpitations, lightheadedness, dizziness, or syncope. History reviewed. No pertinent past medical history. History reviewed. No pertinent surgical history. SOCIAL HISTORY Social History Tobacco Use Smoking status: Never Smokeless tobacco: Never Substance Use Topics Alcohol use: Yes Comment: social Drug use: Never History reviewed. No pertinent family history. ALLERGIES: ALLERGIES Allergen Reactions Adhesive Rash Carvedilol Other: See Comments Shellfish Derived Angioedema Sulfa (Sulfonamide * Other: See Comments, Rash, Swelling Tongue swelling MEDICATIONS: doxazosin (CARDURA) 2 mg tablet^Take 4 mg by mouth once daily.^Disp: ^Rfl: irbesartan (AVAPRO) 300 mg tablet^150 mg twice daily.^Disp: ^Rfl: amLODIPine (NORVASC) 5 mg tablet^Take 5 mg by mouth once daily.^Disp: ^Rfl: anastrozole (ARIMIDEX) 1 mg tablet^Take 1 mg by mouth once daily.^Disp: ^Rfl: aspirin, enteric coated (ASPIR-81) 81 mg EC tablet^Take 81 mg by mouth once daily.^Disp: ^Rfl: coenzyme Q10 (COENZYME Q-10) 100 mg cap capsule^Take 100 mg by mouth once daily.^Disp: ^Rfl: Multivitamin capsule^Take 1 capsule by mouth once daily.^Disp: ^Rfl: REVIEW OF SYSTEMS: Review of Systems Constitutional: Negative for chills, fever, malaise/fatigue and weight loss. HENT: Negative for hearing loss and sore throat. Eyes: Negative for blurred vision and double vision. Respiratory: Negative. Cardiovascular: Negative. Genitourinary: Negative for dysuria, frequency, hematuria and urgency. Musculoskeletal: Positive for joint pain. Skin: Negative. Neurological: Negative for dizziness, seizures, loss of consciousness, weakness and headaches. Endo/Heme/Allergies: Negative for environmental allergies. Does not bruise/bleed easily. Psychiatric/Behavioral: Negative for depression. PHYSICAL EXAMINATION: BP 118/84 Pulse 108 Ht 5' 4 (1.63m) Wt 167 lb (75.8kg) SpO2 98% BMI 28.65 kg/(m^2). General: Pleasant woman sitting appears comfortable no apparent distress she is alert and oriented x3 HEENT: Carotid upstrokes are brisk without bruits no JVD appreciated. Pulmonary: Lungs are clear no rales, wheezes, rhonchi Cardiovascular: Normal S1, S2 with regular rate and rhythm. No murmurs, rubs, or gallops Extremities: Warm, well-perfused, no lower extremity edema. 2+ distal pulses CARDIOVASCULAR MEDICINE TESTING: ECG in the office 11/09/2022: Normal sinus rhythm with occasional conducted PACs. No significant ST or T wave changes IMPRESSION: Ms. Caballero is a 77 year old woman with a history of hypertension and dilated aorta who is here to establish new cardiology follow-up PLAN AND RECOMMENDATIONS: 1. Cardiac arrhythmia, unspecified cardiac arrhythmia type - ICD9: 427.9, ICD10: I49.9 (primary diagnosis) Patient with history of conducted PACs. No symptoms of VTE. - ECG COMPLETE 2. Nonrheumatic aortic valve insufficiency - ICD9: 424.1, ICD10: I35.1 - ECHO 3. Ascending aorta dilatation (HCC) - ICD9: 447.71, ICD10: I77.810 History of dilated aorta with possible aortic valve insufficiency not appreciated on physical examination. Recheck 2D echocardiogram - ECHO 4. Essential hypertension - ICD9: 401.9, ICD10: I10 History of medication intolerance. Seems to be well controlled on current regimen. Jennifer Valles MD documented in this encounter [facility] 11-09-2022 Instructions Jennifer Valles MD - 11/09/2022 2:16 PM EDT We are scheduling you for an echocardiogram documented in this encounter [facility] 08-28-2022 Miscellaneous Notes Referral to Orthopaedics entered into the [facility] portal on 08/28/2022. Confirmation number [id number]. documented in this encounter [facility] 08-27-2022 Note HNO ID: [id number] Author: Chris Gutierrez DO Service: ? Author Type: Physician Type: Progress Notes Filed: 08/27/2022 11:06 AM Note Text: Chris Gutierrez DO [facility] Date [facility] Evaluation: 08/27/2022 Patient Name: Olesya Caballero : 1945 IMPRESSION: This is a 77 year old female with progressive right wrist pain and reduced ROM associated with notable enlargement of scaphoid. Suspect OA with associated tenosynovitis ASSESSMENT/PLAN 1. Malignant neoplasm of breast in female, estrogen receptor positive, unspecified laterality, unspecified site of breast (HCC) - ICD9: 174.9, V86.0, ICD10: C50.919, Z17.0 (primary diagnosis) - following with breast surgeon 2. Ascending aorta dilatation (HCC) - ICD9: 447.71, ICD10: I77.810 - following with cardiology 3. Essential hypertension - ICD9: 401.9, ICD10: I10 - Controlled - Continue current medications - Recommend home blood pressure monitoring, to bring results to next visit - Encouraged sodium restriction, DASH or Mediterranean diet - Recommend regular aerobic exercise 4. Nonrheumatic aortic valve insufficiency - ICD9: 424.1, ICD10: I35.1 5. Wrist arthritis - ICD9: 716.93, ICD10: M19.039 - Trial short course oral steroid - XR WRIST GENERAL 3V PA/LAT/OBL RIGHT - CONSULT TO ORTHOPAEDICS if no improvement with prednisone Chris Gutierrez, DO Encounter Diagnosis ICD-10-CM 1. Malignant neoplasm of breast in female, estrogen receptor positive, unspecified laterality, unspecified site of breast (HCC) C50.919 Z17.0 2. Ascending aorta dilatation (HCC) I77.810 3. Essential hypertension I10 4. Nonrheumatic aortic valve insufficiency I35.1 5. Wrist arthritis M19.039 XR WRIST GENERAL 3V PA/LAT/OBL RIGHT CONSULT TO ORTHOPAEDICS Chief Complaint: No chief complaint on file. Subjective Ms. Caballero is a 77 year old female who presents for right wrist pain: HPI Reports long standing issues with episodic pain affecting right wrist. Reports progressive and worsening over past 6 weeks. Aggravated with use and improved with heat and rest. Reports no improvement with OTC therapy or splinting. Has noted gradual enlargement of right lateral aspect of wrist over past years. Presents for BP evaluation. Reports compliance with medication. Denies any issues with light head, dizziness, or overwhelming fatigue. Educated about need for following OP BP. Educated about maintaining low sodium meal plan along with reduced processed foods and starches. ALLERGIES Allergen Reactions Adhesive Rash Carvedilol Other: See Comments Shellfish Derived Angioedema Sulfa (Sulfonamide * Other: See Comments, Rash, Swelling Tongue swelling Social History Tobacco Use Smoking status: Never Smokeless tobacco: Never Substance Use Topics Alcohol use: Yes Comment: social Drug use: Never No past medical history on file. No past surgical history on file. Problem List Items Addressed This Visit Cardiovascular Nonrheumatic aortic valve insufficiency Ascending aorta dilatation (HCC) Essential hypertension Relevant Medications doxazosin (CARDURA) 2 mg tablet irbesartan (AVAPRO) 300 mg tablet amLODIPine (NORVASC) 5 mg tablet Rheumatology Wrist arthritis Relevant Orders XR WRIST GENERAL 3V PA/LAT/OBL RIGHT CONSULT TO ORTHOPAEDICS Other Visit Diagnoses Malignant neoplasm of breast in female, estrogen receptor positive, unspecified laterality, unspecified site of breast (HCC) - Primary Current Outpatient Medications Medication Sig doxazosin (CARDURA) 2 mg tablet Take 4 mg by mouth once daily. irbesartan (AVAPRO) 300 mg tablet 150 mg twice daily. amLODIPine (NORVASC) 5 mg tablet Take 5 mg by mouth once daily. anastrozole (ARIMIDEX) 1 mg tablet Take 1 mg by mouth once daily. aspirin, enteric coated (ASPIR-81) 81 mg EC tablet Take 81 mg by mouth once daily. coenzyme Q10 (COENZYME Q-10) 100 mg cap capsule Take 100 mg by mouth once daily. Multivitamin capsule Take 1 capsule by mouth once daily. predniSONE (DELTASONE) 10 mg tablet Take 1 tablet by mouth twice daily for 5 days. No current facility-administered medications for this visit. I have confirmed and edited as necessary the chief complaint, medications, past medical, family and social histories obtained by others. Objective BP 152/90 Pulse 106 Temp 97 Resp 20 Ht 5' 4 (1.63m) Wt 168 lb (76.2kg) SpO2 97% BMI 28.82 kg/(m2). Last BP 08/27/22 : 152/90 Last Wt 08/27/22 : 76.2 kg (168 lb) Physical Exam Constitutional: General: She is not in acute distress. Eyes: Extraocular Movements: Extraocular movements intact. Pupils: Pupils are equal, round, and reactive to light. Cardiovascular: Rate and Rhythm: Normal rate and regular rhythm. Pulmonary: Effort: Pulmonary effort is normal. Breath sounds: Normal breath sounds. Abdominal: General: Abdomen is flat. Bowel sounds are normal. Palpati (more content not included)... [facility] 08-27-2022 Miscellaneous Notes Referral to Orthopaedics entered into the [facility] portal on 08/27/2022. Confirmation number [id number]. documented in this encounter [facility] 08-27-2022 History of Present illness Narrative Images from the original note were not included. Chris Gutierrez DO [facility] Date of Evaluation: 08/27/2022 Patient Name: Olesya Caballero : 1945 IMPRESSION: This is a 77 year old female with progressive right wrist pain and reduced ROM associated with notable enlargement of scaphoid. Suspect OA with associated tenosynovitis ASSESSMENT/PLAN 1. Malignant neoplasm of breast in female, estrogen receptor positive, unspecified laterality, unspecified site of breast (HCC) - ICD9: 174.9, V86.0, ICD10: C50.919, Z17.0 (primary diagnosis) - following with breast surgeon 2. Ascending aorta dilatation (HCC) - ICD9: 447.71, ICD10: I77.810 - following with cardiology 3. Essential hypertension - ICD9: 401.9, ICD10: I10 - Controlled - Continue current medications - Recommend home blood pressure monitoring, to bring results to next visit - Encouraged sodium restriction, DASH or Mediterranean diet - Recommend regular aerobic exercise 4. Nonrheumatic aortic valve insufficiency - ICD9: 424.1, ICD10: I35.1 5. Wrist arthritis - ICD9: 716.93, ICD10: M19.039 - Trial short course oral steroid - XR WRIST GENERAL 3V PA/LAT/OBL RIGHT - CONSULT TO ORTHOPAEDICS if no improvement with prednisone Chris Gutierrez, DO Encounter Diagnosis ICD-10-CM 1. Malignant neoplasm of breast in female, estrogen receptor positive, unspecified laterality, unspecified site of breast (HCC) C50.919 Z17.0 2. Ascending aorta dilatation (HCC) I77.810 3. Essential hypertension I10 4. Nonrheumatic aortic valve insufficiency I35.1 5. Wrist arthritis M19.039 XR WRIST GENERAL 3V PA/LAT/OBL RIGHT CONSULT TO ORTHOPAEDICS Chief Complaint: No chief complaint on file. Subjective Ms. Caballero is a 77 year old female who presents for right wrist pain: HPI Reports long standing issues with episodic pain affecting right wrist. Reports progressive and worsening over past 6 weeks. Aggravated with use and improved with heat and rest. Reports no improvement with OTC therapy or splinting. Has noted gradual enlargement of right lateral aspect of wrist over past years. Presents for BP evaluation. Reports compliance with medication. Denies any issues with light head, dizziness, or overwhelming fatigue. Educated about need for following OP BP. Educated about maintaining low sodium meal plan along with reduced processed foods and starches. ALLERGIES Allergen Reactions Adhesive Rash Carvedilol Other: See Comments Shellfish Derived Angioedema Sulfa (Sulfonamide * Other: See Comments, Rash, Swelling Tongue swelling Social History Tobacco Use Smoking status: Never Smokeless tobacco: Never Substance Use Topics Alcohol use: Yes Comment: social Drug use: Never No past medical history on file. No past surgical history on file. Problem List Items Addressed This Visit Cardiovascular Nonrheumatic aortic valve insufficiency Ascending aorta dilatation (HCC) Essential hypertension Relevant Medications doxazosin (CARDURA) 2 mg tablet irbesartan (AVAPRO) 300 mg tablet amLODIPine (NORVASC) 5 mg tablet Rheumatology Wrist arthritis Relevant Orders XR WRIST GENERAL 3V PA/LAT/OBL RIGHT CONSULT TO ORTHOPAEDICS Other Visit Diagnoses Malignant neoplasm of breast in female, estrogen receptor positive, unspecified laterality, unspecified site of breast (HCC) - Primary Current Outpatient Medications Medication Sig doxazosin (CARDURA) 2 mg tablet Take 4 mg by mouth once daily. irbesartan (AVAPRO) 300 mg tablet 150 mg twice daily. amLODIPine (NORVASC) 5 mg tablet Take 5 mg by mouth once daily. anastrozole (ARIMIDEX) 1 mg tablet Take 1 mg by mouth once daily. aspirin, enteric coated (ASPIR-81) 81 mg EC tablet Take 81 mg by mouth once daily. coenzyme Q10 (COENZYME Q-10) 100 mg cap capsule Take 100 mg by mouth once daily. Multivitamin capsule Take 1 capsule by mouth once daily. predniSONE (DELTASONE) 10 mg tablet Take 1 tablet by mouth twice daily for 5 days. No current facility-administered medications for this visit. I have confirmed and edited as necessary the chief complaint, medications, past medical, family and social histories obtained by others. Objective BP 152/90 Pulse 106 Temp 97 Resp 20 Ht 5' 4 (1.63m) Wt 168 lb (76.2kg) SpO2 97% BMI 28.82 kg/(m^2). Last BP 08/27/22 : 152/90 Last Wt 08/27/22 : 76.2 kg (168 lb) Physical Exam Constitutional: General: She is not in acute distress. Eyes: Extraocular Movements: Extraocular movements intact. Pupils: Pupils are equal, round, and reactive to light. Cardiovascular: Rate and Rhythm: Normal rate and regular rhythm. Pulmonary: Effort: Pulmonary effort is normal. Breath sounds: Normal breath sounds. Abdominal: General: Abdomen is flat. Bowel sounds are normal. Palpations: Abdomen is soft. Musculoskeletal: General: Normal range of motion. Cervical back: Normal range of motion and neck supple. Lymphadenopathy: Cervical: No cervical adenopathy. Skin: General: Skin is warm and dry. Neurological: General: No focal deficit present. Mental Status: She is alert and oriented to person, place, and time. Psychiatric: Mood and Affect: Mood normal. Behavior: Behavior normal. Hand/Wrist Musculoskeletal Exam Inspection Right Right hand/wrist inspection is normal. Palpation Right Right hand palpation is normal. Dorsal hand - 1st metacarpal tenderness to palpation: middle Palm - 1st metacarpal tenderness to palpation: middle Wrist tenderness to palpation: first dorsal compartment Range of Motion Right Wrist Passive Extension: 70 Passive Flexion: 70 Passive Radial Deviation: 30 Passive Ulnar Deviation: 30 Strength Right Wrist Right wrist strength is normal. Neurovascular Right Right neurovascular exam is normal. All most recent studies and notes reviewed. No follow-ups on file. Discussed the above with the patient using shared decision making. The patient is in agreement with the diagnostic and treatment plans. Patient to follow-up as advised or sooner if problem worsens or does not resolve. documented in this encounter [facility] Evaluation note No assessment information availa [facility] Work Phone: Evaluation note Diagnosis Onset Date Ascending aorta dilation acu te Non-rheumatic mitral regurgitation acute Non-rheumatic tricuspid valve insufficiency acute Nonrheumatic aortic (valve) insufficiency acute Syncope acute Essential hypertension [facility] Work Phone: Evaluation note* Diagnosis Malignant neoplasm of breast in female, estrogen receptor positive, unspecified laterality, unspecified site of breast (HCC)- Primary Ascending aorta dilatation (HCC) Thoracic aortic ectasia Essential hypertension Unspecified essential hypertension Nonrheumatic aortic valve insufficiency Aortic valve disorders Wrist arthritis Unspecified arthropathy, forearm [facility] Wrist arthritis Unspecified arthropathy, forearm [facility] Cardiac arrhythmia, unspecified cardiac arrhythmia type- Primary Nonrheumatic aortic valve insufficiency Aortic valve disorders Ascending aorta dilatation (HCC) Thoracic aortic ectasia Essential hypertension Unspecified essential hypertension [facility] Nonrheumatic aortic valve insufficiency- Primary Aortic valve disorders Ascending aorta dilatation (HCC) Thoracic aortic ectasia Essential hypertension Unspecified essential hypertension Disorder of artery or arteriole (HCC) Unspecified disorders of arteries and arterioles [facility] Disease of the aorta (HCC)- Primary Unspecified disorders of arteries and arterioles [facility] Diagnosis Ascending aorta dilatation Thoracic aortic ectasia Disorder of artery or arteriole Unspecified disorders of arteries and arterioles [facility] Ascending aorta dilatation- Primary Thoracic aortic ectasia Nonrheumatic aortic valve insufficiency Aortic valve disorders Essential hypertension Unspecified essential hypertension documented in this encounter [facility] for referral (narrative)* Diagnostic Procedure Only (Routine) - Closed Specialty Diagnoses / Procedures Referred By Contac t Referred To Contact XR IMAGING Diagnoses Wrist arthritis Procedures XR WRIST GENERAL 3V PA/LAT/OBL RIGHT RADEX WRIST COMPLETE MINIMUM 3 VIEWS Chris Gutierrez DO 1 [facility] [address] [place] [address] Xr Imaging Referral ID Status Reason Start Date Expiration Date V isits Requested Visits Authorized [id number] Closed Auto-Generate d Referral 08/27/2022 09/26/2023 1 1 [facility] for referral (narrative)* Outpatient Procedure (Routine) - Authorized Specialty Diagnoses / Procedures Referred By Contac t Referred To Contact [facility] Diagnoses Nonrheumatic aortic valve insufficiency Ascending aorta dilatation (HCC) Procedures ECHO ECHO TTHRC R-T 2D W/WOM-MODE COMPL SPEC&COLR D Jennifer Valles MD [address] [place] [address] [facility] [place] [id number] Referral ID Status Reason Start Date Expiration Date Visits Requested Visits Authorized [id number] Authorized Auto-Generat ed Referral 11/09/2022 11/09/2023 1 1 * Outpatient Procedure (Routine) - Closed Specialty Diagnoses / Procedures Referred By Contac t Referred To Contact [facility] Diagnoses Cardiac arrhythmia, unspecified cardiac arrhythmia type Procedures ECG COMPLETE ECG ROUTINE ECG W/LEAST 12 LDS W/I&R Jennifer Valles MD [address] [place] [id number] [facility] [place] [id number] [place] [address] Referral ID Status Reason Start Date Expiration Date V isits Requested Visits Authorized [id number] Closed Auto-Generate d Referral 10/27/2022 10/27/2023 1 1 [facility] for visit Narrative* Diagnostic Procedure Only (Routine) - Closed Specialty Diagnoses / Procedures Referred By Contac t Referred To Contact XR IMAGING Diagnoses Wrist arthritis Procedures XR WRIST GENERAL 3V PA/LAT/OBL RIGHT RADEX WRIST COMPLETE MINIMUM 3 VIEWS Chris Gutierrez, DO 1 [facility] [address] [place] [address] Xr Imaging Referral ID Status Reason Start Date Expiration Date V isits Requested Visits Authorized [id number] Closed Auto-Generate d Referral 08/27/2022 09/26/2023 1 1 [facility] for visit Narrative* MRI/CT (Routine) - Closed Specialty Diagnoses / Procedures Referred By Contac t Referred To Contact CT IMAGING Diagnoses Ascending aorta dilatation Disorder of artery or arteriole Procedures CTA CHEST (GATED) W IVCON CT ANGIOGRAPHY CHEST W/CONTRAST/NONCONTRAST Jennifer Valles MD [address] [place] [address] Phone: tel: fax: [place] [phone] Referral ID Status Reason Start Date Expiration Date V isits Requested Visits Authorized [id number] Closed Auto-Generate d Referral 05/01/2024 03/01/2025 1 1 [facility] Chief Complaint and Reason for Visit Chief Complaint AORTIC ROOT DILATTAT ION BREAST CANCER SCREENING Chief Complaint AORTIC ROOT DILATTAT ION BREAST CANCER SCREENING 9 M FU WITH PFM MURMUR Reason for Visit Ascending aorta dila tion Non-rheumatic mitral regurgitation Non-rheumatic tricuspid valve insufficiency Nonrheumatic aortic (valve) insufficiency Syncope Essential hypertension Chief Complaint SCREENING Family History No Family History Records Found Relationship Condition Age at Onset Recorded Date/T javi mother Arthritis Unknown Hypertension Unknown Cardiac disease Unknown High blood cholesterol Unknown Osteoporosis Unknown father Malignant neoplasm of skin Unknown sister Kidney disorder Unknown Unknown Advance Directives No Advanced Directives Records Found Advance Directive Response Recorded Date/ Time Advance Directives Yes September 10 9:39am Living Will Yes March 31 6:18pm Power of Ditching Machine Operating Engineer Yes March 31, 2019 6:18pm Advance Directive Response Recorded Date/ Time Advance Directives Yes September 10 8:39am Living Will Yes March 31 5:18pm Power of Ditching Machine Operating Engineer Yes March 31, 2019 5:18pm Reason for Referral Specialty Diagnoses / Procedures Referred By Contac t Referred To Contact Orthopedics Diagnoses Wrist arthritis Procedures CONSULT TO ORTHOPAEDICS OFFICE/OUTPATIENT NEW HIGH MDM 60-74 MINUTES Chris Gutierrez, DO 1 [place] [address] Jose Rocha MD [address] [place] [address] Referral ID Status Reason Start Date Expiration Date Visits Requested Visits Authorized [id number] Authorized PCP Requested Referral 08/27/2022 11/25/2022 1 1 Specialty Diagnoses / Procedures Referred By Contac t Referred To Contact XR IMAGING Diagnoses Wrist arthritis Procedures XR WRIST GENERAL 3V PA/LAT/OBL RIGHT RADEX WRIST COMPLETE MINIMUM 3 VIEWS Chris Gutierrez, DO 1 [place] [address] Xr Imaging Referral ID Status Reason Start Date Expiration Date V isits Requested Visits Authorized [id number] Closed Auto-Generate d Referral 08/27/2022 09/26/2023 1 1 Specialty Diagnoses / Procedures Referred By Contac t Referred To Contact CT IMAGING Diagnoses Ascending aorta dilatation (HCC) Disorder of artery or arteriole (HCC) Procedures CTA CHEST (GATED) W IVCON CT ANGIOGRAPHY CHEST W/CONTRAST/NONCONTRAST Jennifer Valles MD [address] [place] [address] [facility] Referral ID Status Reason Start Date Expiration Date Visits Requested Visits Authorized [id number] Authorized Auto-Generat ed Referral 05/01/2024 03/01/2025 1 1 Summary Purpose Additional Source Comments Goals (unrecognized section and content) Goals may be documented in a n alternate sectionGoals may be documented in an alternate sectionGoals may be documented in an alternate section Source Comments (unrecognize d section and content) In the event this informatio n is protected by the Federal Confidentiality of Alcohol and Drug Abuse Patient Records regulations: The Federal rules restrict any use of the information to criminally investigate or prosecute any alcohol or drug abuse patient.[facility] the event this information is protected by the Federal Confidentiality of Alcohol and Drug Abuse Patient Records regulations: The Federal rules restrict any use of the information to criminally investigate or prosecute any alcohol or drug abuse patient.[facility] the event this information is protected by the Federal Confidentiality of Alcohol and Drug Abuse Patient Records regulations: The Federal rules restrict any use of the information to criminally investigate or prosecute any alcohol or drug abuse patient.[facility] the event this information is protected by the Federal Confidentiality of Alcohol and Drug Abuse Patient Records regulations: The Federal rules restrict any use of the information to criminally investigate or prosecute any alcohol or drug abuse patient.[facility] the event this information is protected by the Federal Confidentiality of Alcohol and Drug Abuse Patient Records regulations: The Federal rules restrict any use of the information to criminally investigate or prosecute any alcohol or drug abuse patient.[facility] the event this information is protected by the Federal Confidentiality of Alcohol and Drug Abuse Patient Records regulations: The Federal rules restrict any use of the information to criminally investigate or prosecute any alcohol or drug abuse patient.[facility] the event this information is protected by the Federal Confidentiality of Alcohol and Drug Abuse Patient Records regulations: The Federal rules restrict any use of the information to criminally investigate or prosecute any alcohol or drug abuse patient.[facility] the event this information is protected by the Federal Confidentiality of Alcohol and Drug Abuse Patient Records regulations: The Federal rules restrict any use of the information to criminally investigate or prosecute any alcohol or drug abuse patient.[facility] the event this information is protected by the Federal Confidentiality of Alcohol and Drug Abuse Patient Records regulations: The Federal rules restrict any use of the information to criminally investigate or prosecute any alcohol or drug abuse patient.[facility] the event this information is protected by the Federal Confidentiality of Alcohol and Drug Abuse Patient Records regulations: The Federal rules restrict any use of the information to criminally investigate or prosecute any alcohol or drug abuse patient.[facility] Reason for Visit (unrecogniz ed section and content) Reason Comments Referral Information Consult to Orthopae dics Reason Comments New Patient Reason Comments Follow Up Reason Onset Date Comments Results 05/31/2024 Reason Comments Follow Up 7 month follow up INFORMATION SOURCE (unrecogn ized section and content) DATE CREATED AUTHOR 11/18/2022 [facility] DATE CREATED AUTHOR AUTHOR'S ORGANIZ ATION 05/05/2024 [facility] DATE CREATED AUTHOR AUTHOR'S ORGANIZ ATION 2024 [facility] DATE CREATED AUTHOR AUTHOR'S ORGANIZ ATION 09/26/2024 [facility] Care Teams (unrecognized sec tion and content) Team Status: Active Member Role Status Dates Dr. Juvencio Velazquez MD Family Provider Active Dr. Juvencio Velazquez MD Primary Care Provider Active Team Status: Inactive Member Role Status Dates Dr. Juvencio Velazquez MD Primary Care Provider Active [facility] Link Attending Provider, Referr ing Provider Active FOR RECORDS PERTAINING TO PATIENTS WHO ARE OR HAVE BEEN ENROLLED IN A CHEMICAL DEPENDENCY/SUBSTANCEABUSE PROGRAM, SOME INFORMATION MAY BE OMITTED. This clinical summary was aggregated from multiple sources. Caution should be exercised in using it in the provision of clinical care. This summary normalizes information from multiple sources, and as a consequence, information in this document may materially change the coding, format and clinical context of patient data. In addition, data may be omitted in some cases. CLINICAL DECISIONS SHOULD BE BASED ON THE PRIMARY CLINICAL RECORDS. [facility] [employer] [facility]. provides no warranty or guarantee of the accuracy or completeness of information in this document.
[2025-01-23 13:00] LABS: Creatinine, Urine (random) 50.80 mg/dL (28.00-217.00); Microalbumin,Random Urine < 12.0 mg/L (<20 mg/L)
[2025-01-23 13:19] LABS: AST(SGOT) 22 U/L (<=31); Alanine Aminotransfer ALT/SGPT 20 U/L (<=34); Albumin, Serum 4.1 g/dL (3.4-4.8); Alkaline Phosphatase 82 U/L (35-104); Anion Gap 12 (5-15); BUN 15 mg/dL (4-19); BUN/Creat Ratio 20.1 RATIO (10-20); Calcium,Total 9.4 mg/dL (7.6-11.0); Carbon Dioxide 22.3 mmol/L (21.0-32.0); Chloride 106 mmol/L (98-108); Cholesterol 183 mg/dL (<=200); Globulin 2.8 g/dL (2.2-4.2); Glucose 86 mg/dL (70-99); Potassium 4.1 mmol/L (3.3-5.1)
== END | disposition home or self-care (01) ==
LOC: MFPLAB 08:14
PROVIDERS: PCP Family Medicine; Visit Provider Family Medicine
DX: I10 Essential (primary) hypertension (principal)
CPT/HCPCS: 36415; 80053; 82043; 82465; 82570; 83718; 84443